=== PATIENT | male | born 1965 | race Caucasian/White ===

== ENCOUNTER 2018-01-08 17:04 | Inpatient (IN) | payer BC ==
[~2018-01-08] VITALS: Ht 182.9 cm; Wt 88.9 kg
[~2018-01-08 17:04] MED LIST: AMX500 PO; CMD25 PO; CRD200 PO; SIMV20TA2 PO
[2018-01-08] MEDS ORDERED: SODIUM CHLORIDE 0.9% 1000ML 1,000 ML IV STA ×3 (17:43→20:09)
[2018-01-08] MEDS ORDERED: SODIUM CHLORIDE 0.9% 500ML 500 ML IV STA (17:43)
[2018-01-08] MEDS ORDERED: ONDANSETRON INJ 2 MG/ML 2 ML VIAL IV STA (17:46)
[2018-01-08] MEDS: HYDROmorphone INJ 0.5 MG/0.5 ML SYR IV PRN ×2 (18:00→22:57)
[2018-01-08] MEDS ORDERED: CRD200 PO (18:05)
[2018-01-08] MEDS ORDERED: WARF2.5T8 PO ×2 (18:05)
[2018-01-08 18:08] LABS: HEMATOCRIT 43.6 % (42-52); HEMOGLOBIN 15.6 g/dL (14.0-18.0); MEAN CELL VOLUME 86.7 fL (80-100); MEAN CORPUSCULAR HGB CONC 35.8 g/dl (32-36); MEAN PLATELET VOLUME 9.5 fL (7.4-10.4); PLATELET COUNT 211 K/uL (130-400); RED CELL DISTRIBUTION WIDTH CV 13.1 % (11.5-14.5); RED CELL DISTRIBUTION WIDTH SD 41.7 fL (36.4-46.3); WHITE BLOOD COUNT 13.69 K/uL (4.8-10.8)
--- NOTE | 2018-01-08 18:21 | DIAGNOSTIC IMAGING REPORT ---
ABD/PELVIS NO IV OR ORAL CONT CT DOSE: 499.83 mGy.cm HISTORY: Pain anuria, LLQ pain, dehydration TECHNIQUE: Multiaxial CT images of the abdomen and pelvis were performed without contrast. A dose lowering technique was utilized adhering to the principles of ALARA. COMPARISON STUDY: None. FINDINGS: The lung bases are clear. The unenhanced liver, spleen, gallbladder, pancreas, kidneys, and adrenal glands are within normal limits. No bowel wall thickening or obstruction. The pelvic organs are unremarkable. No suspicious lytic or blastic osseous lesions. 2 cm left renal cyst. The adrenal glands are normal. Nonobstructive bowel pattern. Normal appendix. IMPRESSION: Small left renal cyst. Otherwise negative study. The above report was generated using voice recognition software. It may contain grammatical, syntax or spelling errors. Electronically signed by: Morgan Crowell M.D. 01/08/2018 6:20 PM Dictated Date/Time: 01/08/2018 6:18 PM
[2018-01-08 18:25] LABS: ALBUMIN 3.6 gm/dl (3.4-5.0); BLOOD UREA NITROGEN 10 mg/dl (7-18); CALCIUM 7.9 mg/dl (8.5-10.1); CARBON DIOXIDE 26 mmol/L (21-32); CREATININE 1.28 mg/dl (0.60-1.40); GLUCOSE 135 mg/dl (70-99); LIPASE 88 U/L (73-393); SODIUM 137 mmol/L (136-145)
[2018-01-08 18:26] LABS: BASO % 0.1 %; BASO ABS # 0.01 K/uL (0-0.2); IG# 0.05 K/uL (0.00-0.02); INR 2.5 (0.9-1.1); LYMPH ABS # 0.82 K/uL (1.2-3.4); MONO % 5.8 %; NEUT % 87.7 %; NEUT ABS # 12.01 K/uL (1.4-6.5); PTT PATIENT 38.7 SECONDS (21.0-31.0)
[2018-01-08 18:35] LABS: ALKALINE PHOSPHATASE 87 U/L (45-117); ALT/SGPT 209 U/L (12-78); AST/SGOT 119 U/L (15-37); CKMB 0.9 ng/ml (0.5-3.6); TOTAL PROTEIN 7.4 gm/dl (6.4-8.2)
[2018-01-08] MEDS ORDERED: POTASSIUM CHLORIDE 10 MEQ TABCR PO STA (19:46)
[2018-01-08] MEDS ORDERED: MAGNESIUM SULFATE 1GM / D5W 1 GM BAG IV STA (20:09)
[2018-01-08] MEDS ORDERED: ACETYLCYSTEINE IV 21 HOUR REGIMEN IV STA (20:16)
--- NOTE | 2018-01-08 20:16 | EMERGENCY ROOM VISIT NOTE ---
History Report prepared by Destini: Bob Blue Under the Supervision of: Dr. Beck Golden M.D. First contact with patient: 17:38 Chief Complaint: UNABLE TO VOID Stated Complaint: ABDOMINAL PAIN, UNABLE TO URINATE History of Present Illness The patient is a 52 year old male who presents to the Emergency Room with complaints of a persistent inability to urinate today. He states that he currently cannot urinate, and it valencia whenever he tries to urinate. He notes that he has been sick for a week, and has not been eating or drinking well. The patient says that he has been having diarrhea over the past few days, and 4 days ago, he had around 6 episodes. He says that he has had intermittent chills and warm spells with sweats. He notes that currently he cannot have a bowel movement, and it valencia whenever he tries to go. He adds that he has some abdominal pain and low lumbar back pain with this. He rates his pain as a 7 or 8 out of 10. He says that he takes Amiodarone for an irregular heartbeat. He notes that he has been taking Tylenol during his illness. Pt denies LOC, headache, visual changes, neck pain, chest pain, breathing difficulties, nausea , vomiting, melena, hematochezia, numbness, weakness, lymphadenopathy, rash, or other complaints. Source of History: patient Onset: Today Position: other (global) Symptom Intensity: cannot urinate Quality: other (inability to urinate) Timing: other (persistent) Associated Symptoms: + chills, + diaphoresis (night sweats), + abdominal pain, + back pain, + diarrhea, + urinary symptoms Review of Systems See HPI for pertinent positives and negatives. A total of ten systems were reviewed and were otherwise negative. Past Medical & Surgical Medical Problems: (1) Ebsteins anomaly (2) Paroxysmal atrial fibrillation (3) Sepsis Surgical Problems: (1) Hx of atrial septal defect repair Family History No pertinent family history Social History Smoking Status: Never Smoker Alcohol Use: occasionally Marital Status: Housing Status: lives with family Occupation Status: employed Current/Historical Medications Scheduled Amiodarone HCl (Amiodarone HCl), 200 MG PO DAILY Atorvastatin (Lipitor), 1 TAB PO DAILY Warfarin Sod (Jantoven), 2.5 MG PO 5XWK Warfarin Sod (Jantoven), 1.25 MG PO 2XWK Allergies Coded Allergies: No Known Allergies (Verified , 06/16/05) Physical Exam Vital Signs Date Time Temp Pulse Resp B/P (MAP) Pulse Ox O2 Delivery O2 Flow Rate FiO2 01/08/18 23:04 37.9 83 14 122/92 94 Room Air 01/08/18 21:07 78 01/08/18 21:00 78 17 118/90 94 Room Air 01/08/18 19:54 95 16 125/82 98 Room Air 01/08/18 18:37 100 16 112/77 95 Room Air 01/08/18 18:00 98 Room Air 01/08/18 17:08 37.1 120 20 126/77 99 Room Air Physical Exam GENERAL: Awake, alert, well-appearing, in no distress HENT: Normocephalic, atraumatic. Oropharynx unremarkable. EYES: Normal conjunctiva. Sclera non-icteric. NECK: Supple. No nuchal rigidity. FROM. No masses. RESPIRATORY: Clear to auscultation. No wheezes. No rales. Normal respiratory effort. CARDIAC: Normal rate. Normal rhythm. No murmurs. No rubs. Extremities warm and well perfused. Pulses equal. No JVD. GI: Soft, non-distended. Left lower quadrant tenderness. No rebound or guarding. No masses. RECTAL: Deferred. MUSCULOSKELETAL: Atraumatic. Chest examination reveals no tenderness. The back is symmetrical on inspection without obvious abnormality. There is no CVA tenderness to palpation. No joint edema. LOWER EXTREMITIES: Calves are equal size bilaterally and non-tender. No edema. No discoloration. NEURO: Normal sensorium. No sensory or motor deficits noted. SKIN: No rash or jaundice noted. Medical Decision & Procedures ER Provider Diagnostic Interpretation: CT: Radiology results as stated below per my review and radiologist interpretation ABD/PELVIS NO IV OR ORAL CONT CT DOSE: 499.83 mGy.cm HISTORY: Pain anuria, LLQ pain, dehydration TECHNIQUE: Multiaxial CT images of the abdomen and pelvis were performed without contrast. A dose lowering technique was utilized adhering to the principles of ALARA. COMPARISON STUDY: None. FINDINGS: The lung bases are clear. The unenhanced liver, spleen, gallbladder, pancreas, kidneys, and adrenal glands are within normal limits. No bowel wall thickening or obstruction. The pelvic organs are unremarkable. No suspicious lytic or blastic osseous lesions. 2 cm left renal cyst. The adrenal glands are normal. Nonobstructive bowel pattern. Normal appendix. IMPRESSION: Small left renal cyst. Otherwise negative study. The above report was generated using voice recognition software. It may contain grammatical, syntax or spelling errors. Electronically signed by: Morgan Crowell M.D. 01/08/2018 6:20 PM Dictated Date/Time: 01/08/2018 6:18 PM Laboratory Results 01/08/18 17:56 Red Blood Count 5.03, Mean Corpuscular Volume 86.7, Mean Corpuscular Hemoglobin 31.0, Mean Corpuscular Hemoglobin Concent 35.8, Mean Platelet Volume 9.5, Neutrophils (%) (Auto) 87.7, Lymphocytes (%) (Auto) 6.0, Monocytes (%) (Auto) 5.8, Eosinophils (%) (Auto) 0.0, Basophils (%) (Auto) 0.1, Neutrophils # (Auto) 12.01, Lymphocytes # (Auto) 0.82, Monocytes # (Auto) 0.80, Eosinophils # (Auto) 0.00, Basophils # (Auto) 0.01 01/08/18 17:56 Test 01/08/18 17:56 01/08/18 20:13 01/08/18 20:20 01/08/18 21:42 White Blood Count 13.69 K/uL (4.8-10.8) Red Blood Count 5.03 M/uL (4.7-6.1) Hemoglobin 15.6 g/dL (14.0-18.0) Hematocrit 43.6 % (42-52) Mean Corpuscular Volume 86.7 fL (80-100) Mean Corpuscular Hemoglobin 31.0 pg (25-34) Mean Corpuscular Hemoglobin Concent 35.8 g/dl (32-36) Platelet Count 211 K/uL (130-400) Mean Platelet Volume 9.5 fL (7.4-10.4) Neutrophils (%) (Auto) 87.7 % Lymphocytes (%) (Auto) 6.0 % Monocytes (%) (Auto) 5.8 % Eosinophils (%) (Auto) 0.0 % Basophils (%) (Auto) 0.1 % Neutrophils # (Auto) 12.01 K/uL (1.4-6.5) Lymphocytes # (Auto) 0.82 K/uL (1.2-3.4) Monocytes # (Auto) 0.80 K/uL (0.11-0.59) Eosinophils # (Auto) 0.00 K/uL (0-0.5) Basophils # (Auto) 0.01 K/uL (0-0.2) RDW Standard Deviation 41.7 fL (36.4-46.3) RDW Coefficient of Variation 13.1 % (11.5-14.5) Immature Granulocyte % (Auto) 0.4 % Immature Granulocyte # (Auto) 0.05 K/uL (0.00-0.02) Prothrombin Time 25.8 SECONDS (9.0-12.0) Prothromb Time International Ratio 2.5 (0.9-1.1) Activated Partial Thromboplast Time 38.7 SECONDS (21.0-31.0) Partial Thromboplastin Ratio 1.5 Anion Gap 9.0 mmol/L (3-11) Est Creatinine Clear Calc Drug Dose 77.6 ml/min Estimated GFR () 73.6 Estimated GFR (Non- 63.5 BUN/Creatinine Ratio 7.6 (10-20) Calcium Level 7.9 mg/dl (8.5-10.1) Magnesium Level 1.6 mg/dl (1.8-2.4) Total Bilirubin 1.2 mg/dl (0.2-1) Direct Bilirubin 0.2 mg/dl (0-0.2) Aspartate Amino Transf (AST/SGOT) 119 U/L (15-37) Alanine Aminotransferase (ALT/SGPT) 209 U/L (12-78) Alkaline Phosphatase 87 U/L (45-117) Total Creatine Kinase 133 U/L (39-308) Creatine Kinase MB 0.9 ng/ml (0.5-3.6) Creatine Kinase MB Ratio 0.7 (0-3.0) Total Protein 7.4 gm/dl (6.4-8.2) Albumin 3.6 gm/dl (3.4-5.0) Lipase 88 U/L (73-393) Thyroid Stimulating Hormone (TSH) 2.240 uIu/ml (0.300-4.500) Troponin I < 0.015 ng/ml (0-0.045) Procalcitonin 0.14 ng/ml (0-0.5) Acetaminophen Level 3 ug/ml (10-30) Hepatitis C Antibody NEG (NEG) Urine Color YELLOW Urine Appearance CLOUDY (CLEAR) Urine pH 6.0 (4.5-7.5) Urine Specific [place] 1.019 (1.000-1.030) Urine Protein 1+ (NEG) Urine Glucose (UA) NEG (NEG) Urine Ketones TRACE (NEG) Urine Occult Blood 2+ (NEG) Urine Nitrite POS (NEG) Urine Bilirubin NEG (NEG) Urine Urobilinogen NEG (NEG) Urine Leukocyte Esterase LARGE (NEG) Urine WBC (Auto) >30 /hpf (0-5) Urine RBC (Auto) 5-10 /hpf (0-4) Urine Hyaline Casts (Auto) 1-5 /lpf (0-5) Urine Epithelial Cells (Auto) 0-5 /lpf (0-5) Urine Bacteria (Auto) 4+ (NEG) Urine Yeast (Auto) BUDDING (NONE PRSENT) Lactic Acid Level 2.6 mmol/L (0.4-2.0) Laboratory results reviewed by me Medications Administered Medications (Trade) Dose Ordered Sig/Vladimir Route Start Time Stop Time Status Last Admin Dose Admin Sodium Chloride 1,000 ml @ 125 mls/hr Q8H STAT IV 01/08/18 17:43 01/09/18 01:42 01/08/18 17:43 125 MLS/HR Sodium Chloride 500 ml @ 999 mls/hr Q31M STAT IV 01/08/18 17:43 01/08/18 18:13 DC 01/08/18 17:43 999 MLS/HR Hydromorphone HCl (Dilaudid Inj) 0.5 mg Q15M PRN IV 01/08/18 18:00 01/22/18 17:59 01/08/18 22:57 0.5 MG Ondansetron HCl (Zofran Inj) 4 mg NOW STAT IV 01/08/18 17:46 01/08/18 17:47 DC 01/08/18 17:59 4 MG Potassium Chloride (Klor-Con M10) 40 meq NOW STAT PO 01/08/18 19:46 01/08/18 19:49 DC 01/08/18 19:53 40 MEQ Sodium Chloride 1,000 ml @ 999 mls/hr Q1H1M STAT IV 01/08/18 19:49 01/08/18 20:49 DC 01/08/18 19:54 999 MLS/HR Magnesium Sulfate (Magnesium Sulfate 1gm / D5W) 1 gm NOW STAT IV 01/08/18 20:09 01/08/18 20:12 DC 01/08/18 20:29 1 GM Sodium Chloride 1,000 ml @ 999 mls/hr Q1H1M STAT IV 01/08/18 20:09 01/08/18 21:09 DC 01/08/18 20:29 999 MLS/HR Acetylcysteine (Acetadote Iv 21 Hour Regimen) 1 ea NOW STAT IV 01/08/18 20:16 01/08/18 20:17 DC 01/08/18 20:54 1 EA Acetylcysteine 63433 mg/Dextrose 265.7 ml @ 200 mls/hr 2100 IV 01/08/18 21:00 01/08/18 22:20 DC 01/08/18 20:54 200 MLS/HR Acetylcysteine 4380 mg/Dextrose 521.9 ml @ 125 mls/hr 2200 IV 01/08/18 22:00 01/09/18 02:11 01/08/18 22:57 125 MLS/HR Ceftriaxone Sodium (Rocephin Inj) 1 gm NOW STAT IV 01/08/18 21:28 01/08/18 21:29 DC 01/08/18 21:54 1 GM Procedure Bladder catheterization by physician: The patient had urinary retention. He has hypospadias with significant surgical changes. He has openings at the base of the penis as well as in the perineum at the base of the scrotum. Nursing was unsuccessful in catheterizing the patient. He had a sterile field set and was prepped. He underwent attempts at catheterization by me of the penile shaft orifice but this was unsuccessful. He notes he has been catheterized in the perineal orifice in the past. This orifice was very small. I used an 8 Tajik pediatric catheter to drain his bladder. This was done in standard fashion and without complication. The patient felt better with drainage. ECG Per My Interpretation Indication: abdominal pain Rate (beats per minute): 81 Rhythm: sinus rhythm Findings: PAC, ST depression, T-wave inversion (Anterolateral), prolonged QT Comparison ECG Date: compared to Apr 08 2011, ST depression is slighly worse ED Course 1740: The patient was evaluated in room C2B. A complete history and physical exam was performed. 1742: NSS 500 ml @ 999 mls/hr IV, NSS 1000 ml @ 125 mls/hr IV. 1800: Dilaudid Inj 0.5 mg IV PRN. 1935: I reevaluated the patient and he is feeling somewhat better but very thirsty. 1945: Klor-COn M10 40 meq PO. 1948: NSS 1000 ml @ 999 mls/hr IV. 2008: Magnesium Sulfate 1 gm / D5W IV. 2014: Poison Control recommended IV Acetadote. 2016: Acetadote IV 21 Hour Regimen 1 ea IV. 2022: I discussed the patient with Dr. Shin Vance eligibility specialist - he will evaluate the patient for further treatment. 2024: Upon reexamination, the patient was resting. I discussed the test results and treatment plan with him. The patient will be evaluated for further management. 2127: Rocephin Inj 1 gm IV. Medical Decision Prior records/ancillary studies reviewed and summarized above. Nursing notes reviewed and agree them. The patient's history was concerning for weakness. Differential diagnosis: Etiologies such as metabolic, infection, hypo/hyperglycemia, electrolyte abnormalities, cardiac sources, intracerebral event, toxicologic, neurologic, as well as others were entertained. Physical examination: As above. ER treatment provided: IV Lock IV normal saline hydration On reassessment the patient felt better. Oral potassium IV magnesium IV Acetadote Diagnostics interpretation by me: ECG: As above. More pronounced ST changes. The labs revealed mild leukocytosis on CBC. Chemistry panel revealed hypomagnesemia and hypokalemia. The patient also has elevated LFTs which is concerning in light of his Tylenol use. Imaging studies: CT as above The patient presented with urinary issues and lower abdominal pain. He has had diarrhea and poor p.o. intake. He was hydrated. His chemistry panel showed abnormal electrolytes. He also has significant elevation of LFTs. He notes having multiple doses of Tylenol per day for about 1 week for his symptoms. The patient was treated as above. Poison control was consulted and they recommended Acetadote. This was initiated. Nursing had difficulty catheterizing the patient. I did use a straight cath to drain his bladder. Apparently he has had multiple surgeries for hypospadias and has issues with urinating from both the base of the penis as well as the perineum. Consultation: A consultation was placed with the hospitalist. The case was discussed and diagnostics were reviewed. The patient was evaluated in the ER for further treatment. Medication Reconcilliation Current Medication List: was personally reviewed by me Blood Pressure Screening Patient's blood pressure: Normal blood pressure Consults Time Called: 2019 Consulting Physician: Dr. Shin Vance eligibility specialist Returned Call: 2022 I discussed the patient with Dr. Shin Vance eligibility specialist - he will evaluate the patient for further treatment. Impression Primary Impression: Dehydration Additional Impressions: Elevated LFTs Accidental Tylenol overdose Scribe Attestation The scribe's documentation has been prepared under my direction and personally reviewed by me in its entirety. I confirm that the note above accurately reflects all work, treatment, procedures, and medical decision making performed by me. Departure Information Dispostion Being Evaluated By Hospitalist Referrals Lion Weber M.D. (PCP) Patient Instructions My [facility] Problem Qualifiers
[2018-01-08] MEDS ORDERED: DEXTROSE 5% IV SCH ×2 (21:00→22:00)
[2018-01-08] MEDS ORDERED: ACETYLCYSTEINE IV SCH ×2 (21:00→22:00)
[2018-01-08] MEDS ORDERED: CEFTRIAXONE SOD INJ 1 GM ADDVIAL IV STA (21:28)
[2018-01-08] MEDS ORDERED: LPT40 PO (22:04)
--- NOTE | 2018-01-08 22:42 | History and Physical ---
History & Physical Date & Time of Service: January 08, 2018 at 21:49 Chief Complaint: Abdominal Pain, Unable To Urinate Primary Care Physician: Lion Weber M.D. History of Present Illness Source: patient, clinic records, hospital records Pt is 52 y/o M with PMH PAF, post ASD repair, Ebstiens anomaly presented to ER with complaints of difficulty urinating. Patient reports 1 week ago started with lower back pain, chills, body aches, headache and increased urination and frequency. He reports using a box of Coricidin HBP last week (chlorpheniramine 4mg/acetaminophen 650mg per tab) thinks had 20 tabs in box). Patient states 3- 4 days ago started with diarrhea and has had 8-10 episodes. No diarrhea today. States past several days with lower abdominal aching. Today started with tactile fevers. Yesterday started with dysuria. Today patient states decreased urination and difficulty urinating. States is only able to urinate small amount today. He reports decreased appetite and decreased fluid intake the past week. Denies recent travel. Took 1 g amoxicillin 1 week ago prior to dental appointment, no other antibiotic use. Patient states his started with chills and body aches this week. Denies any hematuria, pyuria, penile discharge, scrotal pain/edema, history BPH, nocturia, or difficulty initiating urine stream. Denies nausea, vomiting, melena, hematochezia, dizziness, syncope , vision changes, neck pain, CP, SOB, orthopnea, palpitations, cough, sore throat, choking, otalgia, rhinorrhea, paresthesias, extremity weakness, extremity edema, rashes, weight loss. Past Medical/Surgical History Medical Problems: (1) Ebsteins anomaly Status: Chronic (2) Paroxysmal atrial fibrillation Status: Chronic Surgical Problems: (1) Hx of atrial septal defect repair Permanent Comment: 1994 Status: Resolved Family History FH: breast cancer Social History Smoking Status: Never Smoker Smokeless Tobacco Use: No Alcohol Use: 6 beers once a week. Last drink 2 weeks ago. Drug Use: none Marital Status: Housing status: lives with significant other Occupational Status: employed Allergies Coded Allergies: No Known Allergies (Verified , 06/16/05) Home Medications Scheduled Amiodarone HCl (Amiodarone HCl), 200 MG PO DAILY Atorvastatin (Lipitor), 1 TAB PO DAILY Warfarin Sod (Jantoven), 2.5 MG PO 5XWK Warfarin Sod (Jantoven), 1.25 MG PO 2XWK Review of Systems See HPI for pertinent positives & negatives. All other systems reviewed and were otherwise negative Physical Exam Vital Signs Date Time Temp Pulse Resp B/P (MAP) Pulse Ox O2 Delivery O2 Flow Rate FiO2 01/08/18 21:07 78 01/08/18 21:00 78 17 118/90 94 Room Air 01/08/18 19:54 95 16 125/82 98 Room Air 01/08/18 18:37 100 16 112/77 95 Room Air 01/08/18 18:00 98 Room Air 01/08/18 17:08 37.1 120 20 126/77 99 Room Air General Appearance: WD/WN, no apparent distress Head: normocephalic, atraumatic Eyes: normal inspection, sclerae normal ENT: hearing grossly normal, pharynx normal, + pertinent finding (Mucous membranes dry) Neck: supple, trachea midline Respiratory/Chest: lungs clear, normal breath sounds, no respiratory distress Cardiovascular: regular rate, rhythm (+ murmur) Abdomen/GI: normal bowel sounds, soft, + pertinent finding (+ Suprapubic tenderness to palpation) Back: no CVA tenderness, + pertinent finding (Positive mild tenderness across lower lumbar region, range of motion intact) Extremities/Musculoskelatal: normal inspection, no calf tenderness, normal capillary refill, no pedal edema, normal range of motion, non-tender Neurologic/Psych: alert, normal mood/affect, oriented x 3 Skin: normal color, warm/dry Diagnostics Laboratory Results Results Past 24 Hours Test 01/08/18 17:56 01/08/18 20:13 01/08/18 20:20 01/08/18 20:40 Range/Units White Blood Count 13.69 4.8-10.8 K/uL Red Blood Count 5.03 4.7-6.1 M/uL Hemoglobin 15.6 14.0-18.0 g/dL Hematocrit 43.6 42-52 % Mean Corpuscular Volume 86.7 80-100 fL Mean Corpuscular Hemoglobin 31.0 25-34 pg Mean Corpuscular Hemoglobin Concent 35.8 32-36 g/dl Platelet Count 211 130-400 K/uL Mean Platelet Volume 9.5 7.4-10.4 fL Neutrophils (%) (Auto) 87.7 % Lymphocytes (%) (Auto) 6.0 % Monocytes (%) (Auto) 5.8 % Eosinophils (%) (Auto) 0.0 % Basophils (%) (Auto) 0.1 % Neutrophils # (Auto) 12.01 1.4-6.5 K/uL Lymphocytes # (Auto) 0.82 1.2-3.4 K/uL Monocytes # (Auto) 0.80 0.11-0.59 K/uL Eosinophils # (Auto) 0.00 0-0.5 K/uL Basophils # (Auto) 0.01 0-0.2 K/uL RDW Standard Deviation 41.7 36.4-46.3 fL RDW Coefficient of Variation 13.1 11.5-14.5 % Immature Granulocyte % (Auto) 0.4 % Immature Granulocyte # (Auto) 0.05 0.00-0.02 K/uL Prothrombin Time 25.8 9.0-12.0 SECONDS Prothromb Time International Ratio 2.5 0.9-1.1 Activated Partial Thromboplast Time 38.7 21.0-31.0 SECONDS Partial Thromboplastin Ratio 1.5 Sodium Level 137 136-145 mmol/L Potassium Level 3.0 3.5-5.1 mmol/L Chloride Level 102 98-107 mmol/L Carbon Dioxide Level 26 21-32 mmol/L Anion Gap 9.0 3-11 mmol/L Blood Urea Nitrogen 10 7-18 mg/dl Creatinine 1.28 0.60-1.40 mg/dl Est Creatinine Clear Calc Drug Dose 77.6 ml/min Estimated GFR () 73.6 Estimated GFR (Non- 63.5 BUN/Creatinine Ratio 7.6 10-20 Random Glucose 135 70-99 mg/dl Calcium Level 7.9 8.5-10.1 mg/dl Magnesium Level 1.6 1.8-2.4 mg/dl Total Bilirubin 1.2 0.2-1 mg/dl Direct Bilirubin 0.2 0-0.2 mg/dl Aspartate Amino Transf (AST/SGOT) 119 15-37 U/L Alanine Aminotransferase (ALT/SGPT) 209 12-78 U/L Alkaline Phosphatase 87 45-117 U/L Total Creatine Kinase 133 39-308 U/L Creatine Kinase MB 0.9 0.5-3.6 ng/ml Creatine Kinase MB Ratio 0.7 0-3.0 Troponin I < 0.015 < 0.015 0-0.045 ng/ml Total Protein 7.4 6.4-8.2 gm/dl Albumin 3.6 3.4-5.0 gm/dl Lipase 88 73-393 U/L Thyroid Stimulating Hormone (TSH) 2.240 0.300-4.500 uIu/ml Acetaminophen Level 3 10-30 ug/ml Hepatitis C Antibody NEG NEG Urine Color YELLOW Urine Appearance CLOUDY CLEAR Urine pH 6.0 4.5-7.5 Urine Specific Savage 1.019 1.000-1.030 Urine Protein 1+ NEG Urine Glucose (UA) NEG NEG Urine Ketones TRACE NEG Urine Occult Blood 2+ NEG Urine Nitrite POS NEG Urine Bilirubin NEG NEG Urine Urobilinogen NEG NEG Urine Leukocyte Esterase LARGE NEG Urine WBC (Auto) >30 0-5 /hpf Urine RBC (Auto) 5-10 0-4 /hpf Urine Hyaline Casts (Auto) 1-5 0-5 /lpf Urine Epithelial Cells (Auto) 0-5 0-5 /lpf Urine Bacteria (Auto) 4+ NEG Urine Yeast (Auto) BUDDING NONE PRSENT Test 01/08/18 21:42 Range/Units Microbiology Results 01/08/18 Blood Culture, Received Pending 01/08/18 Blood Culture, Received Pending 01/08/18 Urine Culture, Received Pending Diagnostic Radiology CT ABDOMEN PELVIS: IMPRESSION: Small left renal cyst. Otherwise negative study. EKG EKG: Sinus rhythm, rate 81. Nonspecific ST changes anterolateral Outpatient EKG from 09/2017 reviewed and reports is ST and T-wave abnormality in inferior and anterolateral leads with possible left atrial enlargement Impression Assessment and Plan UTI/ABDOMINAL PAIN Reported one-week history low back pain, body aches, tactile fevers and increased urination with poor oral intake week ago started with lower back pain , chills, body aches, headache and increased urination and frequency. Yesterday started with decreased urination and dysuria. Suprapubic tenderness x couple days. In ER, AST: 119 (41 on 09/2017). ALT: 209 (58 on 09/2017). Total bili: 1.2 (1.0 on 09/2017). Lipase: 88. CT ABD/pelvis: Left renal cyst. UA: 2+ occult blood, large leuk,> 30 WBC,5-10 RBC, 4+ bacteria Patient given 1500 mL bolus NSS in ER, Zofran 4 mg, Dilaudid 0.5 mg IV -Pending urine culture -Pending lactic acid, pro-calcitonin, blood cultures -IVF -Rocephin IV -Repeat CBC in a.m. DEHYDRATION Patient with 8-10 episodes of diarrhea over the past 4 days. No diarrhea today. Poor oral intake past week with his illness. Cr: 1.28 (1.3 baseline). Initially tachycardic 120 down to 78. Patient given 1500 mL bolus NSS in ER -IVF -Monitor CBC and PRP -If continued diarrhea consider stool studies, C. difficile testing HYPOKALEMIA K: 3.0. Probable secondary to poor oral intake/diarrhea. Patient given potassium 40 MEQ p.o. in ER. -Replace -Monitor electrolytes HYPOMAGNESIA Magnesium: 1.6. Probable secondary to poor oral intake/diarrhea. -Replace -Magnesium lab in a.m. TYLENOL OVERUSE He reports using a box of Coricidin HBP last week (chlorpheniramine 4mg/ acetaminophen 650mg per tab) thinks had 20 tabs in box). Patient states to not take any Tylenol products today may have taken 1 pill yesterday. Today acetaminophen level: 3. AST: 119 (41 on 09/2017). ALT: 209 (58 on 09/2017). Patient started on acetylcysteine in ER. -Monitor liver functions PAROXYSMAL ATRIAL FIBRILLATION ON COUMADIN Current sinus rhythm. INR: 2.5 -Monitor INR -Continue amiodarone -Continue Coumadin per attending PROLONGED QTC QTc: 490 -Avoid QT prolonging agents DVT Prophylaxis -On Coumadin Disposition admit telemetry Full code Follows with Dr John for routine care Pt was seen with Dr Cobian. See addendum for plan and assessment. Resuscitation Status Full code VTE Prophylaxis Will order VTE Prophylaxis: Yes Additional Copies To Lion Weber M.D. Assessment/Plan IM ATTENDING : Patient seen and examined. History obtained from patient and records. Preceding documentation by Ms. Herminia aGray PA-C, reviewed. In addition, urinary retention noted in the ER. Perineal catheterization through congenital defect to decompress the bladder done by ER provider. FINAL ASSESSMENT AND PLAN as follows: 1. Severe sepsis SIRS plus lactic acid elevation secondary to complicated urinary tract infection hx hypospadias sp childhood surgery, 2. Transaminitis. Possible differentials : tylenol toxicity amiodarone toxicity statin therapy. Sepsis possibly contributory to abnormal LFTs 3. Paroxysmal atrial flutter. on Coumadin. Patient NSR, INR therapeutic. 4. History of Ebstein anomaly status post surgery (ASD repair). 5. Hypokalemia secondary to illness 6. Hyperglycemia, rule out diabetes. 7. past tobacco abuse. GMF CS, IV Cefepime, Vancomycin for complicated UTI IV fluids, follow lactic acid Urology consult RE urinary retention. Follow LFTs. Complete Acetadote protocol as per Poison control recommendations. Liver ultrasound. Hold statin for now. May need GI consult if progression of LFTs. May need touch base with [facility] if LFT abnormalities persist w/ Amiodarone Rx. Replace K check hemoglobin A1c. DVT prophylaxis, Coumadin, INR 2-3. FULL CODE.
[2018-01-08] MEDS ORDERED: POTASSIUM CHLORIDE 10 MEQ TABCR PO ONE (23:15)
[2018-01-09] MEDS ORDERED: LORAZEPAM 2 MG/ML 1 ML VIAL IV PRN (00:15)
[2018-01-09] MEDS ORDERED: PROCHLORPERAZINE INJ 5 MG in SYRINGE 4 ML IV PRN (00:15)
[2018-01-09] MEDS ORDERED: POTASSIUM CHLORIDE 20 MEQ TABCR PO ONE (00:30)
[2018-01-09] MEDS ORDERED: NSS + 20MEQ KCL 1000ML 1,000 ML IV SCH (00:30)
[2018-01-09] MEDS ORDERED: CEFEPIME IV 2,000 MG in SYRINGE 7.5 ML IV ONE (00:30)
[2018-01-09 00:39] LABS: BASO % 0.1 %; BASO ABS # 0.01 K/uL (0-0.2); HEMATOCRIT 39.9 % (42-52); HEMOGLOBIN 14.1 g/dL (14.0-18.0); IG# 0.06 K/uL (0.00-0.02); LYMPH % 3.3 %; LYMPH ABS # 0.41 K/uL (1.2-3.4); MEAN CELL VOLUME 87.5 fL (80-100); MEAN CORPUSCULAR HEMOGLOBIN 30.9 pg (25-34); MEAN CORPUSCULAR HGB CONC 35.3 g/dl (32-36); MEAN PLATELET VOLUME 9.6 fL (7.4-10.4); MONO % 2.8 %; MONO ABS # 0.35 K/uL (0.11-0.59); NEUT % 93.3 %; NEUT ABS # 11.62 K/uL (1.4-6.5); PLATELET COUNT 183 K/uL (130-400); RED CELL DISTRIBUTION WIDTH CV 13.1 % (11.5-14.5); RED CELL DISTRIBUTION WIDTH SD 42.1 fL (36.4-46.3); WHITE BLOOD COUNT 12.45 K/uL (4.8-10.8)
[2018-01-09 00:41] VITALS: BP 121/69; PULSE 80; TEMP 37.7; O2SAT 96; Ht 182.9 cm; Wt 88.9 kg
[2018-01-09] MEDS ORDERED: CEFEPIME CONSULT ACTIVE PRN (00:45)
[2018-01-09] MEDS: TRAMADOL HCL 50 MG TAB PO PRN ×3 (00:47→19:15)
[2018-01-09 00:52] LABS: INR 2.4 (0.9-1.1)
[2018-01-09 01:00] LABS: ALBUMIN 2.5 gm/dl (3.4-5.0); CALCIUM 6.9 mg/dl (8.5-10.1); CREATININE 0.97 mg/dl (0.60-1.40); POTASSIUM 3.2 mmol/L (3.5-5.1)
[2018-01-09 01:05] LABS: TOTAL PROTEIN 5.8 gm/dl (6.4-8.2)
[2018-01-09] MEDS ORDERED: MAGNESIUM SULFATE 1GM / D5W 100 ML IV STA ×2 (01:25→06:25)
[2018-01-09] MEDS ORDERED: CALCIUM GLUCONATE 10% 2,000 MG in SODIUM CHLORIDE 0.9% 50ML 50 ML IV STA (01:31)
[2018-01-09] MEDS ORDERED: POTASSIUM CHLORIDE 10 MEQ TABCR PO STA ×2 (01:40→06:25)
[2018-01-09] MEDS ORDERED: LACTATED RINGER'S 1000ML 1,000 ML IV ONE (01:45)
[2018-01-09] MEDS ORDERED: DOCUSATE SODIUM 100 MG CAP PO ONE (01:51)
[2018-01-09] MEDS: MoRPHine SULFATE 4 MG/ML 1 ML CARP\\VIAL IV PRN (02:00)
[2018-01-09] MEDS ORDERED: POLYETHYLENE (MIRALAX) 17 GM PACK PO PRN (02:00)
[2018-01-09] MEDS ORDERED: ACETYLCYSTEINE IV SCH ×2 (02:00→19:00)
[2018-01-09] MEDS ORDERED: DEXTROSE 5% IV SCH ×2 (02:00→19:00)
[2018-01-09] MEDS ORDERED: BISACODYL 10 MG SUPP PR STA (02:10)
[2018-01-09] MEDS ORDERED: POLYETHYLENE (MIRALAX) 17 GM PACK PO ONE (02:10)
[2018-01-09] MEDS ORDERED: WARFARIN SOD 2 MG TAB PO ONE (03:15)
[2018-01-09] MEDS ORDERED: LACTATED RINGER'S 1000ML 1,000 ML IV SCH (03:45)
[2018-01-09 06:13] LABS: ALBUMIN 2.4 gm/dl (3.4-5.0); CALCIUM 7.7 mg/dl (8.5-10.1); CREATININE 0.95 mg/dl (0.60-1.40); POTASSIUM 3.3 mmol/L (3.5-5.1)
[2018-01-09 06:16] LABS: TOTAL PROTEIN 5.5 gm/dl (6.4-8.2)
[2018-01-09] MEDS ORDERED: VANCOMYCIN IV 2,250 MG in SODIUM CHLORIDE 0.9% 500ML 500 ML IV STA (06:27)
[2018-01-09] MEDS ORDERED: VANCOMYCIN CONSULT ACTIVE PRN (06:30)
[2018-01-09] MEDS ORDERED: NSS + 20MEQ KCL 1000ML 1,000 ML IV ONE (06:30)
[2018-01-09 06:41] LABS: HEMOGLOBIN A1C 5.8 % (4.5-5.6)
--- NOTE | 2018-01-09 07:10 | DIAGNOSTIC IMAGING REPORT ---
(LIVER) ABDOMEN LIMITED HISTORY: 52 years-old Male abn lfts acutely abnormal LFTs. Acute left lower quadrant abdominal pain COMPARISON: None available TECHNIQUE: CT abdomen and pelvis 01/08/2018 FINDINGS: The pancreas is not well seen. The imaged portions appear unremarkable. Liver appears unremarkable without focal mass or intrahepatic biliary ductal dilation. The previously noted linear calcification in the gallbladder fundus seen on CT study 01/08/2018 is not definitively seen by ultrasound. No definite shadowing cholelithiasis, gallbladder wall thickening or pericholecystic fluid collections. Sonographic Cortés sign was not reported. Common bile duct appears normal, 3 mm. The imaged right kidney is unremarkable. IMPRESSION: 1. No definite cholelithiasis or sonographic evidence of acute cholecystitis. 2. No biliary ductal dilation. The above report was generated using voice recognition software. It may contain grammatical, syntax or spelling errors. Electronically signed by: Javy Cronin M.D. 01/09/2018 7:09 AM Dictated Date/Time: 01/09/2018 7:05 AM
[2018-01-09 07:27] VITALS: BP 102/63; PULSE 74; TEMP 37.1; O2SAT 93
[2018-01-09] MEDS: AMIODARONE 200 MG TAB PO SCH (08:39)
--- NOTE | 2018-01-09 08:48 | HISTORY & PHYSICAL EXAMINATION ---
DATE OF ADMISSION: 01/08/2018 IM ATTENDING : Patient seen and examined. History obtained from patient and records. Preceding documentation by Ms. Herminia Garay PA-C, reviewed. In addition, urinary retention noted in the ER. Perineal catheterization through congenital defect to decompress the bladder done by ER provider. FINAL ASSESSMENT AND PLAN as follows: 1. Severe sepsis SIRS plus lactic acid elevation secondary to complicated urinary tract infection hx hypospadias sp childhood surgery, 2. Transaminitis. Possible differentials : tylenol toxicity amiodarone toxicity statin therapy. Sepsis possibly contributory to abnormal LFTs 3. Paroxysmal atrial flutter. on Coumadin. Patient NSR, INR therapeutic. 4. History of Ebstein anomaly status post surgery (ASD repair). 5. Hypokalemia secondary to illness 6. Hyperglycemia, rule out diabetes. 7. past tobacco abuse. GMF CS, IV Cefepime, Vancomycin for complicated UTI IV fluids, follow lactic acid Urology consult RE urinary retention. Follow LFTs. Complete Acetadote protocol as per Poison control recommendations. Liver ultrasound. Hold statin for now. May need GI consult if progression of LFTs. May need touch base with [facility] if LFT abnormalities persist w/ Amiodarone Rx. Replace K check hemoglobin A1c. DVT prophylaxis, Coumadin, INR 2-3. FULL CODE. MTDD
--- NOTE | 2018-01-09 08:51 | Pharmacy Progress Note ---
Pharmacy Abx Initial Consult Date of Service January 09, 2018. Pharmacy Dosing Scope Date of Consult: 01/09/18 Consultation requested by: Dr. Melissa Pharmacy is consulted to initiate Vancomycin + Cefepime IV dosing therapy, order appropriate labs and adjust drug dose/frequency. Subjective The patient is a 52 year old male admitted on January 08, 2018 at 23:22. Objective Height (Feet): 6 Height (Inches): 0.00 Weight (Kilograms): 87.700 Vital Signs (Past 12Hrs) Vital Signs Past 12 Hours Date Time Temp Pulse Resp B/P (MAP) Pulse Ox O2 Delivery O2 Flow Rate FiO2 01/09/18 07:27 37.1 74 18 102/63 (76) 93 Room Air 01/09/18 00:41 37.7 80 16 121/69 96 Room Air 01/09/18 00:02 37.8 81 19 122/62 94 01/09/18 00:00 Room Air 01/08/18 23:04 37.9 83 14 122/92 94 Room Air 01/08/18 21:07 78 01/08/18 21:00 78 17 118/90 94 Room Air Lab Results (24Hrs) Laboratory Tests (24 Hours) Test 01/08/18 17:56 01/08/18 20:13 01/09/18 00:23 01/09/18 05:32 Total Creatine Kinase 133 U/L (39-308) Procalcitonin 0.14 ng/ml (0-0.5) White Blood Count 12.45 K/uL (4.8-10.8) H Red Blood Count 4.56 M/uL (4.7-6.1) L Hemoglobin 14.1 g/dL (14.0-18.0) Hematocrit 39.9 % (42-52) L Mean Corpuscular Volume 87.5 fL (80-100) Mean Corpuscular Hemoglobin 30.9 pg (25-34) Mean Corpuscular Hemoglobin Concent 35.3 g/dl (32-36) Platelet Count 183 K/uL (130-400) Mean Platelet Volume 9.6 fL (7.4-10.4) Neutrophils (%) (Auto) 93.3 % Lymphocytes (%) (Auto) 3.3 % Monocytes (%) (Auto) 2.8 % Eosinophils (%) (Auto) 0.0 % Basophils (%) (Auto) 0.1 % Neutrophils # (Auto) 11.62 K/uL (1.4-6.5) H Lymphocytes # (Auto) 0.41 K/uL (1.2-3.4) L Monocytes # (Auto) 0.35 K/uL (0.11-0.59) Eosinophils # (Auto) 0.00 K/uL (0-0.5) Basophils # (Auto) 0.01 K/uL (0-0.2) Lactic Acid Level 2.6 mmol/L (0.4-2.0) *H Micro Results Date/Time Source Procedure Growth Status 01/08/18 21:42 Blood Blood Culture Pending Received 01/08/18 20:40 Blood Blood Culture Pending Received 01/08/18 20:20 Urine , Clean Catch Urine Culture Pending Received Assessment & Plan Assessment 52 year old male initiated on IV Vancomycin + Cefepime for sepsis secondary to complicated UTI. Plan Vancomycin IV * Loading dose: 2,250 mg (25 mg/kg) * Maintenance dose: 1,350 mg IV (15 mg/kg) every 10 hours * Goal trough level for UTI/Sepsis : 15 to 20 mcg/mL * Trough level ordered for 01/11/18 @ 010 Cefepime * 2,000 mg IV Q12hrs for complicated UTI/Sepsis and CrCl >60 ml/min Pharmacy will continue to follow and will adjust dose/frequency as necessary. Thank you.
[2018-01-09] MEDS: NSS + 20MEQ KCL 1000ML 1,000 ML IV SCH ×2 (10:37→13:30)
[2018-01-09] MEDS: MAGNESIUM SULFATE 1GM / D5W 100 ML IV SCH ×2 (12:27→13:43)
[2018-01-09] MEDS: CEFEPIME IV 2,000 MG in SYRINGE 7.5 ML IV SCH ×2 (12:27→23:15)
--- NOTE | 2018-01-09 14:07 | Urology Consultation ---
History General Date of Service: January 09, 2018. Primary Care Physician: Lion Weber M.D. Pt seen a urologist before?: Yes If yes, why?: congenital hypospadias History of Present Illness 52-year-old gentleman with a history of congenital hypospadias repaired as an infant, but subsequent failure of his repair with fistulization to the peroneal location (this was the initial location of his urethra) -Presented to the emergency room with general ill feeling as well as diarrheal illness and fatigue -Elevated LFTs on arrival; elevated lactate -Afebrile on arrival, however he was tachycardic to 120 with a leukocytosis of 13,000 -UA on arrival showed bacteria as well as budding yeast -Pulmonary culture results showing E. coli - -leading to high suspicion that urinary infection was the origin of his SIRS presentation -On evaluation today, he reports he feels considerably better than he did upon arrival at the ER, but is still complaining of lower abdominal pain and a feeling of bladder pressure - Had a straight catheterization in the emergency room, primary team is attempted catheterization since that time unsuccessfully -PVRs have been low per patient CT: No hydronephrosis, no kidney stones, no bladder distention or bladder masses Small renal cyst in the left kidney (bladder entirely decompressed on CT) Laboratory Labs were reviewed and are within normal limits unless listed below. Labs are available in the chart and at [facility] Problem List Medical Problems: (1) Dehydration Status: Acute (2) Elevated LFTs Status: Acute Past History A Fib, other (Ebstein abnormality; hypospadias; atrial septal defect; hypokalemia) Past Surgical History: other (Hypospadias repair; ASD closure) Family History FH: breast cancer Noncontributory in the acute setting Social History Smoking: quit greater than 1 year Marital status: Housing status: lives with significant other Occupation status: employed History of MDRO No Allergies Coded Allergies: No Known Allergies (Verified , 06/16/05) Medications Home Medications: Home Meds and Scripts Medications Dose Route/Sig Max Daily Dose Days Date Category Dose Instructions Lipitor (Atorvastatin Calcium) 40 Mg Tab 1 Tab PO DAILY 01/08/18 Reported Jantoven (Warfarin Sodium) 2.5 Mg Tab 1.25 Mg PO 2XWK 01/08/18 Reported monday and monday Jantoven (Warfarin Sodium) 2.5 Mg Tab 2.5 Mg PO 5XWK 01/08/18 Reported monday, monday, monday, , monday Amiodarone HCl 200 Mg Tab 200 Mg PO DAILY 01/08/18 Reported Inpatient Medications: Current Inpatient Medications Medications (Trade) Dose Ordered Sig/Vladimir Route Start Time Stop Time Status Last Admin Dose Admin Acetylcysteine 8760 mg/Dextrose 1,043.8 ml @ 62.5 mls/ hr 0200 IV 01/09/18 02:00 01/09/18 18:43 01/09/18 02:42 62.5 MLS/HR Cefepime HCl (Consult) 1 ea UD PRN N/A 01/09/18 00:45 02/08/18 00:44 Prochlorperazine Edisylate 5 mg/ Syringe 5 ml @ 5 mls/min Q6H PRN IV 01/09/18 00:15 02/08/18 00:14 Tramadol HCl (Ultram Tab) not relieved by tylenol @ Q6H PRN PO 01/09/18 00:15 02/08/18 00:14 01/09/18 08:44 50 MG Lorazepam (Ativan Inj) 0.5 mg Q4H PRN IV 01/09/18 00:15 02/08/18 00:14 Morphine Sulfate (MoRPHine SULFATE INJ) 4 mg Q3H PRN IV 01/09/18 00:15 01/23/18 00:14 01/09/18 02:00 4 MG Docusate Sodium (coLACE CAP) 100 mg DAILY PO 01/10/18 08:00 02/09/18 07:59 Polyethylene (Miralax Powder Packet) 17 gm DAILY PRN PO 01/09/18 02:00 02/08/18 01:59 Cefepime HCl 2000 mg/Syringe 20 ml @ 5 mls/min Q12H IV 01/09/18 12:00 01/19/18 11:59 01/09/18 12:27 5 MLS/MIN Amiodarone HCl (Cordarone Tab) 200 mg DAILY PO 01/09/18 08:00 02/08/18 07:59 01/09/18 08:39 200 MG Miscellaneous Information (Consult) 1 ea UD PRN N/A 01/09/18 06:30 02/08/18 06:29 Potassium Chloride/Sodium Chloride 1,000 ml @ 200 mls/hr Q5H IV 01/09/18 08:30 01/09/18 14:29 01/09/18 10:37 200 MLS/HR Vancomycin HCl 1250 mg/Sodium Chloride 275 ml @ 125 mls/hr Q10H IV 01/09/18 19:00 01/19/18 18:59 Phenazopyridine HCl (Pyridium Tab) 100 mg TID PO 01/09/18 14:00 02/08/18 13:59 Sodium Chloride 1,000 ml @ 125 mls/hr Q8H IV 01/09/18 14:00 01/10/18 05:59 Review of Systems Review of Systems Constitutional: No see HPI, No fever, No chills, No frequent headaches, No weight loss, No problem reported Eyes: No see HPI, No blurred vision, No double vision, No eye pain, No loss of night vision, No problem reported Neurological: No see HPI, No dizzy, No passing out, No numbness/tingling, No seizures, No problem reported Endocrine: No see HPI, No excessive thirst, No too hot, No too cold, No tired/ sluggish, No problem reported Gastrointestinal: + abdominal pain, + nausea, + diarrhea Cardiovascular: No see HPI, No heart murmur, No chest pain, No angina, No irregular heartbeat, No palpitations, No swelling ankles/feet, No problem reported Respiratory: No see HPI, No shortness of breath, No wheezing, No coughing up blood, No chronic cough, No problem reported Skin: No see HPI, No rash, No boils, No dry skin, No problem reported Musculoskeletal: No see HPI, No joint pain, No neck pain, No back pain, No arthritis, No problem reported Blood / Lymphatic: No see HPI, No bleed easily, No bruise easily, No swollen glands, No problem reported Ears / Nose / Throat: No see HPI, No hearing loss, No sinus, No hoarse voice, No sore throat, No problem reported Psychologic / Mental: No see HPI, No nervous, No trouble remembering, No difficulty sleeping, No problem reported Male : + problem reported (No change from his baseline voiding pattern, aside from bladder pressure -reports that he voids with a stream that partially empties through perineal opening as well as a portion entering through a penoscrotal opening) Physical Exam Vital Signs: Vital Signs Past 12 Hours Date Time Temp Pulse Resp B/P (MAP) Pulse Ox O2 Delivery O2 Flow Rate FiO2 01/09/18 08:00 Room Air 01/09/18 07:27 37.1 74 18 102/63 (76) 93 Room Air Physical Exam: General Appearance: no apparent distress Eyes: bilateral eyes normal inspection ENT: hearing grossly normal Neck: no adenopathy Respiratory/Chest: no respiratory distress, no accessory muscle use Cardiovascular: no edema Gastrointestinal: Abdomen: normal abdomen Bladder: normal bladder (Patient reports tenderness and pressure in this area, however his bladder does not feel palpably distended) Genitourinary - Male: Penis: pertinent finding (Perineal urethral opening(patient reports this is the location of his [place] urethra); additionally has a penoscrotal urethral opening, he reports that this was the opening created in his hypospadias repair/ attempt as a child) Testes: normal testes Extremities: no pedal edema, no calf tenderness Neurologic/Psychiatric: alert, normal mood/affect, oriented x 3 Skin: normal color, warm/dry Lymphatic: no adenopathy Assessment & Plan Assessment & Plan Hypospadias; urinary tract infection #1 hypospadias Voids adequately, no evidence of hydronephrosis, no bladder distention Given the numerous attempts for catheter placement, I did place a 16 Turkish catheter through his peroneal urethral meatus -To place the catheter, gently dilated the urethra with a hemostat prior to easy placement of a 16 Turkish straight Rivas catheter -There was return of approximately 300 cc of clear, yellow urine -no gross purulence -Recommend leaving the Rivas catheter only as long as the primary team feels necessary #2 UTI Continue coverage with broad-spectrum antibiotics Preliminary culture results show E. coli, however his initial UA did show budding yeast If he fails to improve in the near future, I would likely repeat a urinalysis to rule out persistent presence of yeast -if there is still present yeast, I would consider additionally treating him with Diflucan or another appropriate antifungal
[2018-01-09] MEDS: SODIUM CHLORIDE 0.9% 1000ML 1,000 ML IV SCH ×2 (14:08→23:15)
[2018-01-09] MEDS: PHENAZOPYRIDINE HCL 100 MG TAB PO SCH ×2 (14:20→19:16)
[2018-01-09 15:24] LABS: INR 2.7 (0.9-1.1)
[2018-01-09 15:37] LABS: ALBUMIN 2.4 gm/dl (3.4-5.0); TOTAL PROTEIN 5.7 gm/dl (6.4-8.2)
[2018-01-09 15:49] VITALS: BP 125/80; PULSE 84; TEMP 37.2; O2SAT 91
--- NOTE | 2018-01-09 17:04 | Progress Note ---
Medicine Progress Note Date & Time of Visit: January 09, 2018 at 1400. Subjective 52-year-old male presents with 1 week of low back pain, chills, body aches, headaches along with increased urinary burning and frequency. Patient states that he has had an intermittent cough off and on and is also sick with chills and body aches. The patient reports taking 5-6 doses of regular Tylenol in addition to about 12 Coricidin cold and flu with acetaminophen in them this was over. Of several days and it was reportedly taken per the instructions on the [id number] box. He came in and was found to have sepsis secondary to likely UTI. 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 He also has hypospadia with 2 urethral openings. In the ER he was straight cathed for urinary retention but no Rivas was placed. This morning he reports increased abdominal fullness and urology was called to bedside to Place Rivas. 2 hours later he still reported abdominal fullness without pain, denied low back pain and was tolerating some p.o. he denied any nausea and reported an improvement in his cough. He was placed on N-acetylcysteine therapy per overnight provider and is still on maintenance infusion. I corresponded with nurse and [facility] Control [facility] in [place] for appropriate upcoming labs and status of the patient. Objective Last 8 Hrs Date Time Temp Pulse Resp B/P (MAP) Pulse Ox O2 Delivery O2 Flow Rate FiO2 01/09/18 15:49 37.2 84 17 125/80 (95) 91 Room Air Physical Exam: GEN: WNWD, in no acute distress, alert and appropriate HEENT: NC/AT, PERRL, normal sclerae CARDIO: reg rate, S1/2 heard without m/g/r LUNGS: CTA bilaterally, no crackles, rales or wheezes, good diaphragmatic excursion ABD: soft, some mild discomfort in suprapubic area only, non-distended, no rebound or guarding, +BS EXTREMITY: RP and DP palpable 2+ bilat, no LE swelling or edema, extremities are warm and well-perfused NEURO: CN 2-12 grossly intact, sensation intact throughout MUSC: 5/5 strength throughout, no gross focal deficits SKIN: warm and dry Laboratory Results: 01/09/18 00:23 Red Blood Count 4.56, Mean Corpuscular Volume 87.5, Mean Corpuscular Hemoglobin 30.9, Mean Corpuscular Hemoglobin Concent 35.3, Mean Platelet Volume 9.6, Neutrophils (%) (Auto) 93.3, Lymphocytes (%) (Auto) 3.3, Monocytes (%) (Auto) 2.8, Eosinophils (%) (Auto) 0.0, Basophils (%) (Auto) 0.1, Neutrophils # (Auto) 11.62, Lymphocytes # (Auto) 0.41, Monocytes # (Auto) 0.35, Eosinophils # (Auto) 0.00, Basophils # (Auto) 0.01 01/09/18 05:32 Test 01/08/18 17:56 01/08/18 20:13 01/08/18 20:20 01/09/18 00:23 Activated Partial Thromboplast Time 38.7 SECONDS (21.0-31.0) Partial Thromboplastin Ratio 1.5 Total Creatine Kinase 133 U/L (39-308) Creatine Kinase MB 0.9 ng/ml (0.5-3.6) Creatine Kinase MB Ratio 0.7 (0-3.0) Lipase 88 U/L (73-393) Thyroid Stimulating Hormone (TSH) 2.240 uIu/ml (0.300-4.500) Troponin I < 0.015 ng/ml (0-0.045) Procalcitonin 0.14 ng/ml (0-0.5) Hepatitis C Antibody NEG (NEG) Urine Color YELLOW Urine Appearance CLOUDY (CLEAR) Urine pH 6.0 (4.5-7.5) Urine Specific Lesage 1.019 (1.000-1.030) Urine Protein 1+ (NEG) Urine Glucose (UA) NEG (NEG) Urine Ketones TRACE (NEG) Urine Occult Blood 2+ (NEG) Urine Nitrite POS (NEG) Urine Bilirubin NEG (NEG) Urine Urobilinogen NEG (NEG) Urine Leukocyte Esterase LARGE (NEG) Urine WBC (Auto) >30 /hpf (0-5) Urine RBC (Auto) 5-10 /hpf (0-4) Urine Hyaline Casts (Auto) 1-5 /lpf (0-5) Urine Epithelial Cells (Auto) 0-5 /lpf (0-5) Urine Bacteria (Auto) 4+ (NEG) Urine Yeast (Auto) BUDDING (NONE PRSENT) White Blood Count 12.45 K/uL (4.8-10.8) Red Blood Count 4.56 M/uL (4.7-6.1) Hemoglobin 14.1 g/dL (14.0-18.0) Hematocrit 39.9 % (42-52) Mean Corpuscular Volume 87.5 fL (80-100) Mean Corpuscular Hemoglobin 30.9 pg (25-34) Mean Corpuscular Hemoglobin Concent 35.3 g/dl (32-36) Platelet Count 183 K/uL (130-400) Mean Platelet Volume 9.6 fL (7.4-10.4) Neutrophils (%) (Auto) 93.3 % Lymphocytes (%) (Auto) 3.3 % Monocytes (%) (Auto) 2.8 % Eosinophils (%) (Auto) 0.0 % Basophils (%) (Auto) 0.1 % Neutrophils # (Auto) 11.62 K/uL (1.4-6.5) Lymphocytes # (Auto) 0.41 K/uL (1.2-3.4) Monocytes # (Auto) 0.35 K/uL (0.11-0.59) Eosinophils # (Auto) 0.00 K/uL (0-0.5) Basophils # (Auto) 0.01 K/uL (0-0.2) RDW Standard Deviation 42.1 fL (36.4-46.3) RDW Coefficient of Variation 13.1 % (11.5-14.5) Immature Granulocyte % (Auto) 0.5 % Immature Granulocyte # (Auto) 0.06 K/uL (0.00-0.02) Acetaminophen Level 4 ug/ml (10-30) Test 01/09/18 04:52 01/09/18 05:32 01/09/18 12:27 01/09/18 15:06 Urine Opiates Screen POS (NEG) Urine Methadone, Qualitative NEG (NEG) Urine Barbiturates NEG (NEG) Urine Phencyclidine (PCP) Level NEG (NEG) Ur Amphetamine/Methamphetamine NEG (NEG) MDMA (Ecstasy) Screen NEG (NEG) Urine Benzodiazepines Screen NEG (NEG) Urine Cocaine Metabolite NEG (NEG) Urine Marijuana (THC) NEG (NEG) Anion Gap 10.0 mmol/L (3-11) Est Creatinine Clear Calc Drug Dose 98.7 ml/min Estimated GFR () 105.5 Estimated GFR (Non- 91.0 BUN/Creatinine Ratio 8.8 (10-20) Estimated Average Glucose 120 mg/dl Hemoglobin A1c 5.8 % (4.5-5.6) Calcium Level 7.7 mg/dl (8.5-10.1) Magnesium Level 1.7 mg/dl (1.8-2.4) Globulin 3.1 gm/dl (2.5-4.0) Albumin/Globulin Ratio 0.8 (0.9-2) Lactic Acid Level 2.3 mmol/L (0.4-2.0) Prothrombin Time 28.1 SECONDS (9.0-12.0) Prothromb Time International Ratio 2.7 (0.9-1.1) Total Bilirubin 0.6 mg/dl (0.2-1) Direct Bilirubin 0.3 mg/dl (0-0.2) Aspartate Amino Transf (AST/SGOT) 58 U/L (15-37) Alanine Aminotransferase (ALT/SGPT) 131 U/L (12-78) Alkaline Phosphatase 60 U/L (45-117) Total Protein 5.7 gm/dl (6.4-8.2) Albumin 2.4 gm/dl (3.4-5.0) Date/Time Source Procedure Growth Status 01/08/18 21:42 Blood Blood Culture Pending Received 01/08/18 20:20 Urine , Clean Catch Urine Culture - Preliminary Escherichia Coli Resulted Last 24 Hours Test 01/08/18 17:56 01/08/18 20:13 01/08/18 20:20 01/08/18 21:42 White Blood Count 13.69 K/uL Red Blood Count 5.03 M/uL Hemoglobin 15.6 g/dL Hematocrit 43.6 % Mean Corpuscular Volume 86.7 fL Mean Corpuscular Hemoglobin 31.0 pg Mean Corpuscular Hemoglobin Concent 35.8 g/dl Platelet Count 211 K/uL Mean Platelet Volume 9.5 fL Neutrophils (%) (Auto) 87.7 % Lymphocytes (%) (Auto) 6.0 % Monocytes (%) (Auto) 5.8 % Eosinophils (%) (Auto) 0.0 % Basophils (%) (Auto) 0.1 % Neutrophils # (Auto) 12.01 K/uL Lymphocytes # (Auto) 0.82 K/uL Monocytes # (Auto) 0.80 K/uL Eosinophils # (Auto) 0.00 K/uL Basophils # (Auto) 0.01 K/uL RDW Standard Deviation 41.7 fL RDW Coefficient of Variation 13.1 % Immature Granulocyte % (Auto) 0.4 % Immature Granulocyte # (Auto) 0.05 K/uL Prothrombin Time 25.8 SECONDS Prothromb Time International Ratio 2.5 Activated Partial Thromboplast Time 38.7 SECONDS Partial Thromboplastin Ratio 1.5 Sodium Level 137 mmol/L Potassium Level 3.0 mmol/L Chloride Level 102 mmol/L Carbon Dioxide Level 26 mmol/L Anion Gap 9.0 mmol/L Blood Urea Nitrogen 10 mg/dl Creatinine 1.28 mg/dl Est Creatinine Clear Calc Drug Dose 77.6 ml/min Estimated GFR () 73.6 Estimated GFR (Non- 63.5 BUN/Creatinine Ratio 7.6 Random Glucose 135 mg/dl Calcium Level 7.9 mg/dl Magnesium Level 1.6 mg/dl Total Bilirubin 1.2 mg/dl Direct Bilirubin 0.2 mg/dl Aspartate Amino Transf (AST/SGOT) 119 U/L Alanine Aminotransferase (ALT/SGPT) 209 U/L Alkaline Phosphatase 87 U/L Total Creatine Kinase 133 U/L Creatine Kinase MB 0.9 ng/ml Creatine Kinase MB Ratio 0.7 Troponin I < 0.015 ng/ml < 0.015 ng/ml Total Protein 7.4 gm/dl Albumin 3.6 gm/dl Lipase 88 U/L Thyroid Stimulating Hormone (TSH) 2.240 uIu/ml Procalcitonin 0.14 ng/ml Acetaminophen Level 3 ug/ml Hepatitis C Antibody NEG Urine Color YELLOW Urine Appearance CLOUDY Urine pH 6.0 Urine Specific Lesage 1.019 Urine Protein 1+ Urine Glucose (UA) NEG Urine Ketones TRACE Urine Occult Blood 2+ Urine Nitrite POS Urine Bilirubin NEG Urine Urobilinogen NEG Urine Leukocyte Esterase LARGE Urine WBC (Auto) >30 /hpf Urine RBC (Auto) 5-10 /hpf Urine Hyaline Casts (Auto) 1-5 /lpf Urine Epithelial Cells (Auto) 0-5 /lpf Urine Bacteria (Auto) 4+ Urine Yeast (Auto) BUDDING Lactic Acid Level 2.6 mmol/L Test 01/09/18 00:23 01/09/18 04:52 01/09/18 05:32 5/8/18 12:27 White Blood Count 12.45 K/uL Red Blood Count 4.56 M/uL Hemoglobin 14.1 g/dL Hematocrit 39.9 % Mean Corpuscular Volume 87.5 fL Mean Corpuscular Hemoglobin 30.9 pg Mean Corpuscular Hemoglobin Concent 35.3 g/dl Platelet Count 183 K/uL Mean Platelet Volume 9.6 fL Neutrophils (%) (Auto) 93.3 % Lymphocytes (%) (Auto) 3.3 % Monocytes (%) (Auto) 2.8 % Eosinophils (%) (Auto) 0.0 % Basophils (%) (Auto) 0.1 % Neutrophils # (Auto) 11.62 K/uL Lymphocytes # (Auto) 0.41 K/uL Monocytes # (Auto) 0.35 K/uL Eosinophils # (Auto) 0.00 K/uL Basophils # (Auto) 0.01 K/uL RDW Standard Deviation 42.1 fL RDW Coefficient of Variation 13.1 % Immature Granulocyte % (Auto) 0.5 % Immature Granulocyte # (Auto) 0.06 K/uL Prothrombin Time 25.0 SECONDS Prothromb Time International Ratio 2.4 Sodium Level 140 mmol/L 136 mmol/L Potassium Level 3.2 mmol/L 3.3 mmol/L Chloride Level 104 mmol/L 103 mmol/L Carbon Dioxide Level 22 mmol/L 24 mmol/L Anion Gap 14.0 mmol/L 10.0 mmol/L Blood Urea Nitrogen 8 mg/dl 8 mg/dl Creatinine 0.97 mg/dl 0.95 mg/dl Est Creatinine Clear Calc Drug Dose 102.4 ml/min 98.7 ml/min Estimated GFR () 102.9 105.5 Estimated GFR (Non- 88.8 91.0 BUN/Creatinine Ratio 8.5 8.8 Random Glucose 155 mg/dl 129 mg/dl Lactic Acid Level 2.5 mmol/L 2.6 mmol/L 2.3 mmol/L Calcium Level 6.9 mg/dl 7.7 mg/dl Magnesium Level 1.6 mg/dl 1.7 mg/dl Total Bilirubin 0.7 mg/dl 0.8 mg/dl Aspartate Amino Transf (AST/SGOT) 70 U/L 65 U/L Alanine Aminotransferase (ALT/SGPT) 157 U/L 143 U/L Alkaline Phosphatase 61 U/L 57 U/L Total Protein 5.8 gm/dl 5.5 gm/dl Albumin 2.5 gm/dl 2.4 gm/dl Globulin 3.3 gm/dl 3.1 gm/dl Albumin/Globulin Ratio 0.8 0.8 Acetaminophen Level 4 ug/ml Urine Opiates Screen POS Urine Methadone, Qualitative NEG Urine Barbiturates NEG Urine Phencyclidine (PCP) Level NEG Ur Amphetamine/Methamphetamine NEG MDMA (Ecstasy) Screen NEG Urine Benzodiazepines Screen NEG Urine Cocaine Metabolite NEG Urine Marijuana (THC) NEG Estimated Average Glucose 120 mg/dl Hemoglobin A1c 5.8 % Test 01/09/18 15:06 Prothrombin Time 28.1 SECONDS Prothromb Time International Ratio 2.7 Total Bilirubin 0.6 mg/dl Direct Bilirubin 0.3 mg/dl Aspartate Amino Transf (AST/SGOT) 58 U/L Alanine Aminotransferase (ALT/SGPT) 131 U/L Alkaline Phosphatase 60 U/L Total Protein 5.7 gm/dl Albumin 2.4 gm/dl Date/Time Source Procedure Growth Status 01/08/18 21:42 Blood Blood Culture Pending Received 01/08/18 20:40 Blood Blood Culture Pending Received 01/08/18 20:20 Urine , Clean Catch Urine Culture - Preliminary Escherichia Coli Resulted Assessment & Plan 52-year-old male presents with 1 week of low back pain, chills, body aches, headaches along with increased urinary burning and frequency. Patient states that he has had an intermittent cough off and on and is also sick with chills and body aches. The patient reports taking 5-6 doses of regular Tylenol in addition to about 12 Coricidin cold and flu with acetaminophen in them this was over. Of several days and it was reportedly taken per the instructions on the [id number] box. He came in and was found to have sepsis secondary to likely UTI. 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 He also has hypospadia with 2 urethral openings. In the ER he was straight cathed for urinary retention but no Rivas was placed. This morning he reports increased abdominal fullness and urology was called to bedside to Place Rivas. 2 hours later he still reported abdominal fullness without pain, denied low back pain and was tolerating some p.o. he denied any nausea and reported an improvement in his cough. He was placed on N-acetylcysteine therapy per overnight provider and is still on maintenance infusion. I corresponded with nurse and [facility] Control Center in [place] for appropriate upcoming labs and status of the patient. 1. Sepsis secondary to UTI-abdominal fullness is still present, suspect urinary retention causing abdominal discomfort. Rivas was just placed so will give this time to decompress the bladder. Will add Pyridium for discomfort. Also trending lactate in a few hours-suspect increased lactate secondary to sepsis as opposed to mesenteric ischemia or other cause of abdominal pain. Exam is consistent with suprapubic discomfort only and patient is not reliably tolerating p.o this point.. Continue IV fluids until reliably tolerating p.o. Will continue cefepime and vancomycin pending urine and blood culture results. Will plan to continue Rivas catheter until 48 hours after antibiotic therapy and patient is feeling better. At that time will consider trial of void. Appreciate urology involvement. 2. AK I-etiologies include but not limited to dehydration causing prerenal azotemia versus postobstructive urinary retention secondary to infection. Rivas has been placed and IV fluids given overnight. Will continue IV fluids at this time. Appears on morning and labs that AK I has now resolved. 3. Hypokalemia replaced-will check potassium and magnesium in the a.m. 4. Hypomagnesemia-replaced will check potassium and magnesium in the a.m. 5. Tylenol overuse-initial Tylenol level was low at 4. Poison control was contacted and overnight providers recommended N-acetylcysteine therapy which is currently infusing. Continue per poison control recommendations. 6. Atrial flutter-on Coumadin. INR is currently therapeutic, hold coumadin therapy in setting of treatment for potential tylenol toxicity, INR daily, continue amiodarone. 7. URI-patient reports intermittent cough that is nonproductive, will obtain chest x-ray DVT prophylaxis-Coumadin Full code Disposition-plan for home when medically stable DO [facility] Consultants: Dr. Ramu López-Urology Current Inpatient Medications: Current Inpatient Medications Medications (Trade) Dose Ordered Sig/Vladimir Route Start Time Stop Time Status Last Admin Dose Admin Acetylcysteine 8760 mg/Dextrose 1,043.8 ml @ 62.5 mls/ hr 0200 IV 01/09/18 02:00 01/09/18 18:43 01/09/18 02:42 62.5 MLS/HR Cefepime HCl (Consult) 1 ea PRN N/A 01/09/18 00:45 02/08/18 00:44 Prochlorperazine Edisylate 5 mg/ Syringe 5 ml @ 5 mls/min Q6H PRN IV 01/09/18 00:15 02/08/18 00:14 Tramadol HCl (Ultram Tab) not relieved by tylenol @ Q6H PRN PO 01/09/18 00:15 02/08/18 00:14 01/09/18 08:44 50 MG Lorazepam (Ativan Inj) 0.5 mg Q4H PRN IV 01/09/18 00:15 02/08/18 00:14 Morphine Sulfate (MoRPHine SULFATE INJ) 4 mg Q3H PRN IV 01/09/18 00:15 01/23/18 00:14 01/09/18 02:00 4 MG Docusate Sodium (coLACE CAP) 100 mg DAILY PO 01/10/18 08:00 02/09/18 07:59 Polyethylene (Miralax Powder Packet) 17 gm DAILY PRN PO 01/09/18 02:00 02/08/18 01:59 Cefepime HCl 2000 mg/Syringe 20 ml @ 5 mls/min Q12H IV 01/09/18 12:00 01/19/18 11:59 01/09/18 12:27 5 MLS/MIN Amiodarone HCl (Cordarone Tab) 200 mg DAILY PO 01/09/18 08:00 02/08/18 07:59 01/09/18 08:39 200 MG Miscellaneous Information (Consult) 1 ea PRN N/A 01/09/18 06:30 02/08/18 06:29 Vancomycin HCl 1250 mg/Sodium Chloride 275 ml @ 125 mls/hr Q10H IV 01/09/18 19:00 01/19/18 18:59 Phenazopyridine HCl (Pyridium Tab) 100 mg TID PO 01/09/18 14:00 02/08/18 13:59 01/09/18 14:20 100 MG Sodium Chloride 1,000 ml @ 125 mls/hr Q8H IV 01/09/18 14:00 01/10/18 05:59 01/09/18 14:08 125 MLS/HR
[2018-01-09] MEDS ORDERED: ACETYLCYSTEINE IV 21 HOUR REGIMEN IV STA (17:14)
--- NOTE | 2018-01-09 17:18 | DIAGNOSTIC IMAGING REPORT ---
CHEST ONE VIEW PORTABLE CLINICAL HISTORY: Sepsis COMPARISON STUDY: No previous studies for comparison. FINDINGS: The heart is enlarged. There are postsurgical changes of a midline sternotomy. There is no overt failure. There is no focal pulmonary consolidation. No pleural effusions are visualized. Slight indistinctness of the left hemidiaphragm is likely secondary to left basilar atelectatic change[ IMPRESSION: 1. Cardiomegaly 2. No evidence of focal pulmonary consolidation Electronically signed by: Dimitrios Oglesby M.D. 01/09/2018 5:17 PM Dictated Date/Time: 01/09/2018 5:16 PM
[2018-01-09] MEDS ORDERED: SODIUM CHLORIDE 0.9% IV SCH (19:00)
[2018-01-09] MEDS ORDERED: VANCOMYCIN IV SCH (19:00)
[2018-01-09] MEDS: VANCOMYCIN IV 1,250 MG in SODIUM CHLORIDE 0.9% 250ML 250 ML IV SCH (19:16)
[2018-01-09] MEDS ORDERED: CEFTRIAXONE SOD INJ 1 GM in DEXTROSE 5% ADD-VANTAGE 50ML 50 ML IV SCH (22:00)
[2018-01-09 23:21] VITALS: BP 106/68; PULSE 86; TEMP 37.3; O2SAT 93
[2018-01-10] MEDS: VANCOMYCIN IV 1,250 MG in SODIUM CHLORIDE 0.9% 250ML 250 ML IV SCH (04:19)
[2018-01-10] MEDS: MoRPHine SULFATE 4 MG/ML 1 ML CARP\\VIAL IV PRN (04:19)
[2018-01-10 05:53] LABS: HEPATITIS A IGM TC 51813E NON-REACTIVE (NON-REACTIVE); HEPATITIS B CORE IGM TC51854R NON-REACTIVE (NON-REACTIVE)
[2018-01-10 07:35] LABS: BASO % 0.1 %; BASO ABS # 0.01 K/uL (0-0.2); EOS % 0.1 %; EOS ABS # 0.01 K/uL (0-0.5); HEMATOCRIT 35.9 % (42-52); HEMOGLOBIN 12.5 g/dL (14.0-18.0); IG# 0.05 K/uL (0.00-0.02); LYMPH % 4.6 %; LYMPH ABS # 0.67 K/uL (1.2-3.4); MEAN CELL VOLUME 87.8 fL (80-100); MEAN CORPUSCULAR HEMOGLOBIN 30.6 pg (25-34); MEAN CORPUSCULAR HGB CONC 34.8 g/dl (32-36); MONO % 6.6 %; MONO ABS # 0.96 K/uL (0.11-0.59); NEUT % 88.3 %; NEUT ABS # 12.74 K/uL (1.4-6.5); PLATELET COUNT 163 K/uL (130-400); RED CELL DISTRIBUTION WIDTH CV 13.8 % (11.5-14.5); RED CELL DISTRIBUTION WIDTH SD 44.6 fL (36.4-46.3); WHITE BLOOD COUNT 14.44 K/uL (4.8-10.8)
[2018-01-10 07:43] LABS: INR 2.8 (0.9-1.1)
[2018-01-10 08:00] VITALS: BP 108/68; PULSE 90; TEMP 36.8; O2SAT 91; O2SAT 96
[2018-01-10 08:06] LABS: CALCIUM 7.8 mg/dl (8.5-10.1); CREATININE 0.67 mg/dl (0.60-1.40); POTASSIUM 3.9 mmol/L (3.5-5.1); TOTAL PROTEIN 5.3 gm/dl (6.4-8.2)
--- NOTE | 2018-01-10 08:48 | Progress Note ---
Subjective Date of Service: January 10, 2018. Subjective Pt evaluation today including: conversation w/ patient, physical exam, lab review Voiding: do catheter in place Doing well overall Much better today than yesterday, bladder pressure is been relieved entirely Good urine output No fevers, chills, rigors No dysuria, no hematuria Problem List Medical Problems: (1) Dehydration Status: Acute (2) Elevated LFTs Status: Acute Review of Systems Constitutional: No fever Abdomen: No pain Male : No dysuria Objective Vital Signs Date Time Temp Pulse Resp B/P (MAP) Pulse Ox O2 Delivery O2 Flow Rate FiO2 01/10/18 00:00 Room Air 01/09/18 23:21 37.3 86 18 106/68 (81) 93 Room Air 01/09/18 20:00 Room Air 01/09/18 16:00 Room Air 01/09/18 15:49 37.2 84 17 125/80 (95) 91 Room Air Physical Exam General Appearance: no apparent distress Eyes: normal inspection ENT: hearing grossly normal Cardiovascular: no edema Abdomen: non tender, soft Neurologic/Psychiatric: alert, normal mood/affect, oriented x 3 Laboratory Results Last 24 Hours Test 01/09/18 12:27 01/09/18 15:06 01/09/18 17:03 01/10/18 07:13 Lactic Acid Level 2.3 mmol/L 2.1 mmol/L Prothrombin Time 28.1 SECONDS 28.7 SECONDS Prothromb Time International Ratio 2.7 2.8 Total Bilirubin 0.6 mg/dl 0.6 mg/dl Direct Bilirubin 0.3 mg/dl Aspartate Amino Transf (AST/SGOT) 58 U/L 37 U/L Alanine Aminotransferase (ALT/SGPT) 131 U/L 96 U/L Alkaline Phosphatase 60 U/L 61 U/L Total Protein 5.7 gm/dl 5.3 gm/dl Albumin 2.4 gm/dl 2.0 gm/dl White Blood Count 14.44 K/uL Red Blood Count 4.09 M/uL Hemoglobin 12.5 g/dL Hematocrit 35.9 % Mean Corpuscular Volume 87.8 fL Mean Corpuscular Hemoglobin 30.6 pg Mean Corpuscular Hemoglobin Concent 34.8 g/dl Platelet Count 163 K/uL Mean Platelet Volume 10.0 fL Neutrophils (%) (Auto) 88.3 % Lymphocytes (%) (Auto) 4.6 % Monocytes (%) (Auto) 6.6 % Eosinophils (%) (Auto) 0.1 % Basophils (%) (Auto) 0.1 % Neutrophils # (Auto) 12.74 K/uL Lymphocytes # (Auto) 0.67 K/uL Monocytes # (Auto) 0.96 K/uL Eosinophils # (Auto) 0.01 K/uL Basophils # (Auto) 0.01 K/uL RDW Standard Deviation 44.6 fL RDW Coefficient of Variation 13.8 % Immature Granulocyte % (Auto) 0.3 % Immature Granulocyte # (Auto) 0.05 K/uL Sodium Level 138 mmol/L Potassium Level 3.9 mmol/L Chloride Level 107 mmol/L Carbon Dioxide Level 24 mmol/L Anion Gap 7.0 mmol/L Blood Urea Nitrogen 5 mg/dl Creatinine 0.67 mg/dl Est Creatinine Clear Calc Drug Dose 140.0 ml/min Estimated GFR () 127.1 Estimated GFR (Non- 109.7 BUN/Creatinine Ratio 8.1 Random Glucose 114 mg/dl Calcium Level 7.8 mg/dl Magnesium Level 2.1 mg/dl Globulin 3.3 gm/dl Albumin/Globulin Ratio 0.6 Assessment and Plan Urinary tract infection/urinary retention/congenital hypospadias Catheter placed through the perineal urethral meatus yesterday Good urine output overnight Subjectively significantly improved Continue antibiotics Potential voiding trial prior to discharge home
[2018-01-10] MEDS: AMIODARONE 200 MG TAB PO SCH (08:57)
[2018-01-10] MEDS: PHENAZOPYRIDINE HCL 100 MG TAB PO SCH ×3 (08:57→21:13)
[2018-01-10] MEDS: DOCUSATE SODIUM 100 MG CAP PO SCH (08:57)
--- NOTE | 2018-01-10 09:11 | Clinical Documentation Query ---
CHRISTINA Spencer : CLINICAL DOCUMENTATION QUERY Patient is a 52 year old male admitted for evaluation and treatment of UTI/abdominal pain. Documentation includes the following: "TYLENOL OVERUSE He reports using a box of Coricidin HBP last week (chlorpheniramine 4mg/acetaminophen 650mg per tab) thinks had 20 tabs in box). Patient states to not take any Tylenol products today may have taken 1 pill yesterday. Today acetaminophen level: 3. AST: 119 (41 on 09/2017). ALT: 209 (58 on 09/2017). Patient started on acetylcysteine in ER. -Monitor liver functions" As appropriate, consider documentation as suggested below. See below for additional information on "poisonings" versus "adverse events". Thanks. In your clinical opinion is this patient being managed for: ( ) Tylenol overdose/poisoning, accidental ( ) Not Agree (x ) Other explanation of clinical findings: possible Tylenol induced liver injury ( ) Unable to determine ( ) Need to Discuss (Please call CDS via extension or qliq. If no interaction occurs this is considered a no response.) Official Guidelines: Adverse Effects, Poisoning, Underdosing and Toxic Effects ICD-10-CM Official Guidelines for Coding and Reporting/Effective June 04, 2017 e. Adverse Effects, Poisoning, Underdosing and Toxic Effects Codes in categories T36-T65 are combination codes that include the substance that was taken as well as the intent. No additional external cause code is required for poisonings, toxic effects, adverse effects and underdosing codes. 1) Do not code directly from the Table of Drugs Do not code directly from the Table of Drugs and Chemicals. Always refer back to the Tabular List. 2) Use as many codes as necessary to describe Use as many codes as necessary to describe completely all drugs, medicinal or biological substances. 3) If the same code would describe the causative agent If the same code would describe the causative agent for more than one adverse reaction, poisoning, toxic effect or underdosing, assign the code only once. 4) If two or more drugs, medicinal or biological substances If two or more drugs, medicinal or biological substances are reported, code each individually unless a combination code is listed in the Table of Drugs and Chemicals. 5) The occurrence of drug toxicity is classified in ICD-10-CM as follows: (a) Adverse Effect When coding an adverse effect of a drug that has been correctly prescribed and properly administered, assign the appropriate code for the nature of the adverse effect followed by the appropriate code for the adverse effect of the drug (T36-T50). The code for the drug should have a 5th or 6th character "5" (for example T36.0X5-) Examples of the nature of an adverse effect are tachycardia, delirium, gastrointestinal hemorrhaging, vomiting, hypokalemia, hepatitis, renal failure, or respiratory failure. (b) Poisoning When coding a poisoning or reaction to the improper use of a medication (e.g., overdose, wrong substance given or taken in error, wrong route of administration), first assign the appropriate code from categories T36-T50. The poisoning codes have an associated intent as their 5th or 6th character (accidental, intentional self-harm, assault and undetermined. If the intent of the poisoning is unknown or unspecified, code the intent as accidental intent. The undetermined intent is only for use if the documentation in the record specifies that the intent cannot be determined. Use additional code(s) for all manifestations of poisonings. If there is also a diagnosis of abuse or dependence of the substance, the abuse or dependence is assigned as an additional code. Examples of poisoning include: i) Error was made in drug prescription Errors made in drug prescription or in the administration of the drug by provider, nurse, patient, or other person. ii) Overdose of a drug intentionally taken If an overdose of a drug was intentionally taken or administered and resulted in drug toxicity, it would be coded as a poisoning. (iii)Nonprescribed drug taken with correctly prescribed and properly administered drug If a nonprescribed drug or medicinal agent was taken in combination with a correctly prescribed and properly administered drug, any drug toxicity or other reaction resulting from the interaction of the two drugs would be classified as a poisoning. (iv)Interaction of drug(s) and alcohol When a reaction results from the interaction of a drug(s) and alcohol, this would be classified as poisoning. See Section I.C.4. if poisoning is the result of insulin pump malfunctions. Please clarify and document your clinical opinion in the progress notes and discharge summary. Terms such as "probable", "suspected", "likely", "questionable", "possible", or "still to be ruled out" are acceptable. IF IN AGREEMENT, YOU MUST DOCUMENT ABOVE DIAGNOSTIC STATEMENT IN DAILY PROGRESS NOTES AND DISCHARGE SUMMARY. This document is not part of the patient's record. Thank You, Jose R Stover, RN [phone]
[2018-01-10] MEDS: CEFUROXIME AXETIL 250 MG TAB PO SCH ×2 (14:40→21:13)
[2018-01-10 15:35] VITALS: BP 119/76; PULSE 93; TEMP 36.6; O2SAT 98
[2018-01-10] MEDS ORDERED: CIPROFLOXACIN 500 MG TAB PO SCH (20:00)
--- NOTE | 2018-01-10 22:25 | Progress Note ---
Medicine Progress Note Date & Time of Visit: January 10, 2018 at 17:38. Subjective 52-year-old male presents with 1 week of low back pain, chills, body aches, headaches along with increased urinary burning and frequency. Patient states that he has had an intermittent cough off and on and is also sick with chills and body aches. The patient reports taking 5-6 doses of regular Tylenol in addition to about 12 Coricidin cold and flu with acetaminophen in them this was over. Of several days and it was reportedly taken per the instructions on the [id number] box. He came in and was found to have sepsis secondary to likely UTI. 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 He also has hypospadia with 2 urethral openings. In the ER he was straight cathed for urinary retention but no Rivas was placed. Rivas was then placed by urologist Dr. López. He reports his abdominal pain has improved overnight and with addition of Pyridium. He still feels a sensation that he has to go to the bathroom but denies dysuria or other pain. He is somewhat tolerating solid foods but has a lack of appetite. He denies any fevers or chills overnight. Objective Last 8 Hrs Date Time Temp Pulse Resp B/P (MAP) Pulse Ox O2 Delivery O2 Flow Rate FiO2 01/10/18 16:00 Room Air 01/10/18 15:35 36.6 93 16 119/76 (90) 98 Room Air Physical Exam: GEN: WNWD, in no acute distress, alert and appropriate HEENT: NC/AT, PERRL, normal sclerae CARDIO: reg rate, S1/2 heard without m/g/r LUNGS: CTA bilaterally, no crackles, rales or wheezes, good diaphragmatic excursion ABD: soft, some mild discomfort in suprapubic area only but this is improved, non-distended, no rebound or guarding, +BS EXTREMITY: RP and DP palpable 2+ bilat, no LE swelling or edema, extremities are warm and well-perfused NEURO: CN 2-12 grossly intact, sensation intact throughout MUSC: 5/5 strength throughout, no gross focal deficits SKIN: warm and dry Laboratory Results: 01/10/18 07:13 Red Blood Count 4.09, Mean Corpuscular Volume 87.8, Mean Corpuscular Hemoglobin 30.6, Mean Corpuscular Hemoglobin Concent 34.8, Mean Platelet Volume 10.0, Neutrophils (%) (Auto) 88.3, Lymphocytes (%) (Auto) 4.6, Monocytes (%) (Auto) 6.6, Eosinophils (%) (Auto) 0.1, Basophils (%) (Auto) 0.1, Neutrophils # (Auto) 12.74, Lymphocytes # (Auto) 0.67, Monocytes # (Auto) 0.96, Eosinophils # (Auto) 0.01, Basophils # (Auto) 0.01 01/10/18 07:13 Test 01/08/18 17:56 01/08/18 20:13 01/08/18 20:20 01/09/18 00:23 Activated Partial Thromboplast Time 38.7 SECONDS (21.0-31.0) Partial Thromboplastin Ratio 1.5 Total Creatine Kinase 133 U/L (39-308) Creatine Kinase MB 0.9 ng/ml (0.5-3.6) Creatine Kinase MB Ratio 0.7 (0-3.0) Lipase 88 U/L (73-393) Thyroid Stimulating Hormone (TSH) 2.240 uIu/ml (0.300-4.500) Troponin I < 0.015 ng/ml (0-0.045) Procalcitonin 0.14 ng/ml (0-0.5) Hepatitis A IgM Antibody NON-REACTIVE (NON-REACTIVE) Hepatitis B Core IgM Antibody NON-REACTIVE (NON-REACTIVE) Hepatitis C Antibody NEG (NEG) Urine Color YELLOW Urine Appearance CLOUDY (CLEAR) Urine pH 6.0 (4.5-7.5) Urine Specific [place] 1.019 (1.000-1.030) Urine Protein 1+ (NEG) Urine Glucose (UA) NEG (NEG) Urine Ketones TRACE (NEG) Urine Occult Blood 2+ (NEG) Urine Nitrite POS (NEG) Urine Bilirubin NEG (NEG) Urine Urobilinogen NEG (NEG) Urine Leukocyte Esterase LARGE (NEG) Urine WBC (Auto) >30 /hpf (0-5) Urine RBC (Auto) 5-10 /hpf (0-4) Urine Hyaline Casts (Auto) 1-5 /lpf (0-5) Urine Epithelial Cells (Auto) 0-5 /lpf (0-5) Urine Bacteria (Auto) 4+ (NEG) Urine Yeast (Auto) BUDDING (NONE PRSENT) Acetaminophen Level 4 ug/ml (10-30) Test 01/09/18 04:52 01/09/18 05:32 01/09/18 15:06 01/09/18 17:03 Urine Opiates Screen POS (NEG) Urine Methadone, Qualitative NEG (NEG) Urine Barbiturates NEG (NEG) Urine Phencyclidine (PCP) Level NEG (NEG) Ur Amphetamine/Methamphetamine NEG (NEG) MDMA (Ecstasy) Screen NEG (NEG) Urine Benzodiazepines Screen NEG (NEG) Urine Cocaine Metabolite NEG (NEG) Urine Marijuana (THC) NEG (NEG) Estimated Average Glucose 120 mg/dl Hemoglobin A1c 5.8 % (4.5-5.6) Direct Bilirubin 0.3 mg/dl (0-0.2) Lactic Acid Level 2.1 mmol/L (0.4-2.0) Test 01/10/18 07:13 White Blood Count 14.44 K/uL (4.8-10.8) Red Blood Count 4.09 M/uL (4.7-6.1) Hemoglobin 12.5 g/dL (14.0-18.0) Hematocrit 35.9 % (42-52) Mean Corpuscular Volume 87.8 fL (80-100) Mean Corpuscular Hemoglobin 30.6 pg (25-34) Mean Corpuscular Hemoglobin Concent 34.8 g/dl (32-36) Platelet Count 163 K/uL (130-400) Mean Platelet Volume 10.0 fL (7.4-10.4) Neutrophils (%) (Auto) 88.3 % Lymphocytes (%) (Auto) 4.6 % Monocytes (%) (Auto) 6.6 % Eosinophils (%) (Auto) 0.1 % Basophils (%) (Auto) 0.1 % Neutrophils # (Auto) 12.74 K/uL (1.4-6.5) Lymphocytes # (Auto) 0.67 K/uL (1.2-3.4) Monocytes # (Auto) 0.96 K/uL (0.11-0.59) Eosinophils # (Auto) 0.01 K/uL (0-0.5) Basophils # (Auto) 0.01 K/uL (0-0.2) RDW Standard Deviation 44.6 fL (36.4-46.3) RDW Coefficient of Variation 13.8 % (11.5-14.5) Immature Granulocyte % (Auto) 0.3 % Immature Granulocyte # (Auto) 0.05 K/uL (0.00-0.02) Prothrombin Time 28.7 SECONDS (9.0-12.0) Prothromb Time International Ratio 2.8 (0.9-1.1) Anion Gap 7.0 mmol/L (3-11) Est Creatinine Clear Calc Drug Dose 140.0 ml/min Estimated GFR () 127.1 Estimated GFR (Non- 109.7 BUN/Creatinine Ratio 8.1 (10-20) Calcium Level 7.8 mg/dl (8.5-10.1) Magnesium Level 2.1 mg/dl (1.8-2.4) Total Bilirubin 0.6 mg/dl (0.2-1) Aspartate Amino Transf (AST/SGOT) 37 U/L (15-37) Alanine Aminotransferase (ALT/SGPT) 96 U/L (12-78) Alkaline Phosphatase 61 U/L (45-117) Total Protein 5.3 gm/dl (6.4-8.2) Albumin 2.0 gm/dl (3.4-5.0) Globulin 3.3 gm/dl (2.5-4.0) Albumin/Globulin Ratio 0.6 (0.9-2) Date/Time Source Procedure Growth Status 01/08/18 21:42 Blood Blood Culture - Preliminary NO GROWTH TO DATE. Resulted 01/09/18 23:56 Stool C.difficile Toxin B Gene (PCR) - Final No C. difficile toxin B gene detected Complete 01/08/18 20:20 Urine , Clean Catch Urine Culture - Final Escherichia Coli Complete Last 24 Hours Test 01/10/18 07:13 White Blood Count 14.44 K/uL Red Blood Count 4.09 M/uL Hemoglobin 12.5 g/dL Hematocrit 35.9 % Mean Corpuscular Volume 87.8 fL Mean Corpuscular Hemoglobin 30.6 pg Mean Corpuscular Hemoglobin Concent 34.8 g/dl Platelet Count 163 K/uL Mean Platelet Volume 10.0 fL Neutrophils (%) (Auto) 88.3 % Lymphocytes (%) (Auto) 4.6 % Monocytes (%) (Auto) 6.6 % Eosinophils (%) (Auto) 0.1 % Basophils (%) (Auto) 0.1 % Neutrophils # (Auto) 12.74 K/uL Lymphocytes # (Auto) 0.67 K/uL Monocytes # (Auto) 0.96 K/uL Eosinophils # (Auto) 0.01 K/uL Basophils # (Auto) 0.01 K/uL RDW Standard Deviation 44.6 fL RDW Coefficient of Variation 13.8 % Immature Granulocyte % (Auto) 0.3 % Immature Granulocyte # (Auto) 0.05 K/uL Prothrombin Time 28.7 SECONDS Prothromb Time International Ratio 2.8 Sodium Level 138 mmol/L Potassium Level 3.9 mmol/L Chloride Level 107 mmol/L Carbon Dioxide Level 24 mmol/L Anion Gap 7.0 mmol/L Blood Urea Nitrogen 5 mg/dl Creatinine 0.67 mg/dl Est Creatinine Clear Calc Drug Dose 140.0 ml/min Estimated GFR () 127.1 Estimated GFR (Non- 109.7 BUN/Creatinine Ratio 8.1 Random Glucose 114 mg/dl Calcium Level 7.8 mg/dl Magnesium Level 2.1 mg/dl Total Bilirubin 0.6 mg/dl Aspartate Amino Transf (AST/SGOT) 37 U/L Alanine Aminotransferase (ALT/SGPT) 96 U/L Alkaline Phosphatase 61 U/L Total Protein 5.3 gm/dl Albumin 2.0 gm/dl Globulin 3.3 gm/dl Albumin/Globulin Ratio 0.6 Date/Time Source Procedure Growth Status 01/09/18 23:56 Stool C.difficile Toxin B Gene (PCR) - Final No C. difficile toxin B gene detected Complete Assessment & Plan 52-year-old male presents with 1 week of low back pain, chills, body aches, headaches along with increased urinary burning and frequency. Patient states that he has had an intermittent cough off and on and is also sick with chills and body aches. The patient reports taking 5-6 doses of regular Tylenol in addition to about 12 Coricidin cold and flu with acetaminophen in them this was over. Of several days and it was reportedly taken per the instructions on the [id number] box. He came in and was found to have sepsis secondary to likely UTI. 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 He also has hypospadia with 2 urethral openings. In the ER he was straight cathed for urinary retention but no Rivas was placed. Rivas was then placed by urologist Dr. López. He reports his abdominal pain has improved overnight and with addition of Pyridium. He still feels a sensation that he has to go to the bathroom but denies dysuria or other pain. He is somewhat tolerating solid foods but has a lack of appetite. He denies any fevers or chills overnight. 1. Sepsis secondary to UTI-abdominal fullness is still present, suspect urinary retention causing abdominal discomfort. Continue Rivas catheter and Pyridium blood cultures are negative, urine culture reveals E. coli. Broad- spectrum antibiotics were stopped and cefuroxime was started. 2. AK I-resolved. 3. Presumed Tylenol toxicity-concern for elevated aminotransferases in setting of unclear etiology. Neck was recommended per poison control and a second bag was given. 4. Hypokalemia-resolved 5. Hypomagnesemia- resolved 6. Atrial flutter-on Coumadin. INR is currently therapeutic, hold coumadin therapy in setting of treatment for potential tylenol toxicity, INR daily, continue amiodarone. Will plan to restart Coumadin tomorrow. 7. URI-patient reports intermittent cough that is nonproductive, chest x-ray was negative and patient symptoms continue to improve. DVT prophylaxis-Coumadin Full code Disposition-plan for home when medically stable Kristyn Hernandez DO [facility] hospitalist Consultants: Dr. Ramu López-Urology Current Inpatient Medications: Current Inpatient Medications Medications (Trade) Dose Ordered Sig/[facility] Route Start Time Stop Time Status Last Admin Dose Admin Prochlorperazine Edisylate 5 mg/ Syringe 5 ml @ 5 mls/min Q6H PRN IV 01/09/18 00:15 02/08/18 00:14 Tramadol HCl (Ultram Tab) not relieved by tylenol @ Q6H PRN PO 01/09/18 00:15 02/08/18 00:14 01/09/18 19:15 50 MG Lorazepam (Ativan Inj) 0.5 mg Q4H PRN IV 01/09/18 00:15 02/08/18 00:14 Morphine Sulfate (MoRPHine SULFATE INJ) 4 mg Q3H PRN IV 01/09/18 00:15 01/23/18 00:14 01/10/18 04:19 4 MG Docusate Sodium (coLACE CAP) 100 mg DAILY PO 01/10/18 08:00 02/09/18 07:59 01/10/18 08:57 100 MG Polyethylene (Miralax Powder Packet) 17 gm DAILY PRN PO 01/09/18 02:00 02/08/18 01:59 Amiodarone HCl (Cordarone Tab) 200 mg DAILY PO 01/09/18 08:00 02/08/18 07:59 01/10/18 08:57 200 MG Phenazopyridine HCl (Pyridium Tab) 100 mg TID PO 01/09/18 14:00 02/08/18 13:59 01/10/18 14:21 100 MG Cefuroxime Axetil (Ceftin Tab) 250 mg BID PO 01/10/18 13:00 01/20/18 12:59 01/10/18 14:40 250 MG
[2018-01-10 23:19] VITALS: BP 122/79; PULSE 97; TEMP 37.9; O2SAT 95
[2018-01-11] MEDS ORDERED: VANCOMYCIN TROUGH ONE (00:30)
[2018-01-11 01:11] VITALS: TEMP 37.8
[2018-01-11 08:02] LABS: HEMATOCRIT 36.3 % (42-52); HEMOGLOBIN 12.6 g/dL (14.0-18.0); MEAN CELL VOLUME 88.3 fL (80-100); MEAN CORPUSCULAR HEMOGLOBIN 30.7 pg (25-34); MEAN CORPUSCULAR HGB CONC 34.7 g/dl (32-36); MEAN PLATELET VOLUME 10.5 fL (7.4-10.4); PLATELET COUNT 234 K/uL (130-400); RED CELL DISTRIBUTION WIDTH CV 13.9 % (11.5-14.5); RED CELL DISTRIBUTION WIDTH SD 45.4 fL (36.4-46.3); WHITE BLOOD COUNT 9.97 K/uL (4.8-10.8)
[2018-01-11 08:09] LABS: INR 2.6 (0.9-1.1)
[2018-01-11 08:18] VITALS: BP 131/87; PULSE 102; TEMP 36.9; O2SAT 92
[2018-01-11 08:29] LABS: ALBUMIN 2.2 gm/dl (3.4-5.0); CALCIUM 7.7 mg/dl (8.5-10.1); CREATININE 0.69 mg/dl (0.60-1.40); POTASSIUM 3.6 mmol/L (3.5-5.1)
[2018-01-11 08:32] LABS: TOTAL PROTEIN 5.8 gm/dl (6.4-8.2)
[2018-01-11] MEDS: PHENAZOPYRIDINE HCL 100 MG TAB PO SCH (08:33)
[2018-01-11] MEDS: AMIODARONE 200 MG TAB PO SCH (08:34)
[2018-01-11] MEDS: CEFUROXIME AXETIL 250 MG TAB PO SCH (08:34)
[2018-01-11] MEDS: DOCUSATE SODIUM 100 MG CAP PO SCH (08:34)
[2018-01-11] MEDS: SULFAMETHOXAZOLE/TRIMETHOPRIM DS 800/160MG TAB PO SCH ×2 (10:42→21:42)
[2018-01-11] MEDS: ATORVASTATIN 40 MG TAB PO SCH (14:09)
[2018-01-11 16:00] VITALS: O2SAT 92
[2018-01-11] MEDS ORDERED: WARFARIN SOD 2.5 MG TAB PO SCH (16:00)
[2018-01-11 21:00] VITALS: BP 120/80; PULSE 80; TEMP 37; O2SAT 95
--- NOTE | 2018-01-11 21:34 | Progress Note ---
Subjective Date of Service: January 11, 2018. Subjective Pt evaluation today including: conversation w/ patient, physical exam, chart review, lab review Voiding: no voiding problems catheter out and pt voiding .he says flow is normal and he feels well Problem List Medical Problems: (1) Dehydration Status: Acute (2) Elevated LFTs Status: Acute Objective Vital Signs Date Time Temp Pulse Resp B/P (MAP) Pulse Ox O2 Delivery O2 Flow Rate FiO2 01/11/18 16:00 92 Room Air 01/11/18 09:00 Room Air 01/11/18 08:18 36.9 102 18 131/87 (102) 92 Room Air 01/11/18 01:11 37.8 01/11/18 00:00 Room Air 01/10/18 23:19 37.9 97 18 122/79 (93) 95 Room Air Laboratory Results Last 24 Hours Test 01/11/18 07:23 White Blood Count 9.97 K/uL Red Blood Count 4.11 M/uL Hemoglobin 12.6 g/dL Hematocrit 36.3 % Mean Corpuscular Volume 88.3 fL Mean Corpuscular Hemoglobin 30.7 pg Mean Corpuscular Hemoglobin Concent 34.7 g/dl RDW Standard Deviation 45.4 fL RDW Coefficient of Variation 13.9 % Platelet Count 234 K/uL Mean Platelet Volume 10.5 fL Prothrombin Time 26.7 SECONDS Prothromb Time International Ratio 2.6 Sodium Level 136 mmol/L Potassium Level 3.6 mmol/L Chloride Level 103 mmol/L Carbon Dioxide Level 27 mmol/L Anion Gap 7.0 mmol/L Blood Urea Nitrogen 5 mg/dl Creatinine 0.69 mg/dl Est Creatinine Clear Calc Drug Dose 135.9 ml/min Estimated GFR () 125.6 Estimated GFR (Non- 108.4 BUN/Creatinine Ratio 7.4 Random Glucose 99 mg/dl Calcium Level 7.7 mg/dl Total Bilirubin 0.8 mg/dl Aspartate Amino Transf (AST/SGOT) 40 U/L Alanine Aminotransferase (ALT/SGPT) 88 U/L Alkaline Phosphatase 65 U/L Total Protein 5.8 gm/dl Albumin 2.2 gm/dl Globulin 3.6 gm/dl Albumin/Globulin Ratio 0.6 Assessment and Plan continue antibiotics for at least 2 weeks .Have him f/u with us in 2 weeks so we can assess urine for infection and yeast
[2018-01-11 23:04] VITALS: BP 108/73; PULSE 103; TEMP 37; O2SAT 95
--- NOTE | 2018-01-12 04:35 | Progress Note ---
Medicine Progress Note Date & Time of Visit: January 11, 2018 at 11:18. Subjective He denies any fevers or chills overnight. He reports getting some sleep and feeling better overall. Tm was 100.4F He is tolerating PO and denies abdominal fullness at this time Objective Last 8 Hrs Date Time Temp Pulse Resp B/P (MAP) Pulse Ox O2 Delivery O2 Flow Rate FiO2 01/11/18 09:00 Room Air 01/11/18 08:18 36.9 102 18 131/87 (102) 92 Room Air Physical Exam: GEN: WNWD, in no acute distress, alert and appropriate HEENT: NC/AT, normal sclerae CARDIO: reg rate, S1/2 heard without m/g/r LUNGS: CTA bilaterally, no crackles, rales or wheezes, good diaphragmatic excursion ABD: soft, some mild discomfort in suprapubic area only but this is again improved, non-distended, no rebound or guarding, +BS EXTREMITY: RP and DP palpable 2+ bilat, no LE swelling or edema, extremities are warm and well-perfused NEURO: CN 2-12 grossly intact, sensation intact throughout MUSC: 5/5 strength throughout, no gross focal deficits SKIN: warm and dry Laboratory Results: 01/11/18 07:23 01/11/18 07:23 Test 01/08/18 17:56 01/08/18 20:13 01/08/18 20:20 01/09/18 00:23 Activated Partial Thromboplast Time 38.7 SECONDS (21.0-31.0) Partial Thromboplastin Ratio 1.5 Total Creatine Kinase 133 U/L (39-308) Creatine Kinase MB 0.9 ng/ml (0.5-3.6) Creatine Kinase MB Ratio 0.7 (0-3.0) Lipase 88 U/L (73-393) Thyroid Stimulating Hormone (TSH) 2.240 uIu/ml (0.300-4.500) Troponin I < 0.015 ng/ml (0-0.045) Procalcitonin 0.14 ng/ml (0-0.5) Hepatitis A IgM Antibody NON-REACTIVE (NON-REACTIVE) Hepatitis B Core IgM Antibody NON-REACTIVE (NON-REACTIVE) Hepatitis C Antibody NEG (NEG) Urine Color YELLOW Urine Appearance CLOUDY (CLEAR) Urine pH 6.0 (4.5-7.5) Urine Specific [place] 1.019 (1.000-1.030) Urine Protein 1+ (NEG) Urine Glucose (UA) NEG (NEG) Urine Ketones TRACE (NEG) Urine Occult Blood 2+ (NEG) Urine Nitrite POS (NEG) Urine Bilirubin NEG (NEG) Urine Urobilinogen NEG (NEG) Urine Leukocyte Esterase LARGE (NEG) Urine WBC (Auto) >30 /hpf (0-5) Urine RBC (Auto) 5-10 /hpf (0-4) Urine Hyaline Casts (Auto) 1-5 /lpf (0-5) Urine Epithelial Cells (Auto) 0-5 /lpf (0-5) Urine Bacteria (Auto) 4+ (NEG) Urine Yeast (Auto) BUDDING (NONE PRSENT) Acetaminophen Level 4 ug/ml (10-30) Test 01/09/18 04:52 01/09/18 05:32 01/09/18 15:06 01/09/18 17:03 Urine Opiates Screen POS (NEG) Urine Codeine Confirmation (GC/MS) NEGATIVE NG/ML (CUTOFF=50) Urine Morphine Confirm (GC/MS) 2580 NG/ML (CUTOFF=50) Urine Hydrocodone Confirm (GC/MS) NEGATIVE NG/ML (CUTOFF=50) Urine Norhydrocodone NEGATIVE NG/ML (CUTOFF=50) Urine Noroxycodone NEGATIVE NG/ML (CUTOFF=50) Urine Oxycodone Confirm (GC/MS) NEGATIVE NG/ML (CUTOFF=50) Urine Oxymorphone Confirm (GC/MS) NEGATIVE NG/ML (CUTOFF=50) Urine Methadone, Qualitative NEG (NEG) Urine Hydromorphone Confirm (GC/MS) 317 NG/ML (CUTOFF=50) Urine Barbiturates NEG (NEG) Urine Phencyclidine (PCP) Level NEG (NEG) Ur Amphetamine/Methamphetamine NEG (NEG) MDMA (Ecstasy) Screen NEG (NEG) Urine Benzodiazepines Screen NEG (NEG) Urine Cocaine Metabolite NEG (NEG) Urine Marijuana (THC) NEG (NEG) Estimated Average Glucose 120 mg/dl Hemoglobin A1c 5.8 % (4.5-5.6) Direct Bilirubin 0.3 mg/dl (0-0.2) Lactic Acid Level 2.1 mmol/L (0.4-2.0) Test 01/10/18 07:13 01/11/18 07:23 Immature Granulocyte % (Auto) 0.3 % White Blood Count 14.44 K/uL (4.8-10.8) Red Blood Count 4.09 M/uL (4.7-6.1) 4.11 M/uL (4.7-6.1) Hemoglobin 12.5 g/dL (14.0-18.0) Hematocrit 35.9 % (42-52) Mean Corpuscular Volume 87.8 fL (80-100) 88.3 fL (80-100) Mean Corpuscular Hemoglobin 30.6 pg (25-34) 30.7 pg (25-34) Mean Corpuscular Hemoglobin Concent 34.8 g/dl (32-36) 34.7 g/dl (32-36) Platelet Count 163 K/uL (130-400) Mean Platelet Volume 10.0 fL (7.4-10.4) 10.5 fL (7.4-10.4) Neutrophils (%) (Auto) 88.3 % Lymphocytes (%) (Auto) 4.6 % Monocytes (%) (Auto) 6.6 % Eosinophils (%) (Auto) 0.1 % Basophils (%) (Auto) 0.1 % Neutrophils # (Auto) 12.74 K/uL (1.4-6.5) Lymphocytes # (Auto) 0.67 K/uL (1.2-3.4) Monocytes # (Auto) 0.96 K/uL (0.11-0.59) Eosinophils # (Auto) 0.01 K/uL (0-0.5) Basophils # (Auto) 0.01 K/uL (0-0.2) Immature Granulocyte # (Auto) 0.05 K/uL (0.00-0.02) Magnesium Level 2.1 mg/dl (1.8-2.4) RDW Standard Deviation 45.4 fL (36.4-46.3) RDW Coefficient of Variation 13.9 % (11.5-14.5) Prothrombin Time 26.7 SECONDS (9.0-12.0) Prothromb Time International Ratio 2.6 (0.9-1.1) Anion Gap 7.0 mmol/L (3-11) Est Creatinine Clear Calc Drug Dose 135.9 ml/min Estimated GFR () 125.6 Estimated GFR (Non- 108.4 BUN/Creatinine Ratio 7.4 (10-20) Calcium Level 7.7 mg/dl (8.5-10.1) Total Bilirubin 0.8 mg/dl (0.2-1) Aspartate Amino Transf (AST/SGOT) 40 U/L (15-37) Alanine Aminotransferase (ALT/SGPT) 88 U/L (12-78) Alkaline Phosphatase 65 U/L (45-117) Total Protein 5.8 gm/dl (6.4-8.2) Albumin 2.2 gm/dl (3.4-5.0) Globulin 3.6 gm/dl (2.5-4.0) Albumin/Globulin Ratio 0.6 (0.9-2) Date/Time Source Procedure Growth Status 01/08/18 21:42 Blood Blood Culture - Preliminary NO GROWTH TO DATE. Resulted 01/09/18 23:56 Stool C.difficile Toxin B Gene (PCR) - Final No C. difficile toxin B gene detected Complete 01/08/18 20:20 Urine , Clean Catch Urine Culture - Final Escherichia Coli Complete Last 24 Hours Test 01/11/18 07:23 White Blood Count 9.97 K/uL Red Blood Count 4.11 M/uL Hemoglobin 12.6 g/dL Hematocrit 36.3 % Mean Corpuscular Volume 88.3 fL Mean Corpuscular Hemoglobin 30.7 pg Mean Corpuscular Hemoglobin Concent 34.7 g/dl RDW Standard Deviation 45.4 fL RDW Coefficient of Variation 13.9 % Platelet Count 234 K/uL Mean Platelet Volume 10.5 fL Prothrombin Time 26.7 SECONDS Prothromb Time International Ratio 2.6 Sodium Level 136 mmol/L Potassium Level 3.6 mmol/L Chloride Level 103 mmol/L Carbon Dioxide Level 27 mmol/L Anion Gap 7.0 mmol/L Blood Urea Nitrogen 5 mg/dl Creatinine 0.69 mg/dl Est Creatinine Clear Calc Drug Dose 135.9 ml/min Estimated GFR () 125.6 Estimated GFR (Non- 108.4 BUN/Creatinine Ratio 7.4 Random Glucose 99 mg/dl Calcium Level 7.7 mg/dl Total Bilirubin 0.8 mg/dl Aspartate Amino Transf (AST/SGOT) 40 U/L Alanine Aminotransferase (ALT/SGPT) 88 U/L Alkaline Phosphatase 65 U/L Total Protein 5.8 gm/dl Albumin 2.2 gm/dl Globulin 3.6 gm/dl Albumin/Globulin Ratio 0.6 Assessment & Plan 52-year-old male presents with 1 week of low back pain, chills, body aches, headaches along with increased urinary burning and frequency. Patient states that he has had an intermittent cough off and on and is also sick with chills and body aches. The patient reports taking 5-6 doses of regular Tylenol in addition to about 12 Coricidin cold and flu with acetaminophen in them this was over. Of several days and it was reportedly taken per the instructions on the [id number] box. He came in and was found to have sepsis secondary to likely UTI. 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 He also has hypospadia with 2 urethral openings. Rivas was then placed by urologist Dr. López. He denies any fevers or chills overnight. He reports getting some sleep and feeling better overall. Tm was 100.4F He is tolerating PO and denies abdominal fullness at this time. 1. Sepsis secondary to E coli UTI-abdominal fullness has resolved. Changed cefuroxime to Bactrim in setting of fever overnight. Bactrim is a better agent for treating a complicated UTI. Per Urology he needs a total of 14 days of abx and a follow-up with them in the clinic to reassess him for infection and/or yeast. 2. Acute urinary retention 2/2 infection-resolved, Rivas removed for TOV. 3. AK I-resolved. 4. Possible Tylenol induced liver injury-concern for elevated aminotransferases in setting of unclear etiology. NAC was recommended per poison control and a second bag was given. I discussed the safety of restatrting his lipitor and coumadin with the poison control center casualty claim adjuster who said this would be fine. These were restarted today. 5. Atrial flutter-on Coumadin. Rate controlled. Cont amio, coumadin restarted. 6. URI-CXR was negative and symptoms cont to improve, likely viral. No further workup or treatment needed. DVT prophylaxis-Coumadin Full code Disposition-plan for home when medically stable DO Rajiv Martinez hospitalist Consultants: Dr. Ramu López-Urology Current Inpatient Medications: Current Inpatient Medications Medications (Trade) Dose Ordered Sig/[place] Route Start Time Stop Time Status Last Admin Dose Admin Prochlorperazine Edisylate 5 mg/ Syringe 5 ml @ 5 mls/min Q6H PRN IV 01/09/18 00:15 02/08/18 00:14 Tramadol HCl (Ultram Tab) not relieved by tylenol @ Q6H PRN PO 01/09/18 00:15 02/08/18 00:14 01/09/18 19:15 50 MG Lorazepam (Ativan Inj) 0.5 mg Q4H PRN IV 01/09/18 00:15 02/08/18 00:14 Morphine Sulfate (MoRPHine SULFATE INJ) 4 mg Q3H PRN IV 01/09/18 00:15 01/23/18 00:14 01/10/18 04:19 4 MG Docusate Sodium (coLACE CAP) 100 mg DAILY PO 01/10/18 08:00 02/09/18 07:59 01/11/18 08:34 100 MG Polyethylene (Miralax Powder Packet) 17 gm DAILY PRN PO 01/09/18 02:00 02/08/18 01:59 Amiodarone HCl (Cordarone Tab) 200 mg DAILY PO 01/09/18 08:00 02/08/18 07:59 01/11/18 08:34 200 MG Phenazopyridine HCl (Pyridium Tab) 100 mg TID PO 01/09/18 14:00 02/08/18 13:59 01/11/18 08:33 100 MG Trimethoprim/ Sulfamethoxazole (Septra Ds 800/ 160MG Tab) 1 tab Q12 PO 01/11/18 09:00 01/21/18 08:59 01/11/18 10:42 1 TAB
[2018-01-12] MEDS ORDERED: SULF-302 PO (06:40)
--- NOTE | 2018-01-12 06:46 | Discharge Instructions ---
Discharge Instructions Date of Service January 12, 2018. Admission Reason for Admission: Sepsis Discharge Discharge Diagnosis / Problem: Sepsis 2/2 E coli UTI, Acute urinary retention Discharge Goals Goal(s): Prevent Disease Progression Activity Recommendations Activity Limitations: per Instructions/Follow-up section . Instructions / Follow-Up Instructions / Follow-Up Please continue all medications as instructed on the discharge list provided. You will need another 10 days of antibiotics to give you the full 14 day course. Please ensure follow-up with [facility] in two weeks time for followup of your urinary retention issues and for repeat urinalysis to ensure no further bacteria or yeast is present. Please follow-up with your coumadin clinic for an INR check within one week of discharge from this hospitalization. Coumadin was stopped and restarted in the hospital which may change your INR. Antibiotics may also affect this number. Please ensure follow-up with your primary care physician within one week of discharge from the hospital. It was a pleasure taking care of you! Call if you have any questions or problems. You can reach a [facility] hospitalist on duty at [facility] 24 hours a day by calling [phone]. Take care of yourself. Kristyn Hernandez DO [facility] Hospitalist Current Hospital Diet Patient's current hospital diet: Regular Diet Discharge Diet Recommended Diet: Regular Diet Procedures Procedures Performed: Rivas catheter Pending Studies Studies pending at discharge: no List of pending studies: Preliminary blood cultures are negative with final readings pending at time of discharge. Laboratory Results Hemoglobin A1c Test 01/09/18 05:32 Range/Units Estimated Average Glucose 120 mg/dl Hemoglobin A1c 5.8 H 4.5-5.6 % Medical Emergencies . Who to Call and When: Medical Emergencies: If at any time you feel your situation is an emergency, please call 911 immediately. . Non-Emergent Contact Non-Emergency issues call your: Primary Care Provider . . "Provider Documentation" section prepared by Kristyn Hernandez. .
[2018-01-12 07:01] LABS: INR 2.5 (0.9-1.1)
[2018-01-12 07:30] VITALS: BP 131/90; PULSE 104; TEMP 36.7; O2SAT 92
[2018-01-12 07:51] LABS: ALBUMIN 2.3 gm/dl (3.4-5.0); CALCIUM 7.8 mg/dl (8.5-10.1); CREATININE 0.75 mg/dl (0.60-1.40); POTASSIUM 3.3 mmol/L (3.5-5.1)
--- NOTE | 2018-01-12 07:56 | Discharge Summary ---
Discharge Summary Date of Service January 12, 2018. Discharge Summary Admission Date: January 08, 2018 at 23:22 Discharge Date: January 12, 2018 Discharge Disposition: Home Principal Diagnosis: Sepsis 2/2 E coli UTI hypospadia acute urinary retention-resolved Procedures: Rivas catheter placement Vaccinations: None. Consultations: Dr. Ramu López-Urology Pending Studies/Follow-Up: see instructions below. 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 Patient reports 1 week ago started with lower back pain, chills, body aches, headache and increased urination and frequency. He reports using a box of Coricidin HBP last week (chlorpheniramine 4mg/acetaminophen 650mg per tab) thinks had 20 tabs in box). Patient states 3- 4 days ago started with diarrhea and has had 8-10 episodes. No diarrhea today. States past several days with lower abdominal aching. Today started with tactile fevers. Yesterday started with dysuria. Today patient states decreased urination and difficulty urinating. States is only able to urinate small amount today. He reports decreased appetite and decreased fluid intake the past week. Denies recent travel. Took 1 g amoxicillin 1 week ago prior to dental appointment, no other antibiotic use. Patient states his started with chills and body aches this week. Denies any hematuria, pyuria, penile discharge, scrotal pain/edema, history BPH, nocturia, or difficulty initiating urine stream. Denies nausea, vomiting, melena, hematochezia, dizziness, syncope , vision changes, neck pain, CP, SOB, orthopnea, palpitations, cough, sore throat, choking, otalgia, rhinorrhea, paresthesias, extremity weakness, extremity edema, rashes, weight loss. Physical Exam (per Admitting): General Appearance: WD/WN, no apparent distress Head: normocephalic, atraumatic Eyes: normal inspection, sclerae normal ENT: hearing grossly normal, pharynx normal, + pertinent finding (Mucous membranes dry) Neck: supple, trachea midline Respiratory/Chest: lungs clear, normal breath sounds, no respiratory distress Cardiovascular: regular rate, rhythm (+ murmur) Abdomen/GI: normal bowel sounds, soft, + pertinent finding (+ Suprapubic tenderness to palpation) Back: no CVA tenderness, + pertinent finding (Positive mild tenderness across lower lumbar region, range of motion intact) Extremities/Musculoskelatal: normal inspection, no calf tenderness, normal capillary refill, no pedal edema, normal range of motion, non-tender Neurologic/Psych: alert, normal mood/affect, oriented x 3 Skin: normal color, warm/dry Hospital Course 52-year-old male presents with 1 week of low back pain, chills, body aches, headaches along with increased urinary burning and frequency. Patient states that he has had an intermittent cough off and on and is also sick with chills and body aches. The patient reports taking 5-6 doses of regular Tylenol in addition to about 12 Coricidin cold and flu with acetaminophen in them this was over. Of several days and it was reportedly taken per the instructions on the [id number] box. He came in and was found to have sepsis secondary to likely UTI. 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 He also has hypospadia with 2 urethral openings. Rivas was then placed by urologist Dr. López. He improved on broad spectrum antibiotics and was subsequently placed on cefuroxime twice daily. However, he fevered overnight and this was switched to Bactrim, a preferred agent in setting of complicated UTI. He did well and remained afebrile and hemodynamically stable and was urinating spontaneously for 24 hours after Rivas removal. Physical exam was unremarkable on discharge including no abdominal tenderness to palpation. He was discharged in stable condition. Outpatient pharmacist contacted me via phone that day concerned about the interactions between Coumadin and Bactrim. I contacted the patient and left a message by phone instructing him to decrease his Coumadin to 2 mg p.o. daily while on the Bactrim for the next 10 days. I discussed this plan with the pharmacist who agreed. 1. Sepsis secondary to E coli UTI-abdominal fullness has resolved. Changed cefuroxime to Bactrim in setting of fever overnight. Bactrim is a better agent for treating a complicated UTI. Per Urology he needs a total of 14 days of abx and a follow-up with them in the clinic to reassess him for infection and/or yeast. 2. Acute urinary retention 2/2 infection-resolved, Rivas removed with successful TOV. 3. AK I-resolved. 4. Possible Tylenol induced liver injury-concern for elevated aminotransferases in setting of unclear etiology. NAC was recommended per poison control and a second bag was given. I discussed the safety of restatrting his lipitor and coumadin with the poison control center fruit express agent who said this would be fine. These were restarted prior to discharge. 5. Atrial flutter-on Coumadin. Rate controlled. Cont amio, coumadin restarted. 6. URI-CXR was negative and symptoms cont to improve, likely viral. No further workup or treatment needed. DVT prophylaxis-Coumadin Full code Disposition-to home Kristyn Hernandez DO [facility] hospitalist Total time spent on discharge = 60 minutes This includes examination of the patient, discharge planning, medication reconciliation, and communication with other providers. Discharge Instructions [address] [address] Discharge Medical Patient Name: Messi Jasso Unit Number: [id number] Date of : 1965 Patient Status: Admitted Inpatient Attending Doctor: Carlos Ferguson MD DI: Medical v5 Discharge Instructions Date of Service January 12, 2018. Admission Reason for Admission: Sepsis Discharge Discharge Diagnosis / Problem: Sepsis 2/2 E coli UTI, Acute urinary retention Discharge Goals Goal(s): Prevent Disease Progression Activity Recommendations Activity Limitations: per Instructions/Follow-up section . Instructions / Follow-Up Instructions / Follow-Up Please continue all medications as instructed on the discharge list provided. You will need another 10 days of antibiotics to give you the full 14 day course. Please ensure follow-up with [facility] in two weeks time for followup of your urinary retention issues and for repeat urinalysis to ensure no further bacteria or yeast is present. Please follow-up with your coumadin clinic for an INR check within one week of discharge from this hospitalization. Coumadin was stopped and restarted in the hospital which may change your INR. Antibiotics may also affect this number. Please ensure follow-up with your primary care physician within one week of discharge from the hospital. It was a pleasure taking care of you! Call if you have any questions or problems. You can reach a [facility] hospitalist on duty at [facility] 24 hours a day by calling [phone]. Take care of yourself. Kristyn Hernandez DO [facility] Hospitalist Current Hospital Diet Patient's current hospital diet: Regular Diet Discharge Diet Recommended Diet: Regular Diet Procedures Procedures Performed: Rivas catheter Pending Studies Studies pending at discharge: no List of pending studies: Preliminary blood cultures are negative with final readings pending at time of discharge. Laboratory Results Hemoglobin A1c Test 01/09/18 05:32 Range/Units Estimated Average Glucose 120 mg/dl Hemoglobin A1c 5.8 H 4.5-5.6 % Medical Emergencies . Who to Call and When: Medical Emergencies: If at any time you feel your situation is an emergency, please call 911 immediately. . Non-Emergent Contact Non-Emergency issues call your: Primary Care Provider . . "Provider Documentation" section prepared by Kristyn Hernandez. . Additional Copies To Lion Weber M.D.
[2018-01-12] MEDS: ATORVASTATIN 40 MG TAB PO SCH (08:27)
[2018-01-12] MEDS: AMIODARONE 200 MG TAB PO SCH (08:28)
[2018-01-12] MEDS: SULFAMETHOXAZOLE/TRIMETHOPRIM DS 800/160MG TAB PO SCH (08:28)
[2018-01-12 08:33] VITALS: BP 131/90; PULSE 104; TEMP 36.7; O2SAT 92
[2018-01-12] MEDS ORDERED: WARFARIN SOD 1.25 MG TAB PO SCH (16:00)
--- NOTE | 2018-01-16 10:19 | EDITING REQUIRED CODING QUERY ---
CODING QUERY To promote full compliance with coding requirements relating to patient care, provider participation is requested in all cases of insurance coder uncertainty. Please assist us with the question(s) below: Please clarify the meaning of ANAND. ANAND is not a valid abbreviation. Thank you. ( x ) Acute Kidney Injury ( x ) Present on admission ( ) Not Present on admission ( ) Acute Kidney Insufficiency ( ) Present on admission ( ) Not Present on admission ( ) Other (Specify): Principal Diagnosis: "_that condition established after study, to be chiefly responsible for occasioning the admission of the patient to the hospital for care." Co-Existing Principal Diagnosis: "_when two or more diagnoses equally meet the criteria for principal diagnosis as determined by the circumstances of admission, diagnostic work up, and/or therapy provided, and the Alphabetic Index, Tabular List, or another coding guideline does not provide sequencing direction, any one of the diagnoses may be sequenced first." "When the physician has documented what appears to be a current diagnosis in the body of the record, but has not included the diagnosis in the final diagnostic statement, the physician should be asked whether the diagnosis should be added." ([facility] 2 QTR90. p3-4)
== END 2018-01-12 09:30 | disposition home or self-care (01) | DRG 871 ==
LOC: C.EDB 17:04 → C.4E 23:22 → ENRESERV 23:33
PROVIDERS: ADMIT Internal Medicine; ATTEND Internal Medicine
PROC: 0T9B7ZZ Drainage of Bladder, Via Natural or Artificial Opening (ICD-10-PCS; principal; 2018-01-08)
DX: A41.9 Sepsis, unspecified organism (principal); Q22.5 Ebstein's anomaly; N39.0 Urinary tract infection, site not specified; S36.118A Other injury of liver, initial encounter; N17.9 Acute kidney failure, unspecified; R65.20 Severe sepsis without septic shock; B96.20 Unspecified Escherichia coli [E. coli] as the cause of diseases classified elsewhere; Q54.3 Hypospadias, perineal; T39.1X1A Poisoning by 4-Aminophenol derivatives, accidental (unintentional), initial encounter; R19.7 Diarrhea, unspecified; E86.0 Dehydration; E87.6 Hypokalemia; E83.42 Hypomagnesemia; R74.0 Nonspecific elevation of levels of transaminase and lactic acid dehydrogenase [LDH]; R73.9 Hyperglycemia, unspecified; I48.0 Paroxysmal atrial fibrillation; J06.9 Acute upper respiratory infection, unspecified; I45.81 Long QT syndrome; Z98.890 Other specified postprocedural states; Z87.891 Personal history of nicotine dependence; Z79.01 Long term (current) use of anticoagulants; Z79.899 Other long term (current) drug therapy; Z80.3 Family history of malignant neoplasm of breast

== ENCOUNTER 2023-02-10 13:41 | Inpatient (IN) ==
[2023-02-10] MEDS ORDERED: METOPROLOL TARTRATE 1 MG/ML VIAL IV STA (14:06)
[2023-02-10 14:27] LABS: Basophils % (auto) 1.1 %; Eosinophils # (auto) 0.11 K/uL (0-0.50); Eosinophils % (auto) 1.2 %; Hematocrit (blood only) 49.5 % (42.0-52.0); Hemoglobin 16.9 g/dl (14.0-18.0); Immature Granulocytes # (auto) 0.02 K/uL (0.01-0.20); Immature Granulocytes % (auto) 0.2 %; Lymphocytes # (auto) 1.57 K/uL (1.2-3.4); Lymphocytes % (auto) 17.1 %; Mean Corpuscular Hemoglobin 31.5 pg (25.0-34.0); Mean Corpuscular Hgb Conc 34.1 g/dL (32.0-36.0); Mean Corpuscular Volume 92.4 fL (80.0-100.0); Mean Platelet Volume 10.5 fL (9.4-12.4); Monocytes # (auto) 0.87 K/uL (0.11-0.59); Monocytes % (auto) 9.5 %; Neutrophils # (auto) 6.49 K/uL (1.40-6.50); Neutrophils % (auto) 70.9 %; Platelet Count 232 K/uL (130-400); RDW Coefficient of Variation 14.4 % (11.5-14.5); RDW Standard Deviation 47.9 fL (36.4-46.3); Red Blood Count 5.36 M/uL (4.70-6.10); White Blood Count 9.16 K/ul (4.8-10.8)
--- NOTE | 2023-02-10 14:30 | Emergency Department Note ---
Impression & Plan Atrial fibrillation with rapid ventricular response, Cough, Edema ED Provider Note Provider: Landen Harrington MD DATE OF SERVICE: 02/10/2023 CHIEF COMPLAINT: Leg swelling, cough, GODWIN HISTORY OF PRESENT ILLNESS: Patient is a 57-year-old gentleman past medical history of paroxysmal atrial fibrillation on Coumadin and amiodarone presenting here today with about a week worth of symptoms. Last week noted some cough symptoms. Seen at PCPs office and put on a 5-day course of azithromycin without change in symptoms. States dry cough without fevers. Reports maybe a bit of swelling more in the left ankle. States has been taking his warfarin and metoprolol medications. Does states he missed a dose or 2 of the metoprolol last weekend due to being mandated for work overtime. Denies chest pain or abdominal pain. No nausea or vomiting reported. PAST MEDICAL HISTORY: As noted above MEDICATIONS: Reviewed home medications SOCIAL HISTORY: , works at [employer] PHYSICAL EXAM: GENERAL: alert and oriented in no acute distress on stretcher Head: normocephalic and atraumatic EYES: No injection, discharge or icterus. NECK: Trachea midline. ENT: Mucous membranes pink and moist. LUNGS: Airway patent. No retractions. Breath sounds clear HEART: Irregularly irregular tachycardic rate and rhythm. No chest wall tenderness ABDOMEN: Soft and non-tender, without guarding or rebound. SKIN: Acyanotic, warm, dry, without rashes EXTREMITIES: Patient with 1+ left lower swelling of the ankle trace swelling of the right ankle. No significant calf tenderness or erythema noted bilaterally. NEUROLOGICAL: No focal deficits. No aphasia. No facial droop or slurred speech. Ambulatory. EK bpm atrial fibrillation with rapid ventricular response with inferior predominately lateral T wave inversions. No acute ST segment elevation with QTc of 416. CONTINUOUS CARDIAC MONITORING: was ordered and showed a heart rate of 100s -150s bpm in atrial fibrillation Patient's laboratory studies and imaging reviewed. Differential includes Reactive airway disease, pneumonia, pneumothorax, COPD, CHF, infections, cardiac ischemia, pulmonary embolism, musculoskeletal, gastrointestinal, as well as other pathologies. IMPRESSION/MEDICAL DECISION MAKING: Patient presents with some slight swelling over the left leg with some dyspnea on exertion and cough. Worse when laying flat but nonproductive no fevers. Did a 5-day course of azithromycin without improvement from the PCP. No prior x- ray. COVID and x-ray and basic blood work be obtained. EKG obtained although is not experiencing chest pain. Appears to be in rapid A-fib. Has a history of atrial fibrillation. INR checked given his anticoagulated status although states he has been slightly subtherapeutic for the last 2 weeks. Given an IV dose of metoprolol to start see if this affects rate control. Not hypoxic here. Question if symptoms are more related to some slight CHF and A-fib causing his dyspnea on exertion and slight leg swelling. Low suspicion for VTE at the anticoagulation status. Blood work here without anemia or leukocytosis. Lower suspicion that this represents infectious pneumonia based on review of x-ray and IV post metoprolol did not affect rate control. Will place on diltiazem drip for rate control to improve his symptoms. No severe electrolyte abnormalities noted or significant acute renal dysfunction. No troponin elevation and thus no signs of demand isc hemia. Borderline AST of 41 I believe is not significant. TSH pending. Discussed with patient given his symptoms discussed further care here at the hospital for control of A-fib and symptoms. DIAGNOSIS: Atrial fibrillation with rapid ventricular response, dyspnea on exertion, leg swelling, cough DISPOSITION: Hospitalist will evaluate for further care here Patient was agreeable with this plan. Critical Care I have personally spent 31 minutes of critical care time in the direct management of this patient. This includes bedside care, interpretation of diagnostic studies, and testing, discussion with consultants, patient, and family members, and other required patient management activities. These 31 minutes is in excess of all separately billable procedures. 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 Paroxysmal atrial fibrillation Surgical History Hx of atrial septal defect repair "1993" Hx of colonoscopy Family History Other ASD (atrial septal defect) Breast cancer Social History Smoking Status: Never smoker Hx Alcohol Use: Yes Hx Substance Use: No Preferred Language: Telugu marital status: Feels Safe at Home: Yes Allergies Allergies Allergy/AdvReac Type Severity Reaction Status Date / Time No Known Allergies Allergy Intermediate Verified 09/10/20 13:28 Home Meds Home Medications Medication Instructions Recorded Confirmed atorvastatin 40 mg tablet 40 mg PO DAILY 02/10/23 02/10/23 metoprolol succinate 25 mg 25 mg PO BID 02/10/23 02/10/23 tablet,extended release 24 hr warfarin 2.5 mg tablet 1.25 mg PO FR@1600 02/10/23 02/10/23 warfarin 2.5 mg tablet 2.5 mg PO SUMOTUWETHSA@1600 02/10/23 02/10/23 Results & Data (ED) Vital Signs Vital Signs - 24 hr 02/10/23 13:46 02/10/23 13:58 02/10/23 14:37 Temperature 36.8 C Temperature Source Temporal Artery Scan Pulse Rate 153 H 123 H Pulse Rate [Apical] 143 H Pulse Rate from SpO2 Sensor Pulse Rhythm Regular Pulse Rhythm [Apical] Regular Pulse Strength Normal Respiratory Rate 20 18 Respiratory Effort / Characteristics Non-Labored Spontaneous Non-Labored Respiratory Depth Normal Normal Respiratory Pattern Regular Regular Blood Pressure 118/82 Blood Pressure [Left Arm] 130/99 Blood Pressure Mean 94 Blood Pressure Mean [Left Arm] 109 Blood Pressure Position Sitting Pulse Oximetry 93 97 Oxygen Delivery Method Room Air Room Air Sepsis Recent Fever Within 48 Hours No Sepsis New/Unexplained Change in Mental Status No Sepsis Action Taken by Nursing No Action Required 02/10/23 14:37 02/10/23 13:55 02/10/23 13:56 Temperature Temperature Source Pulse Rate 142 H Pulse Rate [Apical] Pulse Rate from SpO2 Sensor 143 H Pulse Rhythm Pulse Rhythm [Apical] Pulse Strength Respiratory Rate 12 Respiratory Effort / Characteristics Respiratory Depth Respiratory Pattern Blood Pressure 122/96 Blood Pressure [Left Arm] Blood Pressure Mean 102 Blood Pressure Mean [Left Arm] Blood Pressure Position Pulse Oximetry 96 97 Oxygen Delivery Method Room Air Sepsis Recent Fever Within 48 Hours Sepsis New/Unexplained Change in Mental Status Sepsis Action Taken by Nursing 02/10/23 13:56 02/10/23 14:00 02/10/23 14:01 Temperature Temperature Source Pulse Rate 140 H 136 H Pulse Rate [Apical] Pulse Rate from SpO2 Sensor 114 H 128 H Pulse Rhythm Pulse Rhythm [Apical] Pulse Strength Respiratory Rate 20 22 Respiratory Effort / Characteristics Respiratory Depth Respiratory Pattern Blood Pressure 126/107 H Blood Pressure [Left Arm] Blood Pressure Mean 113 Blood Pressure Mean [Left Arm] Blood Pressure Position Pulse Oximetry 97 87 L Oxygen Delivery Method Sepsis Recent Fever Within 48 Hours Sepsis New/Unexplained Change in Mental Status Sepsis Action Taken by Nursing 02/10/23 14:01 02/10/23 14:30 02/10/23 14:38 Temperature Temperature Source Pulse Rate 136 H 127 H Pulse Rate [Apical] Pulse Rate from SpO2 Sensor 133 H 111 H Pulse Rhythm Pulse Rhythm [Apical] Pulse Strength Respiratory Rate 23 25 H Respiratory Effort / Characteristics Respiratory Depth Respiratory Pattern Blood Pressure 130/99 Blood Pressure [Left Arm] Blood Pressure Mean 116 Blood Pressure Mean [Left Arm] Blood Pressure Position Pulse Oximetry 96 95 Oxygen Delivery Method Sepsis Recent Fever Within 48 Hours Sepsis New/Unexplained Change in Mental Status Sepsis Action Taken by Nursing 02/10/23 14:38 02/10/23 15:00 02/10/23 15:00 Temperature Temperature Source Pulse Rate 136 H 119 H Pulse Rate [Apical] Pulse Rate from SpO2 Sensor 132 H 224 H Pulse Rhythm Pulse Rhythm [Apical] Pulse Strength Respiratory Rate 19 18 Respiratory Effort / Characteristics Respiratory Depth Respiratory Pattern Blood Pressure 133/109 H Blood Pressure [Left Arm] Blood Pressure Mean 121 Blood Pressure Mean [Left Arm] Blood Pressure Position Pulse Oximetry 97 97 Oxygen Delivery Method Sepsis Recent Fever Within 48 Hours Sepsis New/Unexplained Change in Mental Status Sepsis Action Taken by Nursing 02/10/23 15:09 02/10/23 15:09 02/10/23 15:30 Temperature Temperature Source Pulse Rate 117 H Pulse Rate [Apical] Pulse Rate from SpO2 Sensor 151 H Pulse Rhythm Pulse Rhythm [Apical] Pulse Strength Respiratory Rate 25 H Respiratory Effort / Characteristics Respiratory Depth Respiratory Pattern Blood Pressure 114/90 95/71 L Blood Pressure [Left Arm] Blood Pressure Mean 92 79 Blood Pressure Mean [Left Arm] Blood Pressure Position Pulse Oximetry 96 Oxygen Delivery Method Sepsis Recent Fever Within 48 Hours Sepsis New/Unexplained Change in Mental Status Sepsis Action Taken by Nursing 02/10/23 15:30 02/10/23 15:33 02/10/23 15:35 Temperature Temperature Source Pulse Rate 117 H 117 H Pulse Rate [Apical] Pulse Rate from SpO2 Sensor 112 H 104 H Pulse Rhythm Pulse Rhythm [Apical] Pulse Strength Respiratory Rate 22 15 Respiratory Effort / Characteristics Respiratory Depth Respiratory Pattern Blood Pressure 97/77 L Blood Pressure [Left Arm] Blood Pressure Mean 81 Blood Pressure Mean [Left Arm] Blood Pressure Position Pulse Oximetry 93 95 Oxygen Delivery Method Sepsis Recent Fever Within 48 Hours Sepsis New/Unexplained Change in Mental Status Sepsis Action Taken by Nursing 02/10/23 15:35 02/10/23 16:00 02/10/23 16:00 Temperature Temperature Source Pulse Rate 102 H 108 H Pulse Rate [Apical] Pulse Rate from SpO2 Sensor 147 H 101 H Pulse Rhythm Pulse Rhythm [Apical] Pulse Strength Respiratory Rate 18 18 Respiratory Effort / Characteristics Respiratory Depth Respiratory Pattern Blood Pressure 119/96 Blood Pressure [Left Arm] Blood Pressure Mean 100 Blood Pressure Mean [Left Arm] Blood Pressure Position Pulse Oximetry 94 95 Oxygen Delivery Method Room Air Sepsis Recent Fever Within 48 Hours Sepsis New/Unexplained Change in Mental Status Sepsis Action Taken by Nursing 02/10/23 16:30 02/10/23 16:30 02/10/23 17:00 Temperature Temperature Source Pulse Rate 121 H Pulse Rate [Apical] Pulse Rate from SpO2 Sensor 101 H Pulse Rhythm Pulse Rhythm [Apical] Pulse Strength Respiratory Rate 24 Respiratory Effort / Characteristics Respiratory Depth Respiratory Pattern Blood Pressure 116/98 122/93 Blood Pressure [Left Arm] Blood Pressure Mean 100 97 Blood Pressure Mean [Left Arm] Blood Pressure Position Pulse Oximetry 94 Oxygen Delivery Method Sepsis Recent Fever Within 48 Hours Sepsis New/Unexplained Change in Mental Status Sepsis Action Taken by Nursing 02/10/23 17:00 02/10/23 17:30 02/10/23 17:31 Temperature Temperature Source Pulse Rate 131 H 96 H Pulse Rate [Apical] Pulse Rate from SpO2 Sensor 115 H 108 H Pulse Rhythm Pulse Rhythm [Apical] Pulse Strength Respiratory Rate 21 20 Respiratory Effort / Characteristics Respiratory Depth Respiratory Pattern Blood Pressure 113/93 Blood Pressure [Left Arm] Blood Pressure Mean 106 Blood Pressure Mean [Left Arm] Blood Pressure Position Pulse Oximetry 95 97 Oxygen Delivery Method Sepsis Recent Fever Within 48 Hours Sepsis New/Unexplained Change in Mental Status Sepsis Action Taken by Nursing 02/10/23 17:31 02/10/23 18:00 02/10/23 18:01 Temperature Temperature Source Pulse Rate 116 H 96 H Pulse Rate [Apical] Pulse Rate from SpO2 Sensor 123 H 105 H Pulse Rhythm Pulse Rhythm [Apical] Pulse Strength Respiratory Rate 24 23 Respiratory Effort / Characteristics Respiratory Depth Respiratory Pattern Blood Pressure 125/98 Blood Pressure [Left Arm] Blood Pressure Mean 101 Blood Pressure Mean [Left Arm] Blood Pressure Position Pulse Oximetry 92 93 Oxygen Delivery Method Sepsis Recent Fever Within 48 Hours Sepsis New/Unexplained Change in Mental Status Sepsis Action Taken by Nursing 02/10/23 18:01 02/10/23 17:55 02/10/23 19:00 Temperature Temperature Source Pulse Rate 112 H 103 H 132 H Pulse Rate [Apical] Pulse Rate from SpO2 Sensor 117 H 118 H Pulse Rhythm Pulse Rhythm [Apical] Pulse Strength Respiratory Rate 21 21 Respiratory Effort / Characteristics Respiratory Depth Respiratory Pattern Blood Pressure 116/94 Blood Pressure [Left Arm] Blood Pressure Mean 101 Blood Pressure Mean [Left Arm] Blood Pressure Position Pulse Oximetry 85 L 96 Oxygen Delivery Method Room Air Sepsis Recent Fever Within 48 Hours Sepsis New/Unexplained Change in Mental Status Sepsis Action Taken by Nursing Laboratory Data 02/10/23 14:07 02/10/23 14:07 Lab Results 02/10/23 02/10/23 02/10/23 Range/Units 14:07 14:07 14:07 WBC 9.16 (4.8-10.8) K/ul RBC 5.36 (4.70-6.10) M/uL Hgb 16.9 (14.0-18.0) g/dl Hct 49.5 (42.0-52.0) % MCV 92.4 (80.0-100.0) fL MCH 31.5 (25.0-34.0) pg MCHC 34.1 (32.0-36.0) g/dL RDW Std Deviation 47.9 H (36.4-46.3) fL RDW Coeff of Maurice 14.4 (11.5-14.5) % Plt Count 232 (130-400) K/uL MPV 10.5 (9.4-12.4) fL Immature Gran % (Auto) 0.2 % Neut % (Auto) 70.9 % Lymph % (Auto) 17.1 % Coles % (Auto) 9.5 % Eos % (Auto) 1.2 % Baso % (Auto) 1.1 % Neut # (Auto) 6.49 (1.40-6.50) K/uL Lymph # (Auto) 1.57 (1.2-3.4) K/uL Coles # (Auto) 0.87 H (0.11-0.59) K/uL Eos # (Auto) 0.11 (0-0.50) K/uL Baso # (Auto) 0.10 (0-0.2) K/uL Immature Gran # (Auto) 0.02 (0.01-0.20) K/uL PT Cancelled INR Cancelled Sodium 139 (136-145) mmol/L Potassium 4.3 (3.5-5.1) mmol/L Chloride 105 (98-107) mmol/L Carbon Dioxide 26 (21-32) mmol/L Anion Gap 8 (3-11) BUN 15 (6-23) mg/dl Creatinine 1.21 (0.6-1.4) mg/dl Est Cr Clr Drug Dosing 73.0 ml/min Est GFR ( Amer) 76.0 ml/min Est GFR (Non-Af Amer) 65.6 ml/min BUN/Creatinine Ratio 12.4 (10-20) Glucose 82 (70-99(Fasting)) mg/dl Calcium 9.3 (8.6-10.3) mg/dl Magnesium 2.0 (1.7-2.4) mg/dl Total Bilirubin 2.5 H (0.2-1.0) mg/dl AST 41 H (13-39) U/L ALT 35 (7-52) U/L Alkaline Phosphatase 97 (34-104) U/L Troponin I High Sens 13.1 (0-20) pg/ml Total Protein 6.9 (6.0-8.3) gm/dl Albumin 4.1 (3.4-5.0) gm/dl Globulin 2.8 (2.5-4.0) gm/dl Albumin/Globulin Ratio 1.5 (0.9-2) TSH (0.300-4.500) uIu/ml Free T4 (0.61-1.60) ng/dl Urine Color Urine Appearance (Clear) Urine pH (4.5-7.5) Ur Specific Crocker (1.000-1.030) Urine Protein (Negative) Urine Glucose (UA) (Negative) Urine Ketones (Negative) Urine Blood (Negative) Urine Nitrite (Negative) Urine Bilirubin (Negative) Urine Urobilinogen (Negative) Ur Leukocyte Esterase (Negative) Urine WBC (Auto) (0-5) /hpf Urine RBC (Auto) (0-4) /hpf U Hyaline Cast (Auto) (0-5) /lpf U Epithel Cells (Auto) (0-5) /lpf Urine Bacteria (Auto) (Negative) Urine Mucus (None Prsent) SARS-CoV-2, RNA, NAAT (NEGATIVE) 02/10/23 02/10/23 02/10/23 Range/Units 14:07 14:33 14:33 WBC (4.8-10.8) K/ul RBC (4.70-6.10) M/uL Hgb (14.0-18.0) g/dl Hct (42.0-52.0) % MCV (80.0-100.0) fL MCH (25.0-34.0) pg MCHC (32.0-36.0) g/dL RDW Std Deviation (36.4-46.3) fL RDW Coeff of Maurice (11.5-14.5) % Plt Count (130-400) K/uL MPV (9.4-12.4) fL Immature Gran % (Auto) % Neut % (Auto) % Lymph % (Auto) % Coles % (Auto) % Eos % (Auto) % Baso % (Auto) % Neut # (Auto) (1.40-6.50) K/uL Lymph # (Auto) (1.2-3.4) K/uL Coles # (Auto) (0.11-0.59) K/uL Eos # (Auto) (0-0.50) K/uL Baso # (Auto) (0-0.2) K/uL Immature Gran # (Auto) (0.01-0.20) K/uL PT INR Sodium (136-145) mmol/L Potassium (3.5-5.1) mmol/L Chloride (98-107) mmol/L Carbon Dioxide (21-32) mmol/L Anion Gap (3-11) BUN (6-23) mg/dl Creatinine (0.6-1.4) mg/dl Est Cr Clr Drug Dosing ml/min Est GFR ( Amer) ml/min Est GFR (Non-Af Amer) ml/min BUN/Creatinine Ratio (10-20) Glucose (70-99(Fasting)) mg/dl Calcium (8.6-10.3) mg/dl Magnesium (1.7-2.4) mg/dl Total Bilirubin (0.2-1.0) mg/dl AST (13-39) U/L ALT (7-52) U/L Alkaline Phosphatase (34-104) U/L Troponin I High Sens (0-20) pg/ml Total Protein (6.0-8.3) gm/dl Albumin (3.4-5.0) gm/dl Globulin (2.5-4.0) gm/dl Albumin/Globulin Ratio (0.9-2) TSH 7.576 H (0.300-4.500) uIu/ml Free T4 1.35 (0.61-1.60) ng/dl Urine Color Dark Yellow Urine Appearance Clear (Clear) Urine pH 5.0 (4.5-7.5) Ur Specific Crocker 1.022 (1.000-1.030) Urine Protein 2+ H (Negative) Urine Glucose (UA) Negative (Negative) Urine Ketones Trace H (Negative) Urine Blood Negative (Negative) Urine Nitrite Negative (Negative) Urine Bilirubin Negative (Negative) Urine Urobilinogen Negative (Negative) Ur Leukocyte Esterase Negative (Negative) Urine WBC (Auto) 1-5 (0-5) /hpf Urine RBC (Auto) 0-4 (0-4) /hpf U Hyaline Cast (Auto) >30 H (0-5) /lpf U Epithel Cells (Auto) 5-10 H (0-5) /lpf Urine Bacteria (Auto) Negative (Negative) Urine Mucus Present A (None Prsent) SARS-CoV-2, RNA, NAAT NEGATIVE (NEGATIVE) 02/10/23 Range/Units 15:24 WBC (4.8-10.8) K/ul RBC (4.70-6.10) M/uL Hgb (14.0-18.0) g/dl Hct (42.0-52.0) % MCV (80.0-100.0) fL MCH (25.0-34.0) pg MCHC (32.0-36.0) g/dL RDW Std Deviation (36.4-46.3) fL RDW Coeff of Maurice (11.5-14.5) % Plt Count (130-400) K/uL MPV (9.4-12.4) fL Immature Gran % (Auto) % Neut % (Auto) % Lymph % (Auto) % Coles % (Auto) % Eos % (Auto) % Baso % (Auto) % Neut # (Auto) (1.40-6.50) K/uL Lymph # (Auto) (1.2-3.4) K/uL Coles # (Auto) (0.11-0.59) K/uL Eos # (Auto) (0-0.50) K/uL Baso # (Auto) (0-0.2) K/uL Immature Gran # (Auto) (0.01-0.20) K/uL PT 23.1 H INR 2.2 H Sodium (136-145) mmol/L Potassium (3.5-5.1) mmol/L Chloride (98-107) mmol/L Carbon Dioxide (21-32) mmol/L Anion Gap (3-11) BUN (6-23) mg/dl Creatinine (0.6-1.4) mg/dl Est Cr Clr Drug Dosing ml/min Est GFR ( Amer) ml/min Est GFR (Non-Af Amer) ml/min BUN/Creatinine Ratio (10-20) Glucose (70-99(Fasting)) mg/dl Calcium (8.6-10.3) mg/dl Magnesium (1.7-2.4) mg/dl Total Bilirubin (0.2-1.0) mg/dl AST (13-39) U/L ALT (7-52) U/L Alkaline Phosphatase (34-104) U/L Troponin I High Sens (0-20) pg/ml Total Protein (6.0-8.3) gm/dl Albumin (3.4-5.0) gm/dl Globulin (2.5-4.0) gm/dl Albumin/Globulin Ratio (0.9-2) TSH (0.300-4.500) uIu/ml Free T4 (0.61-1.60) ng/dl Urine Color Urine Appearance (Clear) Urine pH (4.5-7.5) Ur Specific Crocker (1.000-1.030) Urine Protein (Negative) Urine Glucose (UA) (Negative) Urine Ketones (Negative) Urine Blood (Negative) Urine Nitrite (Negative) Urine Bilirubin (Negative) Urine Urobilinogen (Negative) Ur Leukocyte Esterase (Negative) Urine WBC (Auto) (0-5) /hpf Urine RBC (Auto) (0-4) /hpf U Hyaline Cast (Auto) (0-5) /lpf U Epithel Cells (Auto) (0-5) /lpf Urine Bacteria (Auto) (Negative) Urine Mucus (None Prsent) SARS-CoV-2, RNA, NAAT (NEGATIVE) Administered Medications Discontinued Medications Diltiazem HCl (Diltiazem Hcl 5 Mg/Ml 5 Ml Vial) 10 mg IV NOW STA Stop: 02/10/23 14:51 Last Admin: 02/10/23 15:07 Dose: 10 mg Documented By: MARLEEN Co-signed By: TASIA Furosemide (Furosemide Inj 20 Mg/2 Ml Vial) 20 mg IV ONE ONE Stop: 02/10/23 17:00 Last Admin: 02/10/23 18:04 Dose: 20 mg Documented By: MARLEEN Diltiazem HCl 125 mg/ Dextrose 125 mls @ 5 mls/hr IV .Q24H MENDY; Protocol Stop: 03/12/23 14:59 Last Titration: 02/10/23 19:11 Dose: 0 mg/hr, 0 mls/hr Documented By: CATY Co-signed By: MARLEEN Titration: 02/10/23 17:30 Dose: 0 mg/hr, 0 mls/hr Documented By: MARLEEN Co-signed By: TASIA Admin: 02/10/23 15:14 Dose: 5 mg/hr, 5 mls/hr Documented By: MARLEEN Co-signed By: TASIA Metoprolol Tartrate (Metoprolol Tartrate 1 Mg/Ml Vial) 5 mg IV NOW STA Stop: 02/10/23 14:07 Last Admin: 02/10/23 14:42 Dose: 5 mg Documented By: LOREN Metoprolol Tartrate (Metoprolol Tartrate 25 Mg Tab) 25 mg PO NOW STA Stop: 02/10/23 16:52 Last Admin: 02/10/23 19:10 Dose: Not Given Documented By: CATY Miscellaneous (Stat Iv Infusion Titration Per Protocol) 1 each N/A NOW STA Stop: 02/10/23 14:51 Last Admin: 02/10/23 15:16 Dose: Not Given Documented By: MARLEEN Imaging Data Radiologist's Impression: Chest X-Ray 02/10/23 14:06 XR chest 1V portable CLINICAL HISTORY: cough, swelling TECHNIQUE: Single frontal radiograph of the chest was obtained. Comparison: Comparison is made to chest radiograph 09/10/2020 FINDINGS: Median sternotomy wires are unchanged. Cardiomegaly is noted. The lungs are clear. No evidence of pleural effusion or pneumothorax. IMPRESSION: No acute abnormalities and in particular no radiographic evidence of pneumonia. ACT 112: Negative or not required by law. Electronically signed by: Anand Ruiz M.D. 02/10/2023 3:29 PM Discharge Plan Visit Data Chief Complaint: Swelling/Edema to Extremity Stated Complaint: LEFT ANKLE SWOLLEN, CHEST CONGESTION ED Provider: Landen Harrington Discharge Problem: Atrial fibrillation with rapid ventricular response, Cough, Edema Patient Disposition: Being Evaluated by Hospitalist Forms Stand Alone Forms: [facility] Prescriptions Prescriptions: No Action atorvastatin 40 mg tablet 40 mg PO DAILY warfarin 2.5 mg tablet 2.5 mg PO SUMOTUWETHSA@1600 warfarin 2.5 mg tablet 1.25 mg PO FR@1600 metoprolol succinate 25 mg tablet extended release 24 hr 25 mg PO BID Referrals Referrals: Lion Weber MD [Primary Care Provider] -
[2023-02-10 14:45] LABS: Albumin Globulin Ratio 1.5 (0.9-2); Albumin Level 4.1 gm/dl (3.4-5.0); BUN Creatinine Ratio 12.4 (10-20); Bilirubin,Total 2.5 mg/dl (0.2-1.0); Calcium 9.3 mg/dl (8.6-10.3); Est GFR (Non-African American) 65.6 ml/min; Globulin 2.8 gm/dl (2.5-4.0); Potassium 4.3 mmol/L (3.5-5.1); Total Protein 6.9 gm/dl (6.0-8.3)
[2023-02-10 14:49] LABS: Troponin I High Sensitivity 13.1 pg/ml (0-20)
[2023-02-10] MEDS ORDERED: dilTIAZem HCl 5 MG/ML 5 ML VIAL IV STA (14:50)
[2023-02-10] MEDS ORDERED: STAT IV Infusion **Titration per Protocol STA (14:50)
[2023-02-10 14:57] LABS: Thyroid Stimulating Hormone 7.576 uIu/ml (0.300-4.500)
[2023-02-10] MEDS ORDERED: dilTIAZem HCL 125 MG in DEXTROSE 5% 100 ML IV SCH (15:00)
[2023-02-10 15:26] LABS: Appearance Urine Clear (Clear); Bacteria Urine Automated Negative (Negative); Bilirubin Urine Negative (Negative); Blood Urine Negative (Negative); Color Urine Dark Yellow; Glucose Urine UA Negative (Negative); Ketones Urine Trace (Negative); Leukocyte Esterase Urine Negative (Negative); Nitrite Urine Negative (Negative); Protein Urine 2+ (Negative); RBC Urine Automated 0-4 /hpf (0-4); Specific Gravity Urine 1.022 (1.000-1.030); Urobilinogen Urine Negative (Negative)
--- NOTE | 2023-02-10 15:30 | XRay Report ---
XR chest 1V portable CLINICAL HISTORY: cough, swelling TECHNIQUE: Single frontal radiograph of the chest was obtained. Comparison: Comparison is made to chest radiograph 09/10/2020 FINDINGS: Median sternotomy wires are unchanged. Cardiomegaly is noted. The lungs are clear. No evidence of ple ural effusion or pneumothorax. IMPRESSION: No acute abnormalities and in particular no radiographic evidence of pneumonia. ACT 112: Negative or not required by law. Electronically signed by: Anand Ruiz M.D. 02/10/2023 3:29 PM
[2023-02-10 15:32] LABS: T4 Free Thyroxine 1.35 ng/dl (0.61-1.60)
[2023-02-10 16:22] LABS: INR 2.2 (0.9-1.1); Prothrombin Time 23.1 Seconds (9.0-12.0)
--- NOTE | 2023-02-10 16:22 | History & Physical Report ---
Date of Service February 10, 2023 Assessment & Plan (1) Atrial fibrillation with rapid ventricular response: Plan This is a 57-year-old male who has significant past medical history of ASD repair 1993, Ebstein's anomaly, atrial arrhythmias, long-term anticoagulation on warfarin who presents to ED secondary to cough and ill feeling x 1 week. Chronic A fib with RVR hx of ASD repair in 1993 Ebstein anomaly hx of recurrent atrial arrhythmias admit to PCU Dicsussed with Cardiology Dr. Iglesias at bedside pt established with EP, Dr. Casas previously had been on amiodarone for ~ 20 years and was discontinued in favor of rate control metoprolol succinate 25mg bid, increased in November by Dr. Carr obtain echocardiogram - concern for possible tachycardia induced [employer] given persistently elevated rates despite metoprolol will d/c Diltiazem continue metoprolol, per Dr. Iglesias possible to start digoxin tomorrow but wants to see EF first avoid any further negative inotrope like Diltiazem at this time obtain blood cultures to r/o infection in setting of Ebstein anomaly will give lasix 20mg x 1 for cardiac asthma [facility] anticoagulation continue warfarin, INR 2.2 regimen of 2.5g all days except monday, 1.25mg HLD continue statin Hay fever prn antihistamines, nebs completed azithromycin as OP few days ago w/o improvement DVT ppx: warfarin Dispo: PCU FULL CODE PCP: Gus Pt was seen and examined in collaboration with Dr. Kelly please see addendum History of Present Illness Chief Complaint: Cough x 1 week. Primary Care Provider: Lion Weber MD This is a 57-year-old male who has significant past medical history of ASD repair 1993, Ebstein's anomaly, atrial arrhythmias, long-term anticoagulation on warfarin who presents to ED secondary to cough and ill feeling x 1 week. Of s ignificant pt has hx of Chronic afib/flutter. He last saw cardiology, Dr. Carr, 10/2022 in regards to patient atrial arrhythmias. He also does follow with EP Dr. Casas. He had been on amiodarone for approximately 20 years and then approximately a year ago he developed atypical atrial flutter and at that point with the help of EP decision was made to have a rate control and not rhythm control. He was taken off amiodarone and started on metoprolol. In October patient's metoprolol succinate was increased to 25 mg twice daily for better heart rate control. Also to note pt saw PCP 02/02 for URI sx and he was placed on azithromycin w/o improvement. He reports dry cough, increased lower extremity swelling. Pt works at [employer]. He admits to a missed dose or two of his metoprolol last week due to being mandated overtime. He states he was really tired after working and felt the second dose of metoprolol made being more tired so he took it upon himself to go off the evening dose of metoprolol. FOr 2 weeks he felt pretty good; however within the last 2 weeks he generally hasn't felt well due to cough and allergy like symptoms. He also hasn't been sleeping good. When he lays down he feels nervous, SOB. Overall he feels weight has been the same. Denies f/c/s, dizziness,lightheaded, ADAMSON, n/v/d, chest pain, melena, hematochezia. In ED patient was found to be in atrial fibrillation with rapid ventricular rate. His atrial fibrillation is chronic but typically under better rate control. He was given diltiazem bolus and started on drip. His CBC and CMP was otherwise generally unremarkable except for mild elevation of total bilirubin at 2.5 and AST of 41. His TSH was mildly elevated at 7.57 but free T4 was normal. Allergies Allergy/AdvReac Type Severity Reaction Status Date / Time No Known Allergies Allergy Intermediate Verified 09/10/20 13:28 Home Medications Medication Instructions Recorded Confirmed Type atorvastatin 40 mg tablet 40 mg PO DAILY 02/10/23 02/10/23 History metoprolol succinate 25 mg 25 mg PO BID 02/10/23 02/10/23 History tablet,extended release 24 hr warfarin 2.5 mg tablet 1.25 mg PO FR@1600 02/10/23 02/10/23 History warfarin 2.5 mg tablet 2.5 mg PO SUMOTUWETHSA@1600 02/10/23 02/10/23 History Past Med/Surg History Medical History (Updated 02/10/23 @ 17:05 by Pelon Iglesias MD) ASD (atrial septal defect) COVID-19 Ebsteins anomaly Paroxysmal atrial fibrillation Surgical History Hx of atrial septal defect repair "1993" Hx of colonoscopy Family History Other ASD (atrial septal defect) Breast cancer Social History Smoking Status: Never smoker Hx Alcohol Use: Yes Hx Substance Use: No Preferred Language: Chinese marital status: Feels Safe at Home: Yes Review of Systems Review of Systems: All systems reviewed & are unremarkable except as noted in HPI & below Physical Exam Physical Exam: Please refer to Dr. Kelly addendum for physical exam findings Results & Data Results & Data Vital Signs (Past 12 Hours) Vital Signs Temp Pulse Pulse Resp BP BP Pulse Ox 02/10/23 15:35 102 H 18 94 02/10/23 15:35 97/77 L 02/10/23 15:33 117 H 15 95 02/10/23 15:30 117 H 22 93 02/10/23 15:30 95/71 L 02/10/23 15:09 117 H 25 H 96 02/10/23 15:09 114/90 02/10/23 15:00 119 H 18 97 02/10/23 15:00 133/109 H 02/10/23 14:38 136 H 19 97 02/10/23 14:38 130/99 02/10/23 14:30 127 H 25 H 95 02/10/23 14:01 136 H 23 96 02/10/23 14:01 126/107 H 02/10/23 14:00 136 H 22 87 L 02/10/23 13:56 140 H 20 97 02/10/23 13:56 122/96 02/10/23 13:55 142 H 12 97 02/10/23 14:37 96 02/10/23 14:37 143 H 18 130/99 97 02/10/23 13:58 123 H 02/10/23 13:46 36.8 C 153 H 20 118/82 93 O2 Del Method 02/10/23 15:35 Room Air 02/10/23 15:35 02/10/23 15:33 02/10/23 15:30 02/10/23 15:30 02/10/23 15:09 02/10/23 15:09 02/10/23 15:00 02/10/23 15:00 02/10/23 14:38 02/10/23 14:38 02/10/23 14:30 02/10/23 14:01 02/10/23 14:01 02/10/23 14:00 02/10/23 13:56 02/10/23 13:56 02/10/23 13:55 02/10/23 14:37 Room Air 02/10/23 14:37 Room Air 02/10/23 13:58 02/10/23 13:46 Room Air Diagnostic Findings Chest X-Ray 02/10/23 14:06 XR chest 1V portable CLINICAL HISTORY: cough, swelling TECHNIQUE: Single frontal radiograph of the chest was obtained. Comparison: Comparison is made to chest radiograph 09/10/2020 FINDINGS: Median sternotomy wires are unchanged. Cardiomegaly is noted. The lungs are clear. No evidence of pleural effusion or pneumothorax. IMPRESSION: No acute abnormalities and in particular no radiographic evidence of pneumonia. ACT 112: Negative or not required by law. Electronically signed by: Anand Ruiz M.D. 02/10/2023 3:29 PM Medications Administered Medication List Diltiazem HCl 125 mg/ Dextrose 125 mls @ 5 mls/hr IV .Q24H MENDY; Protocol Stop: 03/12/23 14:59 Last Admin: 02/10/23 15:14 Dose: 5 mg/hr, 5 mls/hr Documented By: MARLEEN Co-signed By: TASIA Discontinued Medications Diltiazem HCl (Diltiazem Hcl 5 Mg/Ml 5 Ml Vial) 10 mg IV NOW STA Stop: 02/10/23 14:51 Last Admin: 02/10/23 15:07 Dose: 10 mg Documented By: RSLeatha Co-signed By: TASIA Metoprolol Tartrate (Metoprolol Tartrate 1 Mg/Ml Vial) 5 mg IV NOW STA Stop: 02/10/23 14:07 Last Admin: 02/10/23 14:42 Dose: 5 mg Documented By: LOREN Miscellaneous (Stat Iv Infusion Titration Per Protocol) 1 each N/A NOW STA Stop: 02/10/23 14:51 Last Admin: 02/10/23 15:16 Dose: Not Given Documented By: RSL ECG Rate (beats per minute): 131 Rhythm: atrial fibrillation Additional Comments: St wave depression anterolateral COVID-19 Results Results COVID-19 Adm Lab Results: RBC 5.36 M/uL (4.70-6.10) 02/10/23 WBC 9.16 K/ul (4.8-10.8) 02/10/23 Hgb 16.9 g/dl (14.0-18.0) 02/10/23 Hct 49.5 % (42.0-52.0) 02/10/23 Plt Count 232 K/uL (130-400) 02/10/23 Neutrophils (%) (Auto) 70.9 % 02/10/23 Lymphocytes (%) (Auto) 17.1 % 02/10/23 Monocytes # (Auto) 0.87 K/uL (0.11-0.59) H 02/10/23 Eosinophils # (Auto) 0.11 K/uL (0-0.50) 02/10/23 Immature Granulocyte % (Auto) 0.2 % 02/10/23 Neutrophils # (Auto) 6.49 K/uL (1.40-6.50) 02/10/23 Lymphocytes # (Auto) 1.57 K/uL (1.2-3.4) 02/10/23 Monocytes # (Auto) 0.87 K/uL (0.11-0.59) H 02/10/23 Eosinophils # (Auto) 0.11 K/uL (0-0.50) 02/10/23 Basophils # (Auto) 0.10 K/uL (0-0.2) 02/10/23 Immature Granulocyte # (Auto) 0.02 K/uL (0.01-0.20) 3 Na 139 mmol/L (136-145) 02/10/23 K 4.3 mmol/L (3.5-5.1) 02/10/23 Cl 105 mmol/L (98-107) 02/10/23 CO2 26 mmol/L (21-32) 02/10/23 Anion Gap 8 (3-11) 02/10/23 BUN 15 mg/dl (6-23) 02/10/23 Creatinine 1.21 mg/dl (0.6-1.4) 02/10/23 BUN/Creatinine Ratio 12.4 (10-20) 02/10/23 Glucose Level 82 mg/dl (70-99(Fasting)) 02/10/23 Ca 9.3 mg/dl (8.6-10.3) 02/10/23 Total Bilirubin 2.5 mg/dl (0.2-1.0) H 02/10/23 AST/SGOT 41 U/L (13-39) H 02/10/23 ALT/SGPT 35 U/L (7-52) 02/10/23 Alkaline Phosphatase 97 U/L (34-104) 02/10/23 Total Protein 6.9 gm/dl (6.0-8.3) 02/10/23 Albumin 4.1 gm/dl (3.4-5.0) 02/10/23 Globulin 2.8 gm/dl (2.5-4.0) 02/10/23 Albumin/Globulin Ratio 1.5 (0.9-2) 02/10/23 INR 2.2 (0.9-1.1) H 02/10/23 SARS-CoV-2, RNA, NAAT NEGATIVE (NEGATIVE) 02/10/23 Chest X-Ray 02/10/23 Code Status & VTE Plan Code Status FULL CODE VTE Prophylaxis Plan VTE Prophylaxis will be ordered: No Reason for no VTE drug order: Treatment not indicated Supervising Physician Co-Signing Physician Notes I have seen and examined the patient with GLYNN Alvarez. present at bedside. Mr Jasso is a 57-year-old male [facility] pmhx (per chart) of ASD repair 1993, Ebstein's anomaly, atrial arrhythmias (afib/flutter), and long-term anticoagulation on warfarin. He presented due to cough and ill feeling x 1 week. He had been on amiodarone for approximately 20 years and then about a year ago he developed atypical atrial flutter. At that point, with the help of EP, decision was made to have a rate control and not rhythm control. He was taken off amiodarone and started on metoprolol. He had been on metoprolol BID, but after he missed a few doses and noted he felt better (not as tired, squeezing headache resolved) he started taking it just once a day. After a few weeks he developed orthopnea, paroxysmal nocturnal dyspnea, and cough with wheezing. Symptoms were worst overnight and in the morning, but better during the day. As these symptoms developed he started having a difficult time sleeping and believes he's been getting about 2 hours of sleep per night recently. He has also been sneezing and congested so he attributed the above symptoms to allergies/pollen ect. He knows he can not tolerate decongestants due to his heart, and has not taken any. ED course: Mr. Jasso was started on Diltiazem gtt in the ED. HR remains somewhat elevated. Workup notable for TSH slightly elevated, T4 wnl. Mg wnl. Trop wnl. Total bili slightly elevated. VS notable for HR as high as 153 and O2 as low as 85% documented, however noted to have a poor pleth and cold fingers. Oximeter is likely not picking up accurate readings. physical exam: Gen: well nourished, NAD, non-toxic Head: NC AT Eyes: no scleral icterus, conjunctival injection Nose: nares patent Mouth: MMM Neck: supple, trachea midline CV: Irreg irreg, tachy, S1 S2 Pulm: faint wheeze Abd/GI: +BS, soft, NT, ND, no guarding Ext: no significant pretibial edema, peripheral pulses intact MSK: normal bulk and tone Neuro: grossly intact, A&Ox 3, moving all 4 extremities symmetrically Psych: pleasant mood and affect Skin: visible skin is warm, dry, and without rash. Pt was not fully undressed for exam. 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 Cardiology is consulted, appreciate input, will follow recs. We will continue warfarin and monitor INR. Anticipate digoxin tomorrow. rest per attested note above
[2023-02-10 16:38] LABS: Cast Urine Automated >30 /lpf (0-5)
[2023-02-10 16:39] LABS: Mucus Urine Present (None Prsent)
[2023-02-10] MEDS ORDERED: METOPROLOL TARTRATE 25 MG TAB PO STA (16:51)
--- NOTE | 2023-02-10 16:52 | Cardiology Consultation ---
Date of Consultation February 10, 2023 Assessment & Plan (1) Atrial fibrillation with rapid ventricular response: (2) Ebsteins anomaly: (3) Cough: (4) Mild left ventricular systolic dysfunction: Plan Patient is a complex 57-year-old male with congenital heart disease status post atrial septal defect repair 1993 with residual Ebstein's anomaly. He carries a history of paroxysmal atrial flutter treated with amiodarone from [id number]. Atrial arrhythmias became persistent with atrial fibrillation flutter and amiodarone was discontinued. Heart rates have trended higher He presents now with at least 2 weeks history of cough and malaise. No overt fever. Treatment with an oral antibiotic as an outpatient without help. Did note he reduced and held metoprolol dosings due to generalized complaints of weakness and headache Not aware of his heart rate or tachypalpitations but elevated on multiple exam Now with persistent cough wheezing and gurgling in throat when lying in bed at night. Last echocardiogram 1 year ago demonstrated mild reduction in LV systolic function Impression: 1. Persistent atrial fibrillation with elevated ventricular response rate suspect chronic elevation now being driven by current complaints of worsening shortness of breath. Given mild LV dysfunction on last echocardiogram would avoid IV diltiazem. Resume metoprolol succinate at 25 mg twice per day initially possible addition of dig for further rate control pending review of echocardiogram 2. Cough and shortness of breath question component of right heart failure. Echocardiogram will be ordered. Would order blood cultures to exclude underlying infectious process. We will recommend single dose of IV furosemide 20 mg IV this evening 3. Longstanding amiodarone use. Depending on clinical response and testing results pulmonary function testing may be warranted. Cardiology will follow History of Present Illness Reason for Consultation: Cough, shortness of breath, atrial fibrillation with elevated ventricular response rate Requesting Physician: [facility] service History of Present Illness Patient is a 57-year-old male with ongoing cardiac concerns 1. Past paroxysmal atrial fibrillation/flutter now persistent 2. Longstanding amiodarone use discontinued March 2022 3. Status post atrial septal defect repair 1993 4. Ebstein's anomaly with moderate atrial cessation of the right ventricle Patient presents currently noting increasing difficulties with nonproductive cough and shortness of breath gurgling sensation when lying in bed at night. Was seen as an outpatient for complaints on 02/02/2023 and treated with oral antibiotic with azithromycin without improvement. Patient without sense of tachypalpitations dizziness or lightheadedness but notes he is not able to palpate pulse Denies overt fevers or chills. Usually active but has had limitations over the past 2 weeks. No bleeding difficulty melena hematochezia dysuria or hematuria Appetite is generally good. No acute weight gain possible slight increase in abdominal girth No headache or visual changes Allergies Allergy/AdvReac Type Severity Reaction Status Date / Time No Known Allergies Allergy Intermediate Verified 09/10/20 13:28 Home Medications Medication Instructions Recorded Confirmed Type atorvastatin 40 mg tablet 40 mg PO DAILY 02/10/23 02/10/23 History metoprolol succinate 25 mg 25 mg PO BID 02/10/23 02/10/23 History tablet,extended release 24 hr warfarin 2.5 mg tablet 1.25 mg PO FR@1600 02/10/23 02/10/23 History warfarin 2.5 mg tablet 2.5 mg PO SUMOTUWETHSA@1600 02/10/23 02/10/23 History Patient History Medical History (Updated 02/10/23 @ 17:05 by Pelon Iglesias MD) ASD (atrial septal defect) COVID-19 Ebsteins anomaly Paroxysmal atrial fibrillation Surgical History Hx of atrial septal defect repair "1993" Hx of colonoscopy Family History Other ASD (atrial septal defect) Breast cancer Social History Smoking Status: Never smoker Hx Alcohol Use: Yes Hx Substance Use: No Preferred Language: Tristanian marital status: Feels Safe at Home: Yes Review of Systems Review of Systems: All systems reviewed & are unremarkable except as noted in HPI & below Physical Exam Constitutional: + obese; no acute distress Eyes: PERRL, conjunctivae normal, anicteric sclerae ENMT: external ear and nose normal, oropharynx normal Neck: trachea midline, no thyromegaly Respiratory: + audible wheezes (With forced cough) Cardiovascular: Rate/Rhythm: + tachycardic and + irregularly irregular Heart Sounds: + murmur (Grade 2 or 6 systolic murmur right lower sternal border) Vessels: no JVD Extremities: + edema (Mild pedal) Gastrointestinal (Abdomen): Percussion/Palpation: abdomen soft Mild increase in abdominal girth Results & Data Vital Signs (Past 12 Hours) Vital Signs Temp Pulse Pulse Resp BP BP Pulse Ox 02/10/23 15:35 102 H 18 94 02/10/23 15:35 97/77 L 02/10/23 15:33 117 H 15 95 02/10/23 15:30 117 H 22 93 02/10/23 15:30 95/71 L 02/10/23 15:09 117 H 25 H 96 02/10/23 15:09 114/90 02/10/23 15:00 119 H 18 97 02/10/23 15:00 133/109 H 02/10/23 14:38 136 H 19 97 02/10/23 14:38 130/99 02/10/23 14:30 127 H 25 H 95 02/10/23 14:01 136 H 23 96 02/10/23 14:01 126/107 H 02/10/23 14:00 136 H 22 87 L 02/10/23 13:56 140 H 20 97 02/10/23 13:56 122/96 02/10/23 13:55 142 H 12 97 02/10/23 14:37 96 02/10/23 14:37 143 H 18 130/99 97 02/10/23 13:58 123 H 02/10/23 13:46 36.8 C 153 H 20 118/82 93 O2 Del Method 02/10/23 15:35 Room Air 02/10/23 15:35 02/10/23 15:33 02/10/23 15:30 02/10/23 15:30 02/10/23 15:09 02/10/23 15:09 02/10/23 15:00 02/10/23 15:00 02/10/23 14:38 02/10/23 14:38 02/10/23 14:30 02/10/23 14:01 02/10/23 14:01 02/10/23 14:00 02/10/23 13:56 02/10/23 13:56 02/10/23 13:55 02/10/23 14:37 Room Air 02/10/23 14:37 Room Air 02/10/23 13:58 02/10/23 13:46 Room Air Laboratory Results Laboratory Results - last 24 hr 02/10/23 02/10/23 02/10/23 14:07 14:07 14:07 WBC 9.16 RBC 5.36 Hgb 16.9 Hct 49.5 MCV 92.4 MCH 31.5 MCHC 34.1 RDW Std Deviation 47.9 H RDW Coeff of Maurice 14.4 Plt Count 232 MPV 10.5 Immature Gran % (Auto) 0.2 Neut % (Auto) 70.9 Lymph % (Auto) 17.1 [facility] % (Auto) 9.5 Eos % (Auto) 1.2 Baso % (Auto) 1.1 Neut # (Auto) 6.49 Lymph # (Auto) 1.57 [facility] # (Auto) 0.87 H Eos # (Auto) 0.11 Baso # (Auto) 0.10 Immature Gran # (Auto) 0.02 PT Cancelled INR Cancelled Sodium 139 Potassium 4.3 Chloride 105 Carbon Dioxide 26 Anion Gap 8 BUN 15 Creatinine 1.21 Est Cr Clr Drug Dosing 73.0 Est GFR ( Amer) 76.0 Est GFR (Non-Af Amer) 65.6 BUN/Creatinine Ratio 12.4 Glucose 82 Calcium 9.3 Magnesium 2.0 Total Bilirubin 2.5 H AST 41 H ALT 35 Alkaline Phosphatase 97 Troponin I High Sens 13.1 Total Protein 6.9 Albumin 4.1 Globulin 2.8 Albumin/Globulin Ratio 1.5 TSH Free T4 Urine Color Urine Appearance Urine pH Ur Specific [place] Urine Protein Urine Glucose (UA) Urine Ketones Urine Blood Urine Nitrite Urine Bilirubin Urine Urobilinogen Ur Leukocyte Esterase Urine WBC (Auto) Urine RBC (Auto) U Hyaline Cast (Auto) U Epithel Cells (Auto) Urine Bacteria (Auto) Urine Mucus SARS-CoV-2, RNA, NAAT 02/10/23 02/10/23 02/10/23 14:07 14:33 14:33 WBC RBC Hgb Hct MCV MCH MCHC RDW Std Deviation RDW Coeff of Maurice Plt Count MPV Immature Gran % (Auto) Neut % (Auto) Lymph % (Auto) [facility] % (Auto) Eos % (Auto) Baso % (Auto) Neut # (Auto) Lymph # (Auto) [facility] # (Auto) Eos # (Auto) Baso # (Auto) Immature Gran # (Auto) PT INR Sodium Potassium Chloride Carbon Dioxide Anion Gap BUN Creatinine Est Cr Clr Drug Dosing Est GFR ( Amer) Est GFR (Non-Af Amer) BUN/Creatinine Ratio Glucose Calcium Magnesium Total Bilirubin AST ALT Alkaline Phosphatase Troponin I High Sens Total Protein Albumin Globulin Albumin/Globulin Ratio TSH 7.576 H Free T4 1.35 Urine Color Dark Yellow Urine Appearance Clear Urine pH 5.0 Ur Specific [place] 1.022 Urine Protein 2+ H Urine Glucose (UA) Negative Urine Ketones Trace H Urine Blood Negative Urine Nitrite Negative Urine Bilirubin Negative Urine Urobilinogen Negative Ur Leukocyte Esterase Negative Urine WBC (Auto) 1-5 Urine RBC (Auto) 0-4 U Hyaline Cast (Auto) >30 H U Epithel Cells (Auto) 5-10 H Urine Bacteria (Auto) Negative Urine Mucus Present A SARS-CoV-2, RNA, NAAT NEGATIVE 02/10/23 15:24 WBC RBC Hgb Hct MCV MCH MCHC RDW Std Deviation RDW Coeff of Maurice Plt Count MPV Immature Gran % (Auto) Neut % (Auto) Lymph % (Auto) [facility] % (Auto) Eos % (Auto) Baso % (Auto) Neut # (Auto) Lymph # (Auto) [facility] # (Auto) Eos # (Auto) Baso # (Auto) Immature Gran # (Auto) PT 23.1 H INR 2.2 H Sodium Potassium Chloride Carbon Dioxide Anion Gap BUN Creatinine Est Cr Clr Drug Dosing Est GFR ( Amer) Est GFR (Non-Af Amer) BUN/Creatinine Ratio Glucose Calcium Magnesium Total Bilirubin AST ALT Alkaline Phosphatase Troponin I High Sens Total Protein Albumin Globulin Albumin/Globulin Ratio TSH Free T4 Urine Color Urine Appearance Urine pH Ur Specific [place] Urine Protein Urine Glucose (UA) Urine Ketones Urine Blood Urine Nitrite Urine Bilirubin Urine Urobilinogen Ur Leukocyte Esterase Urine WBC (Auto) Urine RBC (Auto) U Hyaline Cast (Auto) U Epithel Cells (Auto) Urine Bacteria (Auto) Urine Mucus SARS-CoV-2, RNA, NAAT Diagnostic Findings Echocardiogram 03/29/2022 The qualitative LV ejection fraction is 45-49% (mildly reduced). Significant trabeculation of the left ventricular apex. Consider noncompaction. There is mild diffuse left ventricular hypokinesis. Ebstein's anomaly is present with moderate atrialization of the right ventricle. The right atrium is severely enlarged. Mild tricuspid regurgitation is present. Mild mitral regurgitation is present. Compared to last available study changes are noted as follows: Left ventricular systolic function has mildly declined. ECG Additional Comments: EKG 02/10/2023 Atrial fibrillation with elevated ventricular response rate Anterolateral ST segment abnormalities with depression and T wave inversion (unchanged from 10/17/2022)
[2023-02-10] MEDS ORDERED: FUROSEMIDE INJ 20 MG/2 ML VIAL IV ONE (16:59)
[2023-02-10] MEDS ORDERED: LEVALBUTEROL HCL 0.63 MG/3 ML NEB NEB PRN (21:29)
[2023-02-10] MEDS ORDERED: ACETAMINOPHEN 325 MG TAB PO PRN (21:29)
[2023-02-10] MEDS ORDERED: ALUMINUM/MAGNESIUM SUSP 30 ML UDC PO PRN (21:29)
[2023-02-10] MEDS ORDERED: FEXOFENADINE 60 MG TAB PO PRN (21:29)
[2023-02-10] MEDS ORDERED: MELATONIN 3 MG TAB PO PRN (21:29)
[2023-02-10] MEDS ORDERED: POLYETHYLENE (MIRALAX) 17 GM PACK PO PRN (21:29)
[2023-02-10] MEDS ORDERED: ONDANSETRON INJ 2 MG/ML 2 ML VIAL IV PRN (21:29)
[2023-02-10] MEDS ORDERED: MAGNESIUM HYDROXIDE SUSP 30 ML UDC PO PRN (21:29)
[2023-02-10] MEDS: METOPROLOL SUCC 25MG EXT REL TAB PO SCH (22:27)
[2023-02-11] MEDS: METOPROLOL SUCC 25MG EXT REL TAB PO SCH (07:54)
[2023-02-11 08:19] LABS: Basophils # (auto) 0.07 K/uL (0-0.2); Eosinophils % (auto) 1.5 %; Hemoglobin 14.9 g/dl (14.0-18.0); Immature Granulocytes # (auto) 0.01 K/uL (0.01-0.20); Immature Granulocytes % (auto) 0.1 %; Lymphocytes # (auto) 1.54 K/uL (1.2-3.4); Mean Corpuscular Hgb Conc 33.1 g/dL (32.0-36.0); Mean Corpuscular Volume 93.8 fL (80.0-100.0); Monocytes # (auto) 0.74 K/uL (0.11-0.59); Neutrophils # (auto) 4.24 K/uL (1.40-6.50); Neutrophils % (auto) 63.4 %; Platelet Count 193 K/uL (130-400); RDW Coefficient of Variation 14.2 % (11.5-14.5); RDW Standard Deviation 49.4 fL (36.4-46.3)
[2023-02-11 08:33] LABS: Albumin Globulin Ratio 1.5 (0.9-2); Albumin Level 3.4 gm/dl (3.4-5.0); BUN Creatinine Ratio 14.3 (10-20); Bilirubin,Total 2.7 mg/dl (0.2-1.0); Calcium 8.7 mg/dl (8.6-10.3); Creatinine Clr Calc Pharmacy 84.2 ml/min; Est GFR (African American) 90.3 ml/min; Est GFR (Non-African American) 77.9 ml/min; Globulin 2.2 gm/dl (2.5-4.0); Magnesium 1.9 mg/dl (1.7-2.4); Potassium 4.1 mmol/L (3.5-5.1); Total Protein 5.6 gm/dl (6.0-8.3)
[2023-02-11 08:40] LABS: INR 1.9 (0.9-1.1); Prothrombin Time 19.8 Seconds (9.0-12.0)
[2023-02-11] MEDS ORDERED: ATORVASTATIN 40 MG TAB PO SCH (09:00)
[2023-02-11] MEDS ORDERED: METOPROLOL TARTRATE 1 MG/ML VIAL IV STA (09:51)
--- NOTE | 2023-02-11 10:37 | Hospitalist Progress Note ---
Date of Service February 11, 2023 Assessment & Plan Admission and Anticipated Discharge Date Admission Date: February 10, 2023 Results & Data Results & Data Vital Signs (Past 12 Hours) Vital Signs Temp Pulse Pulse Resp BP BP Pulse Ox 02/11/23 10:17 156 H 112/91 02/11/23 07:56 36.8 C 142 H 24 110/91 96 02/11/23 05:40 124 H 18 98/81 L 98 02/11/23 03:38 36.9 C 100 H 18 98/81 L 88 L 02/10/23 23:34 36.7 C 88 16 101/80 92 02/10/23 22:57 127 H O2 Del Method O2 Flow Rate 02/11/23 10:17 02/11/23 07:56 Room Air 02/11/23 05:40 Nasal Cannula 2 02/11/23 03:38 Room Air 02/10/23 23:34 Room Air 02/10/23 22:57
[2023-02-11] MEDS ORDERED: DIGOXIN 250 MCG in SYRINGE 9 ML IV ONE (12:00)
--- NOTE | 2023-02-11 12:02 | Cardiology Consultation ---
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 He carries a history of paroxysmal atrial flutter treated with amiodarone from [id number]. Atrial arrhythmias became persistent with atrial fibrillation flutter and amiodarone was discontinued. Heart rates have trended higher He presents now with at least 2 weeks history of cough and malaise. No overt fever. Treatment with an oral antibiotic as an outpatient without help. Did note he reduced and held metoprolol dosings due to generalized complaints of weakness and headache Not aware of his heart rate or tachypalpitations but elevated on multiple exam Now with persistent cough wheezing and gurgling in throat when lying in bed at night. Last echocardiogram 1 year ago demonstrated mild reduction in LV systolic function Impression: 1. Persistent atrial fibrillation with elevated ventricular response rate suspect chronic elevation now being driven by current complaints of worsening shortness of breath. Given mild LV dysfunction on last echocardiogram would avoid IV diltiazem. Resume metoprolol succinate at 25 mg twice per day initially possible addition of dig for further rate control pending review of echocardiogram 2. Cough and shortness of breath question component of right heart failure. Echocardiogram will be ordered. Would order blood cultures to exclude underlying infectious process. We will recommend single dose of IV furosemide 20 mg IV this evening 3. Longstanding amiodarone use. Depending on clinical response and testing results pulmonary function testing may be warranted. Cardiology will follow History of Present Illness Attending Physician: Khadijah Jeong MD Allergies Allergy/AdvReac Type Severity Reaction Status Date / Time No Known Allergies Allergy Intermediate Verified 09/10/20 13:28 Home Medications Medication Instructions Recorded Confirmed Type atorvastatin 40 mg tablet 40 mg PO DAILY 02/10/23 02/10/23 History metoprolol succinate 25 mg 25 mg PO BID 02/10/23 02/10/23 History tablet,extended release 24 hr warfarin 2.5 mg tablet 1.25 mg PO FR@1600 02/10/23 02/10/23 History warfarin 2.5 mg tablet 2.5 mg PO SUMOTUWETHSA@1600 02/10/23 02/10/23 History Patient History Medical History (Updated 02/10/23 @ 19:58 by Landen Harrington M.D.) ASD (atrial septal defect) COVID-19 Ebsteins anomaly Paroxysmal atrial fibrillation Surgical History Hx of atrial septal defect repair "1993" Hx of colonoscopy Family History Other ASD (atrial septal defect) Breast cancer Social History Smoking Status: Never smoker Hx Alcohol Use: Yes Alcohol type: beer Hx Substance Use: No Preferred Language: Slovak Communication Ability: Effective Registered Dietetic Technician Required: No Beliefs That Will Affect Care: None marital status: Current Living Situation: Family Other Information That Helps Us Care for You: No Feels Safe at Home: Yes Safety Concerns: Feels Safe At This Time Assistive Devices: None Physical Exam Constitutional: + obese; no acute distress Eyes: PERRL, conjunctivae normal, anicteric sclerae ENMT: external ear and nose normal, oropharynx normal Neck: trachea midline, no thyromegaly Respiratory: + audible wheezes (With forced cough) Cardiovascular: Rate/Rhythm: + tachycardic and + irregularly irregular Heart Sounds: + murmur (Grade 2 or 6 systolic murmur right lower sternal border) Vessels: no JVD Extremities: + edema (Mild pedal) Gastrointestinal (Abdomen): Percussion/Palpation: abdomen soft Results & Data Vital Signs (Past 12 Hours) Vital Signs Temp Pulse Pulse Resp BP BP Pulse Ox 02/11/23 11:19 36.8 C 126 H 18 95/71 L 93 02/11/23 10:17 156 H 112/91 02/11/23 07:56 36.8 C 142 H 24 110/91 96 02/11/23 05:40 124 H 18 98/81 L 98 02/11/23 03:38 36.9 C 100 H 18 98/81 L 88 L O2 Del Method O2 Flow Rate 02/11/23 11:19 Room Air 02/11/23 10:17 02/11/23 07:56 Room Air 02/11/23 05:40 Nasal Cannula 2 02/11/23 03:38 Room Air
--- NOTE | 2023-02-11 12:09 | Cardiology Progress Note ---
Date of Service February 11, 2023 Assessment & Plan (1) Cardiomyopathy: (2) Atypical atrial flutter: (3) Ebsteins anomaly: Plan Patient is a complex 57-year-old male with prior remote atrial septal defect repair 1993, Ebstein's anomaly, atypical atrial flutter with persistent arrhyth janee times greater than 1 year previously treated with long-term amiodarone, newly observed diffuse cardiomyopathy. Presented with signs and symptoms of worsening shortness of breath and orthopnea with mild congestive heart failure by examination. Moderate wheezing likely cardiac in nature Echocardiogram demonstrates evidence of diffuse LV dysfunction significantly worsened in comparison to prior study of March 2022. Possible noncompaction versus heavy trabeculation of LV apex Telemetry since admission is demonstrated atypical atrial flutter with persistently elevated heart rate and episode of one-to-one conduction with very rapid response Impression: 1. Diffuse cardiomyopathy possibly tachycardia mediated with progressive systolic decline. Echo suggestive of possible noncompaction as well 2. Atypical atrial flutter with rapid response, episode of one-to-one conduction 3. Mild congestive heart failure right greater than left with systolic dysfunction on echocardiogram. Symptoms improved with single dose of IV furosemid. Blood pressure marginal 4. Ebstein's anomaly with biatrial enlargement Plan: Discussed above in detail with patient Patient will warrant further investigation and treatment We will increase metoprolol succinate to 25 mg 3 times daily, single dose digoxin 0.25 mg IV given now Given complexity of above issues potential need for cardiac MRI, cardiac lincoln terization, EP evaluation recommended tertiary center evaluation Patient agreeable. We will make arrangements to [facility] Admission and Anticipated Discharge Date Admission Date: February 10, 2023 Subjective Patient was seen and examined, chart, medications, telemetry reviewed Patient feels improved after single dose of IV furosemide less dyspneic but still very tachycardic. Atypical atrial flutter heart rate 110-140 beats per minute Episode of one-to-one flutter conduction rate 240 last night No fevers or chills Trace pedal edema per patient No chest pains or discomfort no dizziness or lightheadedness Physical Exam Constitutional: no acute distress Eyes: PERRL, conjunctivae normal, anicteric sclerae ENMT: external ear and nose normal, oropharynx normal Neck: trachea midline, no thyromegaly Respiratory: Auscultation: + diminished lung sounds Cardiovascular: Rate/Rhythm: + tachycardic and + irregularly irregular Heart Sounds: normal S1, normal S2 and + murmur (Grade 2/6 distal) Vessels: no JVD Extremities: + edema (Pedal) Gastrointestinal (Abdomen): normal bowel sounds, soft, nontender, no hepatosplenomegaly Musculoskeletal: no cyanosis or clubbing, extremities motor strength 5/5 Results & Data Vital Signs (Past 12 Hours) Vital Signs Temp Pulse Pulse Resp BP BP Pulse Ox 02/11/23 11:19 36.8 C 126 H 18 95/71 L 93 02/11/23 10:17 156 H 112/91 02/11/23 07:56 36.8 C 142 H 24 110/91 96 02/11/23 05:40 124 H 18 98/81 L 98 02/11/23 03:38 36.9 C 100 H 18 98/81 L 88 L O2 Del Method O2 Flow Rate 02/11/23 11:19 Room Air 02/11/23 10:17 02/11/23 07:56 Room Air 02/11/23 05:40 Nasal Cannula 2 02/11/23 03:38 Room Air Laboratory Results Laboratory Results - last 24 hr 02/10/23 02/10/23 02/10/23 14:07 14:07 14:07 WBC 9.16 RBC 5.36 Hgb 16.9 Hct 49.5 MCV 92.4 MCH 31.5 MCHC 34.1 RDW Std Deviation 47.9 H RDW Coeff of Maurice 14.4 Plt Count 232 MPV 10.5 Immature Gran % (Auto) 0.2 Neut % (Auto) 70.9 Lymph % (Auto) 17.1 [place] % (Auto) 9.5 Eos % (Auto) 1.2 Baso % (Auto) 1.1 Neut # (Auto) 6.49 Lymph # (Auto) 1.57 [place] # (Auto) 0.87 H Eos # (Auto) 0.11 Baso # (Auto) 0.10 Immature Gran # (Auto) 0.02 PT Cancelled INR Cancelled Sodium 139 Potassium 4.3 Chloride 105 Carbon Dioxide 26 Anion Gap 8 BUN 15 Creatinine 1.21 Est Cr Clr Drug Dosing 73.0 Est GFR ( Amer) 76.0 Est GFR (Non-Af Amer) 65.6 BUN/Creatinine Ratio 12.4 Glucose 82 Calcium 9.3 Magnesium 2.0 Total Bilirubin 2.5 H AST 41 H ALT 35 Alkaline Phosphatase 97 Troponin I High Sens 13.1 Total Protein 6.9 Albumin 4.1 Globulin 2.8 Albumin/Globulin Ratio 1.5 TSH Free T4 Urine Color Urine Appearance Urine pH Ur Specific [place] Urine Protein Urine Glucose (UA) Urine Ketones Urine Blood Urine Nitrite Urine Bilirubin Urine Urobilinogen Ur Leukocyte Esterase Urine WBC (Auto) Urine RBC (Auto) U Hyaline Cast (Auto) U Epithel Cells (Auto) Urine Bacteria (Auto) Urine Mucus SARS-CoV-2, RNA, NAAT 02/10/23 02/10/23 02/10/23 14:07 14:33 14:33 WBC RBC Hgb Hct MCV MCH MCHC RDW Std Deviation RDW Coeff of Maurice Plt Count MPV Immature Gran % (Auto) Neut % (Auto) Lymph % (Auto) [place] % (Auto) Eos % (Auto) Baso % (Auto) Neut # (Auto) Lymph # (Auto) [place] # (Auto) Eos # (Auto) Baso # (Auto) Immature Gran # (Auto) PT INR Sodium Potassium Chloride Carbon Dioxide Anion Gap BUN Creatinine Est Cr Clr Drug Dosing Est GFR ( Amer) Est GFR (Non-Af Amer) BUN/Creatinine Ratio Glucose Calcium Magnesium Total Bilirubin AST ALT Alkaline Phosphatase Troponin I High Sens Total Protein Albumin Globulin Albumin/Globulin Ratio TSH 7.576 H Free T4 1.35 Urine Color Dark Yellow Urine Appearance Clear Urine pH 5.0 Ur Specific [place] 1.022 Urine Protein 2+ H Urine Glucose (UA) Negative Urine Ketones Trace H Urine Blood Negative Urine Nitrite Negative Urine Bilirubin Negative Urine Urobilinogen Negative Ur Leukocyte Esterase Negative Urine WBC (Auto) 1-5 Urine RBC (Auto) 0-4 U Hyaline Cast (Auto) >30 H U Epithel Cells (Auto) 5-10 H Urine Bacteria (Auto) Negative Urine Mucus Present A SARS-CoV-2, RNA, NAAT NEGATIVE 02/10/23 02/11/23 02/11/23 15:24 06:50 06:50 WBC 6.70 RBC 4.80 Hgb 14.9 Hct 45.0 MCV 93.8 MCH 31.0 MCHC 33.1 RDW Std Deviation 49.4 H RDW Coeff of [place] 14.2 Plt Count 193 MPV 11.0 Immature Gran % (Auto) 0.1 Neut % (Auto) 63.4 Lymph % (Auto) 23.0 [place] % (Auto) 11.0 Eos % (Auto) 1.5 Baso % (Auto) 1.0 Neut # (Auto) 4.24 Lymph # (Auto) 1.54 [place] # (Auto) 0.74 H Eos # (Auto) 0.10 Baso # (Auto) 0.07 Immature Gran # (Auto) 0.01 PT 23.1 H 19.8 H INR 2.2 H 1.9 H Sodium Potassium Chloride Carbon Dioxide Anion Gap BUN Creatinine Est Cr Clr Drug Dosing Est GFR ( Amer) Est GFR (Non-Af Amer) BUN/Creatinine Ratio Glucose Calcium Magnesium Total Bilirubin AST ALT Alkaline Phosphatase Troponin I High Sens Total Protein Albumin Globulin Albumin/Globulin Ratio TSH Free T4 Urine Color Urine Appearance Urine pH Ur Specific [place] Urine Protein Urine Glucose (UA) Urine Ketones Urine Blood Urine Nitrite Urine Bilirubin Urine Urobilinogen Ur Leukocyte Esterase Urine WBC (Auto) Urine RBC (Auto) U Hyaline Cast (Auto) U Epithel Cells (Auto) Urine Bacteria (Auto) Urine Mucus SARS-CoV-2, RNA, NAAT 02/11/23 06:50 WBC RBC Hgb Hct MCV MCH MCHC RDW Std Deviation RDW Coeff of [place] Plt Count MPV Immature Gran % (Auto) Neut % (Auto) Lymph % (Auto) [place] % (Auto) Eos % (Auto) Baso % (Auto) Neut # (Auto) Lymph # (Auto) [place] # (Auto) Eos # (Auto) Baso # (Auto) Immature Gran # (Auto) PT INR Sodium 140 Potassium 4.1 Chloride 107 Carbon Dioxide 25 Anion Gap 8 BUN 15 Creatinine 1.05 Est Cr Clr Drug Dosing 84.2 Est GFR ( Amer) 90.3 Est GFR (Non-Af Amer) 77.9 BUN/Creatinine Ratio 14.3 Glucose 74 Calcium 8.7 Magnesium 1.9 Total Bilirubin 2.7 H AST 28 ALT 26 Alkaline Phosphatase 73 Troponin I High Sens Total Protein 5.6 L Albumin 3.4 Globulin 2.2 L Albumin/Globulin Ratio 1.5 TSH Free T4 Urine Color Urine Appearance Urine pH Ur Specific [place] Urine Protein Urine Glucose (UA) Urine Ketones Urine Blood Urine Nitrite Urine Bilirubin Urine Urobilinogen Ur Leukocyte Esterase Urine WBC (Auto) Urine RBC (Auto) U Hyaline Cast (Auto) U Epithel Cells (Auto) Urine Bacteria (Auto) Urine Mucus SARS-CoV-2, RNA, NAAT Diagnostic Findings Echocardiogram 02/11/2023 Left ventricle is normal in size There is marked trabeculation of the LV apex possible noncompaction There is severe global hypokinesis EF 20-25% There is biatrial enlargement Ebstein's anomaly is present with moderate atrialization of the right ventricle The mitral valve leaflets are mildly thickened and there is moderate to severe mitral regurgitation There is mild tricuspid sufficiency
[2023-02-11] MEDS ORDERED: METOPROLOL SUCC 25MG EXT REL TAB PO SCH (14:00)
--- NOTE | 2023-02-11 14:46 | Discharge Summary ---
Date of Service February 11, 2023 Admission HPI Per Admitting Provider This is a 57-year-old male who has significant past medical history of ASD repair 1993, Ebstein's anomaly, atrial arrhythmias, long-term anticoagulation on warfarin who presents to ED secondary to cough and ill feeling x 1 week. Of significant pt has hx of Chronic afib/flutter. He last saw cardiology, Dr. Carr, 10/2022 in regards to patient atrial arrhythmias. He also does follow with EP Dr. Casas. He had been on amiodarone for approximately 20 years and then approximately a year ago he developed atypical atrial flutter and at that point with the help of EP decision was made to have a rate control and not rhy thm control. He was taken off amiodarone and started on metoprolol. In October patient's metoprolol succinate was increased to 25 mg twice daily for better heart rate control. Also to note pt saw PCP 02/02 for URI sx and he was placed on azithromycin w/o improvement. He reports dry cough, increased lower extremity swelling. Pt works at [employer]. He admits to a missed dose or two of his metoprolol last week due to being mandated overtime. He states he was really tired after working and felt the second dose of metoprolol made being more tired so he took it upon himself to go off the evening dose of metoprolol. FOr 2 weeks he felt pretty good; however within the last 2 weeks he generally hasn't felt well due to cough and allergy like symptoms. He also hasn't been sleeping good. When he lays down he feels nervous, SOB. Overall he feels weight has been the same. Denies f/c/s, dizziness,lightheaded, ADAMSON, n/v/d, chest pain, melena, hematochezia. In ED patient was found to be in atrial fibrillation with rapid ventricular rate. His atrial fibrillation is chronic but typically under better rate control. He was given diltiazem bolus and started on drip. His CBC and CMP was otherwise generally unremarkable except for mild elevation of total bilirubin at 2.5 and AST of 41. His TSH was mildly elevated at 7.57 but free T4 was normal. Admission Exam Per Admitting Provider Gen: well nourished, NAD, non-toxic Head: NC AT Eyes: no scleral icterus, conjunctival injection Nose: nares patent Mouth: MMM Neck: supple, trachea midline CV: Irreg irreg, tachy, S1 S2 Pulm: faint wheeze Abd/GI: +BS, soft, NT, ND, no guarding Ext: no significant pretibial edema, peripheral pulses intact MSK: normal bulk and tone Neuro: grossly intact, A&Ox 3, moving all 4 extremities symmetrically Psych: pleasant mood and affect Skin: visible skin is warm, dry, and without rash. Pt was not fully undressed for exam. Principal Diagnosis Cardiomyopathy Atypical atrial flutter with rapid ventricular rate Discharge Exam Constitutional + well hydrated; no acute distress Eyes PERRL, conjunctivae normal, anicteric sclerae ENMT external ear and nose normal, oropharynx normal Respiratory normal respiratory effort, lungs clear to auscultation Cardiovascular Rate/Rhythm: + tachycardic and + irregularly irregular S1 S2 Gastrointestinal (Abdomen) normal bowel sounds, soft, nontender, no hepatosplenomegaly Musculoskeletal +pedal edema Neurologic PERRL, EOMI, accommodation nl, no face palsy, no dysarthria Psychiatric A+Ox3, euthymic affect Discharge Data Allergies Allergy/AdvReac Type Severity Reaction Status Date / Time No Known Allergies Allergy Intermediate Verified 09/10/20 13:28 Consultations 02/10/23 15:42 ED Decision to Admit Stat 02/10/23 15:49 Consult Cardiology Routine Hospital Course (1) Atrial fibrillation with rapid ventricular response: Plan 57-year-old male who has significant past medical history of ASD repair 1993, Ebstein's anomaly, atrial arrhythmias, long-term anticoagulation on warfarin who presents to ED secondary to cough and ill feeling x 1 week. Atypical Atrial flutter with RVR History of ASD repair in 1993 Ebstein anomaly Previously had been on amiodarone for ~ 20 years and was discontinued in favor of rate control Was on metoprolol succinate 25mg bid, increased in November by Dr. Carr CXR did not show any acute abnormalities Echo today noted reduced EF of 20-25%, severe global hypokinesis, marked trabeculation of LV apex, possible noncompaction, mitral leaflets are thickened, mod to severe MR, Ebstein's anomaly with atrialization of RV, mild TR Patient still having RVR Evaluated by Route Carrier today. Metoprolol increased to TID today. Route Carrier Dr Iglesias spoke with Cardiology at [facility] and patient was accepted for transfer. He will need further eval with cardiac MRI, possible cardiac cath and EP eval. Patient accepted by Dr Greyson [facility] nursing home anticoagulation On admission, INR 2.2 On chronic warfarin of of 2.5mg all days except monday, 1.25mg HLD continue statin Hay fever Prn antihistamines, nebs completed azithromycin as OP few days ago w/o improvement Total Time Total Time Spent Total Time Spent (In Minutes): 50 Total Time Includes: Examination of the Patient, Discharge Planning, Medication Reconciliation and Communication With Other Providers Discharge Plan Discharge Items Patient Disposition: Transfer Acute Care Hospital Reason For Visit: symptomatic afib Discharge Diagnosis: Cardiomyopathy Atypical atrial flutter Activity: Resume your previous activity Non-emergency contact: Primary Care Provider and Route Carrier Call non-emergency contact if: you have any medication questions Follow-up/Referrals: Lion Weber MD [Primary Care Provider] - Diet: Heart Healthy Addtl Attending Provider Instructions: Mr Jasso. You presented to the hospital with feeling unwell, cough and shortness of breath . You were evaluated and noted to have Atrial flutter with rapid ventricular rate. Your Echocardiogram noted reduced EF of 20-25% and other abnormalities. Due to need for Possible cardiac catheterization, Electrophysiology evaluation and other cardiovascular management, You are being transferred to [facility] for continued management. It was a pleasure taking care of you. Pending Studies at Discharge: No Stand-Alone Forms: My [facility] Skilled Items Patient informed of condition?: Yes DNR: No Discharge Level of Care: Other Communicable Disease: No Discharge Prognosis: Stable Lines: Peripheral IV Urinary Catheter: No Medications and DC Order Prescriptions: Continued atorvastatin 40 mg tablet 40 mg PO DAILY warfarin 2.5 mg tablet 2.5 mg PO SUMOTUWETHSA@1600 warfarin 2.5 mg tablet 1.25 mg PO FR@1600 metoprolol succinate 25 mg tablet extended release 24 hr 25 mg PO BID Discharge Orders: Discharge Order (Routine); Ordered 02/11/23 Ordered By: Khadijah Jeong Admission Data Admit Date/Time: 02/10/23 15:49 Attending Provider: Khadijah Jeong I. Admit Provider: Maame Kelly Primary Care Provider: Lion Weber Other Providers: Pelon Iglesias ; Maame Kelly Other Interventions: Discharge Summary Assessment (RN) Last Done: 02/11/23 14:54
[2023-02-11] MEDS ORDERED: WARFARIN SOD 2.5 MG TAB PO SCH (16:00)
--- NOTE | 2023-02-12 06:25 | Electrocardiogram Report ---
Test Reason : Blood Pressure : / mmHG Vent. Rate : 131 BPM Atrial Rate : 000 BPM P-R Int : 000 ms QRS Dur : 086 ms QT Int : 306 ms P-R-T Axes : 000 -10 191 degrees QTc Int : 452 ms Atrial fibrillation with rapid ventricular response Abnormal ECG When compared with ECG of 10-SEP-2020 12:34, No significant change was found Confirmed by Natan Fleming ([id number]) on 02/12/2023 6:25:02 AM Referred By: REFERRED SELF Confirmed By:Natan Fleming
--- NOTE | 2023-02-12 07:29 | Electrocardiogram Report ---
Test Reason : Blood Pressure : / mmHG Vent. Rate : 127 BPM Atrial Rate : 122 BPM P-R Int : 000 ms QRS Dur : 090 ms QT Int : 304 ms P-R-T Axes : 000 000 215 degrees QTc Int : 441 ms Atrial fibrillation with rapid ventricular response Abnormal ECG When compared with ECG of 10-FEB-2023 13:59, No significant change was found Confirmed by Natan Fleming ([id number]) on 02/12/2023 7:29:35 AM Referred By: REFERRED SELF Confirmed By:Natan Fleming
[2023-02-17] MEDS ORDERED: WARFARIN SOD 1.25 MG TAB PO SCH (16:00)
== END 2023-02-11 17:18 | disposition short-term general hospital (02) | DRG 314 ==
LOC: ED 13:41 → SUATTDRO 15:49 → 2E 15:49